=== PATIENT | female | born 1935 | race Caucasian/White ===

== ENCOUNTER → 2016-03-13 | Outpatient (CLI) | payer OTHER ==
[~2016-03-13] MED LIST: ANT25 PO; ASPEC81 PO; ASPI1TAB83 PO; COCO1CAP PO; CYAN500T PO; ESCI1TAB9 PO; IBUP-103 PO; MECL1TAB42 PO; METO50TA16 PO; OMEG10007 PO; POTA10CA28 PO; SPIR50TA PO; TAMO20TA9 PO; VERA120T15 PO; [UNRECOGNIZED DRUG - CODE] PO
== END | disposition home or self-care (01) ==
LOC: C.LABPVFM 03-11 13:24
PROVIDERS: ATTEND Family Medicine
DX: R05 Cough (principal)

== ENCOUNTER → 2016-04-14 | Outpatient (CLI) | payer OTHER ==
[~2016-04-14] MED LIST changes: +TAMO20TA47 PO; -TAMO20TA9 PO
--- NOTE | 2016-04-14 10:17 | DIAGNOSTIC IMAGING REPORT ---
CHEST 2 VIEWS ROUTINE CLINICAL HISTORY: Cough. COMPARISON STUDY: Chest radiograph November 02, 2015. FINDINGS: The lung volumes are normal. There is no pneumothorax or pleural effusion. Pulmonary vascularity is normal. Hazy opacity along left heart border is unchanged and likely reflects epicardial fat pad or atelectasis. Minimal right lower lung opacity favors atelectasis. There is no consolidation to suggest pneumonia. Cardiac size is normal. Mediastinal contours are normal. IMPRESSION: 1. No acute cardiopulmonary findings. 2. Mild bibasilar opacities which favor atelectasis. Electronically signed by: Manuel Garsia M.D. 04/14/2016 10:16 AM Dictated Date/Time: 04/14/2016 10:15 AM
== END | disposition home or self-care (01) ==
LOC: C.RADPV 09:58
PROVIDERS: ATTEND Family Medicine
DX: R05 Cough (principal)

== ENCOUNTER → 2016-06-23 | Outpatient (CLI) | payer OTHER ==
[~2016-06-23] MED LIST changes: -TAMO20TA47 PO; +TAMO20TA9 PO
[2016-06-23 12:13] LABS: BASO % 0.6 %; BASO ABS # 0.04 K/uL (0-0.2); COMPLETE YES; EOS % 4.1 %; HEMATOCRIT 42.8 % (37-47); IG% 0.5 %; LYMPH % 43.7 %; LYMPH ABS # 2.79 K/uL (1.2-3.4); MEAN CELL VOLUME 92.2 fL (80-100); MEAN CORPUSCULAR HGB CONC 32.5 g/dl (32-36); MEAN PLATELET VOLUME 9.7 fL (7.4-10.4); MONO % 11.4 %; NEUT % 39.7 %; PLATELET COUNT 235 K/uL (130-400); RED BLOOD COUNT 4.64 M/uL (4.2-5.4); WHITE BLOOD COUNT 6.38 K/uL (4.8-10.8)
[2016-06-23 13:37] LABS: BLOOD UREA NITROGEN 14 mg/dl (7-18); CALCIUM 8.8 mg/dl (8.5-10.1); CARBON DIOXIDE 30 mmol/L (21-32); CHLORIDE 106 mmol/L (98-107); GLUCOSE 96 mg/dl (70-99); MAGNESIUM 2.3 mg/dl (1.8-2.4); POTASSIUM 4.7 mmol/L (3.5-5.1); SODIUM 142 mmol/L (136-145)
--- NOTE | 2016-07-08 10:27 | CODING QUERY MEDICAL NECESSITY ---
CQSUPPORTING DIAGNOSIS NEEDED A supporting diagnosis is required for the test/procedure performed on this patient in order for us to be reimbursed by the patient's insurance. Please provide a supporting diagnosis for the following test/procedure listed below next to the test name along with your signature. *If there is no additional diagnosis for this patient that would support the following test/procedure please document that below next to the test/procedure. Test(s)/Procedure(s) that require a supporting diagnosis: DOS 06/23/16 VITAMIN D TEST Provider Signature: Date: Thank you Lelia Ortega Health Information Management Once completed, please kindly fax back to [phone] For questions please call [phone]
== END | disposition home or self-care (01) ==
LOC: C.LAB1850 10:06
PROVIDERS: ATTEND Family Medicine
DX: I47.1 Supraventricular tachycardia (principal); E78.5 Hyperlipidemia, unspecified; R39.15 Urgency of urination; F41.9 Anxiety disorder, unspecified; G20 Parkinson's disease; R05 Cough; R53.83 Other fatigue

== ENCOUNTER 2016-11-01 18:17 | Observation (INO) | payer OTHER ==
[~2016-11-01] VITALS: Ht 170.2 cm; Wt 76.9 kg
[2016-11-01] MEDS: SODIUM CHLORIDE 0.9% 1000ML 1,000 ML IV SCH (00:25)
[~2016-11-01 18:17] MED LIST changes: -ASPI1TAB83 PO; -COCO1CAP PO; -ESCI1TAB9 PO; -MECL1TAB42 PO; -METO50TA16 PO; -SPIR50TA PO; +TAMO20TA47 PO; -TAMO20TA9 PO
[2016-11-01] MEDS ORDERED: MECLIZINE HCL 25 MG TAB PO STA (18:40)
--- NOTE | 2016-11-01 19:02 | DIAGNOSTIC IMAGING REPORT ---
CHEST ONE VIEW PORTABLE CLINICAL HISTORY: 81 years-old Female presenting with cp. TECHNIQUE: Portable upright AP view of the chest was obtained. COMPARISON: 04/14/2016. FINDINGS: The patient is BAKER rotated. Top normal cardiac size. Minimal persistent bandlike opacity in the lingula, likely atelectasis or scarring. No pleural effusion or pneumothorax. Osseous structures normal. Upper abdomen normal. IMPRESSION: 1. No acute cardiopulmonary disease. Electronically signed by: Herber Calvillo M.D. 11/01/2016 7:01 PM Dictated Date/Time: 11/01/2016 7:00 PM
[2016-11-01] MEDS ORDERED: ASPI1TAB83 PO (19:18)
[2016-11-01] MEDS ORDERED: MECL1TAB42 PO (19:20)
[2016-11-01] MEDS ORDERED: COCO1CAP PO (19:24)
[2016-11-01 19:27] LABS: BASO % 0.3 %; BASO ABS # 0.02 K/uL (0-0.2); COMPLETE YES; EOS % 1.1 %; HEMATOCRIT 47.6 % (37-47); IG% 0.5 %; LYMPH % 24.5 %; LYMPH ABS # 1.58 K/uL (1.2-3.4); MEAN CELL VOLUME 90.8 fL (80-100); MEAN CORPUSCULAR HEMOGLOBIN 29.6 pg (25-34); MEAN CORPUSCULAR HGB CONC 32.6 g/dl (32-36); MEAN PLATELET VOLUME 9.6 fL (7.4-10.4); MONO % 9.6 %; PLATELET COUNT 206 K/uL (130-400); RED BLOOD COUNT 5.24 M/uL (4.2-5.4); WHITE BLOOD COUNT 6.46 K/uL (4.8-10.8)
[2016-11-01 19:41] LABS: INR 1.1 (0.9-1.1); PROTHROMBIN TIME (PATIENT) 11.5 SECONDS (9.0-12.0)
[2016-11-01 19:43] LABS: BUN/CREATININE RATIO 20.6 (10-20); CALCIUM 9.5 mg/dl (8.5-10.1); CREATININE 1.1 mg/dl (0.60-1.20); POTASSIUM 4.5 mmol/L (3.5-5.1)
--- NOTE | 2016-11-01 20:23 | DIAGNOSTIC IMAGING REPORT ---
HEAD WITHOUT CONTRAST (CT) CLINICAL HISTORY: 81 years-old Female presenting with vertigo eval for cva. TECHNIQUE: Multidetector CT imaging of the head was performed after the administration of intravenous contrast. IV contrast: None. A dose lowering technique was used consistent with the principles of ALARA (as low as reasonably achievable). COMPARISON: None. CT DOSE (mGy.cm): The estimated cumulative dose is 537.48 mGy.cm. FINDINGS: Adult Neuropsychologist topogram: Unremarkable. Ventricles and sulci normal in size. Brain parenchyma normal in appearance with preserved nesbitt-white differentiation. No mass effect or midline shift. No hemorrhage or acute territorial infarct. No extra-axial fluid collection. Paranasal sinuses and mastoid air cells clear. Calvarium intact. IMPRESSION: 1. No acute intracranial pathology. Electronically signed by: Herber Calvillo M.D. 11/01/2016 8:21 PM Dictated Date/Time: 11/01/2016 8:20 PM
[2016-11-01] MEDS ORDERED: PROMETHAZINE HCL INJ 12.5 MG in SODIUM CHLORIDE 0.9% 50ML 50 ML IV STA (20:25)
--- NOTE | 2016-11-01 21:57 | History and Physical ---
History & Physical Date & Time of Service: Nov 01, 2016 at 21:57 Chief Complaint: Headache/Dizziness/Short Of Breath Primary Care Physician: Luzma Brooke D.O. History of Present Illness Source: patient This is a 81 yo F with past medical hx o Breast CA on remission, depression , anxiety disorder . GERD, hx of BPPV presents to ED with complain of worsening of dizzy spell Pt has chronic vertigo , was diagnosed as BPPV in prior office visit with Family physician , takes Meclizine as needed her symptoms of dizzy spell worse with movement has been off an on for past few months last 2 days -symptom got worse and persistent , minimum activity , head movement making her dizzy and lightheaded , feels room is spinning , associated with nausea and lightheadedness, feels off balance , did not had a fall or syncope no complain of visual disturbance , no headache , no weakness or paresthesia has been taking Meclizine with no benefit pt lives by herself , family was very concerned for her being off balance and fall risk in the ED -CT head w/out contrast negative for CVA Vitals , labs remains stable EKG /Cardiac monitoring no arrhythmia noted pt will be observed in Tele monitoring continue to provide supportive care PT consulted to do Giovanna Maneuver in AM Past Medical/Surgical History Surgical Problems: (1) History of cholecystectomy Status: Resolved (2) History of right mastectomy Status: Resolved Family History Patient reports no known family medical history. Social History Smoking Status: Former Smoker Drug Use: none Occupational Status: retired Immunizations History of Influenza Vaccine: Yes Influenza Vaccine Date: Dec 07, 2009 History of Tetanus Vaccine?: No History of Pneumococcal: Yes Pneumococcal Date: Dec 07, 2009 History of Hepatitis B Vaccine: No Multi-Drug Resistant Organisms History of MDRO: No Allergies Coded Allergies: Acetaminophen (Verified Allergy, Unknown, unknown, 11/01/16) Adhesives (Unverified Allergy, Unknown, rash, 11/01/16) Codeine (Verified Allergy, Unknown, 11/01/16) Oxycodone (Verified Allergy, Unknown, unknown, 11/01/16) Penicillins (Verified Allergy, Unknown, 11/01/16) AMOXIL Home Medications Scheduled Aspirin (Aspirin), 81 MG PO DAILY Coconut Oil (Coconut Oil Organic), 1,000 MG PO DAILY Cyanocobalamin (Vitamin B-12), 1,000 MCG PO BID Potassium Chloride (Micro-K Ext Rel), 10 MEQ PO BID Verapamil (Calan), 120 MG PO BID Scheduled PRN Meclizine Hcl (Meclizine Hcl), 1 TAB PO QID PRN for Dizziness or Vertigo Review of Systems Constitutional: + weakness, + fatigue Respiratory: No cough, No sputum, No wheezing, No shortness of breath, No dyspnea on exertion, No dyspnea at rest, No hemoptysis, No problem reported Cardiovascular: No chest pain, No orthopnea, No PND, No edema, No claudication , No palpitations, No problem reported Abdomen: + nausea, No pain, No vomiting, No diarrhea, No constipation, No GI bleeding, No problem reported Neurologic: + vertigo, + balance problems (dizzy spell ) Physical Exam Vital Signs Date Time Temp Pulse Resp B/P (MAP) Pulse Ox O2 Delivery O2 Flow Rate FiO2 11/01/16 21:53 53 20 143/56 93 Room Air 11/01/16 20:20 56 20 155/58 96 Room Air 11/01/16 18:51 97 Room Air 11/01/16 18:30 51 11/01/16 18:28 36.6 51 18 176/64 97 Room Air General Appearance: no apparent distress Head: normocephalic, atraumatic Eyes: + pertinent finding (mild nystagmus on lateral gaze ) Neck: thyroid normal, no JVD, no carotid bruits, trachea midline Respiratory/Chest: chest non-tender, lungs clear, normal breath sounds, no respiratory distress Cardiovascular: regular rate, rhythm, no JVD Abdomen/GI: non tender, soft Extremities/Musculoskelatal: normal inspection, no calf tenderness, normal capillary refill, no pedal edema, normal range of motion Neurologic/Psych: no motor/sensory deficits, alert, oriented x 3 Skin: normal color, warm/dry, no rash Lymphatic: no adenopathy Diagnostics Laboratory Results Results Past 24 Hours Test 11/01/16 19:14 11/01/16 19:18 Range/Units White Blood Count 6.46 4.8-10.8 K/uL Red Blood Count 5.24 4.2-5.4 M/uL Hemoglobin 15.5 12.0-16.0 g/dL Hematocrit 47.6 37-47 % Mean Corpuscular Volume 90.8 80-100 fL Mean Corpuscular Hemoglobin 29.6 25-34 pg Mean Corpuscular Hemoglobin Concent 32.6 32-36 g/dl Platelet Count 206 130-400 K/uL Mean Platelet Volume 9.6 7.4-10.4 fL Neutrophils (%) (Auto) 64.0 % Lymphocytes (%) (Auto) 24.5 % Monocytes (%) (Auto) 9.6 % Eosinophils (%) (Auto) 1.1 % Basophils (%) (Auto) 0.3 % Neutrophils # (Auto) 4.14 1.4-6.5 K/uL Lymphocytes # (Auto) 1.58 1.2-3.4 K/uL Monocytes # (Auto) 0.62 0.11-0.59 K/uL Eosinophils # (Auto) 0.07 0-0.5 K/uL Basophils # (Auto) 0.02 0-0.2 K/uL RDW Standard Deviation 47.7 36.4-46.3 fL RDW Coefficient of Variation 14.1 11.5-14.5 % Immature Granulocyte % (Auto) 0.5 % Immature Granulocyte # (Auto) 0.03 0.00-0.02 K/uL Prothrombin Time 11.5 9.0-12.0 SECONDS Prothromb Time International Ratio 1.1 0.9-1.1 Activated Partial Thromboplast Time 26.4 21.0-31.0 SECONDS Partial Thromboplastin Ratio 1.0 Sodium Level 137 136-145 mmol/L Potassium Level 4.5 3.5-5.1 mmol/L Chloride Level 100 98-107 mmol/L Carbon Dioxide Level 31 21-32 mmol/L Anion Gap 6.0 3-11 mmol/L Blood Urea Nitrogen 23 7-18 mg/dl Creatinine 1.10 0.60-1.20 mg/dl Est Creatinine Clear Calc Drug Dose 44.5 ml/min Estimated GFR () 54.9 Estimated GFR (Non- 47.4 BUN/Creatinine Ratio 20.6 10-20 Random Glucose 111 70-99 mg/dl Calcium Level 9.5 8.5-10.1 mg/dl Bedside Troponin I < 0.030 0-0.045 ng/ml Diagnostic Radiology CT HEAD WITH OUT CONTRAST : FINDINGS: Bioinformatics Engineer topogram: Unremarkable. Ventricles and sulci normal in size. Brain parenchyma normal in appearance with preserved nesbitt-white differentiation. No mass effect or midline shift. No hemorrhage or acute territorial infarct. No extra-axial fluid collection. Paranasal sinuses and mastoid air cells clear. Calvarium intact. IMPRESSION: 1. No acute intracranial pathology. CHEST XRAY : FINDINGS: The patient is BAKER rotated. Top normal cardiac size. Minimal persistent bandlike opacity in the lingula, likely atelectasis or scarring. No pleural effusion or pneumothorax. Osseous structures normal. Upper abdomen normal. IMPRESSION: 1. No acute cardiopulmonary disease. CAROTID ARTERY ULTRASOUND : IMPRESSION: No hemodynamically significant stenosis seen within the carotid arteries. EKG Vent. rate 50 BPM ID interval 218 ms QRS duration 90 ms QT/QTc 470/428 ms P-R-T axes 61 42 46 Sinus bradycardia with 1st degree A-V block Otherwise normal ECG When compared with ECG of 29-AUG-2013 11:47, ID interval has increased Incomplete right bundle branch block is no longer Present Impression Assessment and Plan DIZZY SPELL : clinically appears to be due to BPPV ( benign Paroxysmal positional Vertigo ) no focal neurological deficit monitor in tele to R/o arrhythmia Carotid Duplex ordered ECHO to asses valvular heart disease ( no murmur noted on auscultation ) ordered for orthostatic vitals PT consulted for Giovanna Maneuver observe fall precaution ANXIETY DISORDER ; recently started on Lexapro 10 mg daily -continued HTN : BP stable cont Verapamil ordered for Orthostatic vital check GERD : on PPI FULL CODE DVT PROPHYLAXIS : Sub q heparin DISPOSITION : expected to be discharged home when medically stable PT/OT eval prior to discharge Social service consulted for discharge planning Level of Care Telemetry Resuscitation Status FULL RESUSCITATION VTE Prophylaxis Given or contraindicated: Unfractionated heparin SQ Additional Copies To Luzma Brooke D.O.
[2016-11-01] MEDS ORDERED: ONDANSETRON INJ 2 MG/ML 2 ML VIAL IV PRN (22:15)
[2016-11-01] MEDS ORDERED: PROMETHAZINE HCL INJ 12.5 MG in SODIUM CHLORIDE 0.9% 50ML 50 ML IV PRN (22:15)
[2016-11-01] MEDS ORDERED: MECLIZINE HCL 12.5 MG TAB PO PRN ×2 (22:15)
[2016-11-01] MEDS ORDERED: NITROGLYCERIN 0.4 MG SL PER TAB CHARGE SL PRN (22:15)
[2016-11-01] MEDS ORDERED: ACETAMINOPHEN 325 MG TAB PO PRN (22:15)
[2016-11-01] MEDS ORDERED: POLYETHYLENE (MIRALAX) 17 GM PACK PO PRN (22:15)
[2016-11-01] MEDS ORDERED: MAGNESIUM HYDROXIDE SUSP 30 ML UDC PO PRN (22:15)
[2016-11-01] MEDS ORDERED: ALUMINUM/MAGNESIUM/SIMETH (MAALOX MAX) 30 ML UDC PO PRN (22:15)
[2016-11-01] MEDS ORDERED: LORAZEPAM 0.5 MG TAB PO PRN (22:30)
[2016-11-01] MEDS ORDERED: IV FLUIDS COMPLETED PRN (22:45)
[2016-11-01 22:58] VITALS: BP 146/77; PULSE 54; TEMP 36.8; O2SAT 95; Ht 170.2 cm; Wt 76.9 kg
--- NOTE | 2016-11-01 22:59 | DIAGNOSTIC IMAGING REPORT ---
CAROTID DOPPLER NECK ART CLINICAL HISTORY: 81 years-old Female presenting with DIZZY SPELL R/O STENOSIS . TECHNIQUE: Real-time grayscale and color and spectral Doppler ultrasound imaging of the bilateral carotid arteries was performed. NASCET criteria was used in evaluating this study. COMPARISON: None. FINDINGS: Right: Common carotid: Patent. Peak systolic velocity 83 cm/s. Internal carotid artery: Patent. Peak systolic velocity 89 cm/s. External carotid artery: Patent. Peak systolic velocity 122 cm/s. Systolic ratio: 1.07. Left: Common carotid: Patent. Peak systolic velocity 94 cm/s. Internal carotid artery: Patent. Peak systolic velocity 92 cm/s. External carotid artery: Patent. Peak systolic velocity 94 cm/s. Systolic ratio: 0.98. Bilateral antegrade flow within the vertebral arteries. Reference ranges: Stenosis measurements are compared velocity parameters. Normal ICA peak systolic velocity less than 125 cm/s. Normal ICA peak systolic velocity to common carotid artery velocity ratio is less than 2: less than 2 equates to less than 50% stenosis, 2-4 equates to 50-69% stenosis, greater than 4 equates to greater than or equal to 70% stenosis. Normal ICA end-diastolic velocity less than 40. IMPRESSION: No hemodynamically significant stenosis seen within the carotid arteries. Electronically signed by: Herber Calvillo M.D. 11/01/2016 10:58 PM Dictated Date/Time: 11/01/2016 10:57 PM
--- NOTE | 2016-11-01 23:54 | EMERGENCY ROOM VISIT NOTE ---
History Report prepared by Gary: Spohia Gomez Under the Supervision of: Dr. Demetrius Long M.D. First contact with patient: 18:24 Stated Complaint: HEADACHE/DIZZINESS/SHORT OF BREATH History of Present Illness The patient is an 81 year old female who presents to the Emergency Room with complaints of worsening dizziness starting 2 days ago. The patient states that she has had a history of dizziness and is on Meclizine. She denies taking any before coming here. She describes it as the room spinning when she is not moving. She notes that moving her head makes the dizziness worse. She states that she is unable to walk because of it. The patient notes that when an episode starts to come on she gets the chills and becomes diaphoretic but she denies any fevers. The patient states that she has also been experiencing vomiting and diarrhea. The daughter notes that this tends to happen when the patient becomes dehydrated. The patient denies numbness and weakness on one side of her body. She notes that yesterday she was having chest pains that felt like a stitch. She reports that it only lasted a few seconds. The patient notes that she was also short of breath, but states that she has been for a month. She notes that she has discussed this with her PCP and is meeting with a ranch hand for a full workup in a few weeks. The patient denies any tinnitus, cough, and a history of stroke. She notes that she takes a baby Aspirin daily. She notes she has hearing loss, but that it has been gradual. Source of History: patient, family Onset: 2 days ago Position: other (global) Quality: other (room spinning) Timing: worsening Modifying Factors (Worsening): movement (her head) Associated Symptoms: + chills, + diaphoresis, + chest pain, + SOB, + vomiting, + diarrhea, No fevers, No cough, No weakness, No numbness Note: The patient complains of not being able to walk and gradual hearing loss. Review of Systems See HPI for pertinent positives & negatives. A total of 10 systems reviewed and were otherwise negative. Past Medical & Surgical Medical Problems: (1) Atrial Fibrillation (2) Cardiac Dysrhythmias Nec (3) Diaphragmatic Hernia (4) Diverticulosis Colon (W/O Ment Of Hemorrhage) (5) Dizzy spells (6) Hx Of Breast Malignancy (7) Hyperlipidemia Nec/Nos (8) Hypertension Nos (9) Irritable Bowel Syndrome (10) Parkinsons disease Surgical Problems: (1) History of cholecystectomy (2) History of right mastectomy Family History Patient reports no known family medical history. Social History Smoking Status: Never Smoker Alcohol Use: occasionally Drug Use: none Housing Status: lives alone Occupation Status: retired Current/Historical Medications Scheduled Aspirin (Aspirin), 81 MG PO DAILY Coconut Oil (Coconut Oil Organic), 1,000 MG PO DAILY Cyanocobalamin (Vitamin B-12), 1,000 MCG PO BID Potassium Chloride (Micro-K Ext Rel), 10 MEQ PO BID Verapamil (Calan), 120 MG PO BID Scheduled PRN Meclizine Hcl (Meclizine Hcl), 1 TAB PO QID PRN for Dizziness or Vertigo Allergies Coded Allergies: Acetaminophen (Verified Allergy, Unknown, unknown, 11/01/16) Adhesives (Unverified Allergy, Unknown, rash, 11/01/16) Codeine (Verified Allergy, Unknown, 11/01/16) Oxycodone (Verified Allergy, Unknown, unknown, 11/01/16) Penicillins (Verified Allergy, Unknown, 11/01/16) AMOXIL Physical Exam Vital Signs Date Time Temp Pulse Resp B/P (MAP) Pulse Ox O2 Delivery O2 Flow Rate FiO2 11/01/16 21:53 53 20 143/56 93 Room Air 11/01/16 20:20 56 20 155/58 96 Room Air 11/01/16 18:51 97 Room Air 11/01/16 18:30 51 11/01/16 18:28 36.6 51 18 176/64 97 Room Air Physical Exam Constitutional: Vital signs reviewed. Eyes: Pupils are equal round reactive to light. Conjunctiva are noninjected. ENT: Pharynx is clear without erythema or exudate. Mucous membranes are moist. Neck supple without meningeal signs. Respiratory: Clear to auscultation bilaterally. Breath sounds are equal bilaterally. Cardiovascular: Regular rate and rhythm. No rubs or gallops. GI: Soft, nondistended and nontender. Bowel sounds are present. Musculoskeletal: No peripheral edema. No lower extremity tenderness. Integumentary: No cyanosis. Neurological: The patient is awake and alert. Cranial nerves II-XII are intact. Motor is 5 out of 5 all extremities. Sensation is intact to light touch all extremities. Normal speech. No pronator drift. No limb ataxia. No dysdiadochokinesis. Positive head impulse testing. Negative test of skew. Right lateral nystagmus. No vertical or rotatory nystagmus. Psychiatric: Normal affect. Medical Decision & Procedures ER Provider Diagnostic Interpretation: Radiology results as stated below per my review and the radiologist's interpretation: HEAD WITHOUT CONTRAST (CT) CLINICAL HISTORY: 81 years-old Female presenting with vertigo eval for cva. TECHNIQUE: Multidetector CT imaging of the head was performed after the administration of intravenous contrast. IV contrast: None. A dose lowering technique was used consistent with the principles of ALARA (as low as reasonably achievable). COMPARISON: None. CT DOSE (mGy.cm): The estimated cumulative dose is 537.48 mGy.cm. FINDINGS: Printing Engineer topogram: Unremarkable. Ventricles and sulci normal in size. Brain parenchyma normal in appearance with preserved nesbitt-white differentiation. No mass effect or midline shift. No hemorrhage or acute territorial infarct. No extra-axial fluid collection. Paranasal sinuses and mastoid air cells clear. Calvarium intact. IMPRESSION: 1. No acute intracranial pathology. Electronically signed by: Herber Calvillo M.D. 11/01/2016 8:21 PM Dictated Date/Time: 11/01/2016 8:20 PM CHEST ONE VIEW PORTABLE CLINICAL HISTORY: 81 years-old Female presenting with cp. TECHNIQUE: Portable upright AP view of the chest was obtained. COMPARISON: 04/14/2016. FINDINGS: The patient is BAKER rotated. Top normal cardiac size. Minimal persistent bandlike opacity in the lingula, likely atelectasis or scarring. No pleural effusion or pneumothorax. Osseous structures normal. Upper abdomen normal. IMPRESSION: 1. No acute cardiopulmonary disease. Electronically signed by: Herber Calvillo M.D. 11/01/2016 7:01 PM Dictated Date/Time: 11/01/2016 7:00 PM Laboratory Results 11/01/16 19:14 Red Blood Count 5.24, Mean Corpuscular Volume 90.8, Mean Corpuscular Hemoglobin 29.6, Mean Corpuscular Hemoglobin Concent 32.6, Mean Platelet Volume 9.6, Neutrophils (%) (Auto) 64.0, Lymphocytes (%) (Auto) 24.5, Monocytes (%) (Auto) 9.6, Eosinophils (%) (Auto) 1.1, Basophils (%) (Auto) 0.3, Neutrophils # (Auto) 4.14, Lymphocytes # (Auto) 1.58, Monocytes # (Auto) 0.62, Eosinophils # (Auto) 0.07, Basophils # (Auto) 0.02 11/01/16 19:14 Test 11/01/16 19:14 11/01/16 19:18 White Blood Count 6.46 K/uL (4.8-10.8) Red Blood Count 5.24 M/uL (4.2-5.4) Hemoglobin 15.5 g/dL (12.0-16.0) Hematocrit 47.6 % (37-47) Mean Corpuscular Volume 90.8 fL (80-100) Mean Corpuscular Hemoglobin 29.6 pg (25-34) Mean Corpuscular Hemoglobin Concent 32.6 g/dl (32-36) Platelet Count 206 K/uL (130-400) Mean Platelet Volume 9.6 fL (7.4-10.4) Neutrophils (%) (Auto) 64.0 % Lymphocytes (%) (Auto) 24.5 % Monocytes (%) (Auto) 9.6 % Eosinophils (%) (Auto) 1.1 % Basophils (%) (Auto) 0.3 % Neutrophils # (Auto) 4.14 K/uL (1.4-6.5) Lymphocytes # (Auto) 1.58 K/uL (1.2-3.4) Monocytes # (Auto) 0.62 K/uL (0.11-0.59) Eosinophils # (Auto) 0.07 K/uL (0-0.5) Basophils # (Auto) 0.02 K/uL (0-0.2) RDW Standard Deviation 47.7 fL (36.4-46.3) RDW Coefficient of Variation 14.1 % (11.5-14.5) Immature Granulocyte % (Auto) 0.5 % Immature Granulocyte # (Auto) 0.03 K/uL (0.00-0.02) Prothrombin Time 11.5 SECONDS (9.0-12.0) Prothromb Time International Ratio 1.1 (0.9-1.1) Activated Partial Thromboplast Time 26.4 SECONDS (21.0-31.0) Partial Thromboplastin Ratio 1.0 Anion Gap 6.0 mmol/L (3-11) Est Creatinine Clear Calc Drug Dose 44.5 ml/min Estimated GFR () 54.9 Estimated GFR (Non- 47.4 BUN/Creatinine Ratio 20.6 (10-20) Calcium Level 9.5 mg/dl (8.5-10.1) Bedside Troponin I < 0.030 ng/ml (0-0.045) Laboratory results as reviewed by me. Medications Administered Medications (Trade) Dose Ordered Sig/Scott Route Start Time Stop Time Status Last Admin Dose Admin Meclizine HCl (Antivert Tab) 25 mg NOW STAT PO 11/01/16 18:40 11/01/16 18:42 DC 11/01/16 19:10 25 MG Promethazine HCl 12.5 mg/Sodium Chloride 50.5 ml @ 204 mls/hr NOW STAT IV 11/01/16 20:25 11/01/16 20:39 DC 11/01/16 20:32 204 MLS/HR ECG Indication: SOB/dyspnea Rate (beats per minute): 50 Rhythm: sinus bradycardia Findings: 1st degree AV block, no acute ischemic change, no ectopy ED Course 1828: The patient was evaluated in room C12B. A complete history and physical exam was performed. 1839: Ordered Meclizine HCl 25 mg PO. 2019: I reevaluated the patient and she is feeling much better. 2023: The patient told the nurse that her dizziness was not improved and she is unsure why she told me that it was. She states that the dizziness is worse when she moves her head. 2024: Ordered Promethazine HCl 12.5 mg/ Sodium Chloride 50.5 ml @ 204 mls/hr IV. 2143: I reevaluated the patient and she still feels dizzy. She would like to stay. 2154: I spoke with Dr. Haines of [facility]. We discussed the patient and her results. The patient will be further evaluated by Dr. Haines. Medical Decision this is an 81-year-old female presents with dizziness and chest pain. Differential diagnosis includes benign positional vertigo, labyrinthitis, Mni re's disease, infarct, intracranial hemorrhage, pleurisy, GERD, ACS. I did perform a limited focused review of portions of the patient's old chart on the electronic medical record. The patient has had no recent pertinent visits to this hospital. I did evaluate the patient as noted above. The patient is presenting with a history of vertigo. She has a prior history of vertigo and takes meclizine. She states this feels similar to her prior episodes. She has no signs of central vertigo. She has a positive head impulse test. She has lateral nystagmus improved with fixation. She has a negative test of skew and no cerebellar findings. I did treat her with meclizine. IV access was established. The patient was placed on a continuous public records researcher. I did order and personally review the patient's 12-lead EKG and chest x-ray as described above. I did order and review the patient's blood work as noted in the electronic medical record. I did order a CT of the head. I did review the images myself as well as the radiology report as described above. There is no evidence of intracranial abnormality. I did reassess the patient. She had continued vertigo. She was given Phenergan IV. I did reassess the patient again. She did not feel any better. She will therefore be hospitalized for further care. I did discuss the case with the hospitalist and pillowcase cleaner. Medication Reconcilliation Current Medication List: was personally reviewed by me Blood Pressure Screening Patient's blood pressure: Elevated blood pressure Blood pressure disposition: Referred to PCP Consults Time Called: 2144 Consulting Physician: Dr. Keo Mancia Returned Call: [address] Haines of [facility]. We discussed the patient and her results. The patient will be further evaluated by Dr. Haines. Impression Primary Impression: Acute onset of severe vertigo Additional Impression: Left sided chest pain Scribe Attestation The scribe's documentation has been prepared under my direct and personally reviewed by me in its entirety. I confirm that the note above accurately reflects all work, treatment, procedures, and medical decision making performed by me. Departure Information Dispostion Being Evaluated By Hospitalist Referrals Luzma Brooke D.O. (PCP) Problem Qualifiers
[2016-11-02] VITALS (9 sets, daily range): BP systolic 107–152; BP diastolic 52–79; PULSE 52–55; TEMP 36.4–37.1; O2SAT 91–97
[2016-11-02 00:24] LABS: URINE APPEARANCE CLEAR (CLEAR); URINE BILIRUBIN NEG (NEG); URINE COLOR YELLOW; URINE NITRITE NEG (NEG); URINE PH 7.5 (4.5-7.5); URINE SPECIFIC GRAVITY 1.005 (1.000-1.030); UROBILINOGEN NEG (NEG); ZZUR CULT IF INDIC CLEAN CATCH NO
[2016-11-02 00:27] LABS: MANUAL MICROSCOPIC REQUIRED? NO; REVIEW REQ? NO
[2016-11-02] MEDS: HEPARIN SOD 5000 UNIT/0.5 ML CARP SQ SCH ×3 (06:18→20:58)
[2016-11-02] MEDS: POTASSIUM CHLORIDE 10 MEQ TABCR PO SCH ×2 (08:41→20:57)
[2016-11-02] MEDS: VERAPAMIL HCL 120 MG TABCR PO SCH ×2 (08:41→20:57)
[2016-11-02] MEDS: ASPIRIN 81 MG ECTAB PO SCH (08:41)
[2016-11-02] MEDS: ESCITALOPRAM OXALATE 10 MG TAB PO SCH (08:41)
[2016-11-02] MEDS: CYANOCOBALAMIN 500 MCG TAB (VIT B-12) PO SCH ×2 (08:42→20:57)
[2016-11-02] MEDS: SODIUM CHLORIDE 0.9% 1000ML 1,000 ML IV SCH ×2 (08:42→16:33)
[2016-11-02] MEDS ORDERED: COCONUT OIL 1000 MG PO SCH (09:00)
--- NOTE | 2016-11-02 11:36 | Progress Note ---
Internal Med Progress Note Date of Service: Nov 02, 2016. Provider Documentation: SUBJECTIVE: sitting on the chair comfortably says her dizziness and vertigo much improved nausea improved afebrile no sob or chest pain OBJECTIVE: Vital Signs-as noted below Exam: General-alert and oriented. Not in distress ENT-normal hearing Neck-no neck masses Lungs-cta b/l no wheezing or crackles Heart-s1 and s2 heard regular rate and rhythm, no murmurs Abdomen-soft bowel sounds present non tender no distension Extremities- no edema no erythema Neuro-alert and oriented moves extremities Lab data as noted below. ASSESSMENT & PLAN: DIZZY SPELL : clinically appears to be due to BPPV ( benign Paroxysmal positional Vertigo ) improving ct head and carotid Doppler unremarkable await echo PT for Giovanna maneuver ANXIETY DISORDER ; on Lexapro 10 mg daily will monitor HTN : On Verapamil will monitor GERD : on PPI FULL CODE DVT PROPHYLAXIS : Sub q heparin DISPOSITION monitor in tele pt/ot possible d/c in am if stable Vital Signs: Date Time Temp Pulse Resp B/P (MAP) Pulse Ox O2 Delivery O2 Flow Rate FiO2 11/02/16 08:00 97 Room Air 11/02/16 07:07 36.7 53 18 128/52 (77) 91 Room Air 11/02/16 04:00 Room Air 11/02/16 03:50 36.4 52 20 147/65 (92) 93 Room Air 152/79 (103) 130/78 (95) 11/01/16 22:58 36.8 54 18 146/77 95 Room Air 11/01/16 21:53 53 20 143/56 93 Room Air 11/01/16 20:20 56 20 155/58 96 Room Air 11/01/16 18:51 97 Room Air 11/01/16 18:30 51 11/01/16 18:28 36.6 51 18 176/64 97 Room Air Lab Results: Results Past 24 Hours Test 11/01/16 19:14 11/01/16 19:18 11/02/16 00:10 11/02/16 03:55 Range/Units White Blood Count 6.46 4.8-10.8 K/uL Red Blood Count 5.24 4.2-5.4 M/uL Hemoglobin 15.5 12.0-16.0 g/dL Hematocrit 47.6 37-47 % Mean Corpuscular Volume 90.8 80-100 fL Mean Corpuscular Hemoglobin 29.6 25-34 pg Mean Corpuscular Hemoglobin Concent 32.6 32-36 g/dl Platelet Count 206 130-400 K/uL Mean Platelet Volume 9.6 7.4-10.4 fL Neutrophils (%) (Auto) 64.0 % Lymphocytes (%) (Auto) 24.5 % Monocytes (%) (Auto) 9.6 % Eosinophils (%) (Auto) 1.1 % Basophils (%) (Auto) 0.3 % Neutrophils # (Auto) 4.14 1.4-6.5 K/uL Lymphocytes # (Auto) 1.58 1.2-3.4 K/uL Monocytes # (Auto) 0.62 0.11-0.59 K/uL Eosinophils # (Auto) 0.07 0-0.5 K/uL Basophils # (Auto) 0.02 0-0.2 K/uL RDW Standard Deviation 47.7 36.4-46.3 fL RDW Coefficient of Variation 14.1 11.5-14.5 % Immature Granulocyte % (Auto) 0.5 % Immature Granulocyte # (Auto) 0.03 0.00-0.02 K/uL Prothrombin Time 11.5 9.0-12.0 SECONDS Prothromb Time International Ratio 1.1 0.9-1.1 Activated Partial Thromboplast Time 26.4 21.0-31.0 SECONDS Partial Thromboplastin Ratio 1.0 Sodium Level 137 136-145 mmol/L Potassium Level 4.5 3.5-5.1 mmol/L Chloride Level 100 98-107 mmol/L Carbon Dioxide Level 31 21-32 mmol/L Anion Gap 6.0 3-11 mmol/L Blood Urea Nitrogen 23 7-18 mg/dl Creatinine 1.10 0.60-1.20 mg/dl Est Creatinine Clear Calc Drug Dose 44.5 ml/min Estimated GFR () 54.9 Estimated GFR (Non- 47.4 BUN/Creatinine Ratio 20.6 10-20 Random Glucose 111 70-99 mg/dl Calcium Level 9.5 8.5-10.1 mg/dl Bedside Troponin I < 0.030 0-0.045 ng/ml Urine Color YELLOW Urine Appearance CLEAR CLEAR Urine pH 7.5 4.5-7.5 Urine Specific [place] 1.005 1.000-1.030 Urine Protein NEG NEG Urine Glucose (UA) NEG NEG Urine Ketones NEG NEG Urine Occult Blood NEG NEG Urine Nitrite NEG NEG Urine Bilirubin NEG NEG Urine Urobilinogen NEG NEG Urine Leukocyte Esterase NEG NEG Total Creatine Kinase 88 26-192 U/L Creatine Kinase MB 0.9 0.5-3.6 ng/ml Creatine Kinase MB Ratio 1.0 0-3.0 Troponin I < 0.015 0-0.045 ng/ml
--- NOTE | 2016-11-02 11:55 | ECHOCARDIOGRAM REPORT ---
*NOTICE TO RECEIVING [employer]Y This information is strictly Confidential and protected under [place] law. [place] law prohibits you from making any further disclosure of this information unless further disclosure is expressly permitted by the written consent of the person to whom it pertains or is authorized by law. A general authorization for the release of medical or other information is not sufficient for this purpose. Hospital accepts no responsibility if the information is made available to any other person, INCLUDING THE PATIENT. Interpretation Summary * Name: YOSSI FRANKLIN Study Date: 11/02/2016 06:58 AM BP: 128/52 mmHg * Patient Location: C.2T\S\E217\S\1 HR: 53 * : 1935 (M/d/yyyy) Gender: Female Height: 68 in * Age: 81 yrs Ethnicity: CA Weight: 169 lb * Ordering Physician: Angelique Haines * Referring Physician: JESUS * Performed By: Mercy Fabian RDCS * * Reason For Study: DIZZY SPELL * BSA: 1.9 m2 * -- Conclusions -- * There is borderline asymmetric left ventricular hypertrophy. * Left ventricular systolic function is normal. * Grade I diastolic dysfunction, (abnormal relaxation pattern). * The left atrium is mildly dilated. * Right ventricular systolic pressure is normal. Procedure Details * A complete two-dimensional transthoracic echocardiogram was performed (2D, M-mode, Doppler and color flow Doppler). Left Ventricle * The left ventricle is normal in size. * There is borderline asymmetric left ventricular hypertrophy. * Ejection Fraction = 65-70%. * Left ventricular systolic function is normal. * Grade I diastolic dysfunction, (abnormal relaxation pattern). * The left ventricular wall motion is normal. Right Ventricle * The right ventricle is normal in size and function. * The right ventricular systolic function is normal as assessed by tricuspid annular plane systolic excursion (TAPSE) (normal >1.5 cm). Atria * The left atrium is mildly dilated. * Right atrial size is normal. Mitral Valve * The mitral valve anatomy is normal. * Significant mitral regurgitation is absent. Tricuspid Valve * The tricuspid valve anatomy is normal. * There is mild tricuspid regurgitation. * Right ventricular systolic pressure is normal. Aortic Valve * The aortic valve is normal in structure and function. * The aortic valve is trileaflet. * No hemodynamically significant valvular aortic stenosis. * There is no significant aortic regurgitation. Great Vessels * The aortic root is normal size. Pericardium/Pleural * There is no pericardial effusion. MMode 2D Measurements and Calculations IVSd 1.2 cm IVSs 1.8 cm LVIDd 4.3 cm LVIDs 2.6 cm LVPWd 0.97 cm LVPWs 1.5 cm IVS/LVPW 1.2 FS 39.1 % EDV(Teich) 82.6 ml ESV(Teich) 24.9 ml EF(Teich) 69.9 % EDV(cubed) 79.0 ml ESV(cubed) 17.8 ml EF(cubed) 77.4 % % IVS thick 54.2 % % LVPW thick 55.1 % LV mass(C)d 156.8 grams LV mass(C)dI 82.4 grams/m\S\2 LV mass(C)s 159.4 grams LV mass(C)sI 83.8 grams/m\S\2 SV(Teich) 57.7 ml SI(Teich) 30.3 ml/m\S\2 SV(cubed) 61.1 ml SI(cubed) 32.1 ml/m\S\2 Ao root diam 2.9 cm Ao root area 6.7 cm\S\2 LA dimension 4.1 cm LA/Ao 1.4 LVAd ap4 25.6 cm\S\2 LVLd ap4 7.9 cm EDV(MOD-sp4) 69.8 ml EDV(sp4-el) 70.5 ml LVAs ap4 12.6 cm\S\2 LVLs ap4 6.2 cm ESV(MOD-sp4) 24.1 ml ESV(sp4-el) 21.8 ml EF(MOD-sp4) 65.5 % EF(sp4-el) 69.1 % LVAd ap2 22.1 cm\S\2 LVLd ap2 7.6 cm EDV(MOD-sp2) 54.2 ml EDV(sp2-el) 54.6 ml LVAs ap2 11.1 cm\S\2 LVLs ap2 6.2 cm ESV(MOD-sp2) 18.6 ml ESV(sp2-el) 16.8 ml EF(MOD-sp2) 65.7 % EF(sp2-el) 69.3 % LVLd %diff -3.81 % EDV(MOD-bp) 61.3 ml LVLs %diff -0.31 % ESV(MOD-bp) 21.1 ml EF(MOD-bp) 65.5 % SV(MOD-sp4) 45.8 ml SI(MOD-sp4) 24.0 ml/m\S\2 SV(MOD-sp2) 35.7 ml SI(MOD-sp2) 18.7 ml/m\S\2 SV(MOD-bp) 40.2 ml SI(MOD-bp) 21.1 ml/m\S\2 SV(sp4-el) 48.7 ml SI(sp4-el) 25.6 ml/m\S\2 SV(sp2-el) 37.9 ml SI(sp2-el) 19.9 ml/m\S\2 Doppler Measurements and Calculations MV E max desirae 98.5 cm/sec MV A max desirae 87.8 cm/sec MV E/A 1.1 MV dec time 0.23 sec Ao V2 max 113.8 cm/sec Ao max PG 5.2 mmHg Ao max PG (full) -0.02 mmHg LV V1 max PG 5.2 mmHg LV V1 max 114.0 cm/sec TR max desirae 177.8 cm/sec
[2016-11-03 03:30] VITALS: BP 146/65; PULSE 54; TEMP 36.8; O2SAT 91
[2016-11-03] MEDS: SODIUM CHLORIDE 0.9% 1000ML 1,000 ML IV SCH (05:41)
[2016-11-03] MEDS: HEPARIN SOD 5000 UNIT/0.5 ML CARP SQ SCH (06:27)
[2016-11-03 07:01] LABS: BUN/CREATININE RATIO 24.1 (10-20); CALCIUM 8.5 mg/dl (8.5-10.1); CREATININE 0.97 mg/dl (0.60-1.20)
[2016-11-03 07:31] VITALS: BP 120/65; PULSE 50; TEMP 36.3; O2SAT 95
[2016-11-03] MEDS: CYANOCOBALAMIN 500 MCG TAB (VIT B-12) PO SCH (07:57)
[2016-11-03] MEDS: ESCITALOPRAM OXALATE 10 MG TAB PO SCH (07:58)
[2016-11-03] MEDS: VERAPAMIL HCL 120 MG TABCR PO SCH (07:58)
[2016-11-03] MEDS: ASPIRIN 81 MG ECTAB PO SCH (07:58)
[2016-11-03] MEDS: POTASSIUM CHLORIDE 10 MEQ TABCR PO SCH (09:46)
--- NOTE | 2016-11-03 10:44 | Progress Note ---
Internal Med Progress Note Date of Service: Nov 03, 2016. Provider Documentation: SUBJECTIVE: sitting on the chair comfortably says her dizziness and vertigo resolved nausea resolved eating fine no sob or chest pain ok for discharge OBJECTIVE: Vital Signs-as noted below Exam: General-alert and oriented. Not in distress ENT-normal hearing Neck-no neck masses Lungs-cta b/l no wheezing or crackles Heart-s1 and s2 heard regular rate and rhythm, no murmurs Abdomen-soft bowel sounds present non tender no distension Extremities- no edema no erythema Neuro-alert and oriented moves extremities Lab data as noted below. ASSESSMENT & PLAN: DIZZY SPELL : clinically appears to be due to BPPV ( benign Paroxysmal positional Vertigo ) improving ct head and carotid Doppler unremarkable Echo: There is borderline asymmetric left ventricular hypertrophy. * Left ventricular systolic function is normal. * Grade I diastolic dysfunction, (abnormal relaxation pattern). * The left atrium is mildly dilated. * Right ventricular systolic pressure is normal. PT for Giovanna maneuver ANXIETY DISORDER ; on Lexapro 10 mg daily will monitor HTN : On Verapamil somewhat bradycardia cut back on dose as per pcp will monitor GERD : on PPI FULL CODE DVT PROPHYLAXIS : Sub q heparin DISPOSITION monitor in tele pt/ot possible d/c today Vital Signs: Date Time Temp Pulse Resp B/P (MAP) Pulse Ox O2 Delivery O2 Flow Rate FiO2 11/03/16 08:00 Room Air 11/03/16 07:31 36.3 50 18 120/65 (83) 95 Room Air 11/03/16 04:26 Room Air 11/03/16 03:30 36.8 54 20 146/65 (92) 91 Room Air 11/03/16 00:31 Room Air 11/02/16 23:34 36.9 55 16 118/63 (81) 91 Room Air 11/02/16 20:49 Room Air 11/02/16 19:54 37.1 53 22 123/69 (87) 95 Room Air 11/02/16 16:00 91 Room Air 11/02/16 15:52 36.9 54 16 107/67 (80) 91 Room Air 11/02/16 12:00 96 Room Air 11/02/16 11:48 36.9 55 17 126/72 (90) 92 Room Air Lab Results: Results Past 24 Hours Test 11/02/16 13:46 11/03/16 06:02 Range/Units Total Creatine Kinase 68 26-192 U/L Creatine Kinase MB < 0.5 0.5-3.6 ng/ml Creatine Kinase MB Ratio 0-3.0 Troponin I < 0.015 0-0.045 ng/ml Sodium Level 142 136-145 mmol/L Potassium Level 4.0 3.5-5.1 mmol/L Chloride Level 109 98-107 mmol/L Carbon Dioxide Level 28 21-32 mmol/L Anion Gap 5.0 3-11 mmol/L Blood Urea Nitrogen 23 7-18 mg/dl Creatinine 0.97 0.60-1.20 mg/dl Est Creatinine Clear Calc Drug Dose 49.5 ml/min Estimated GFR () 63.9 Estimated GFR (Non- 55.2 BUN/Creatinine Ratio 24.1 10-20 Random Glucose 84 70-99 mg/dl Calcium Level 8.5 8.5-10.1 mg/dl
[2016-11-03 11:16] VITALS: BP 151/73; PULSE 57; TEMP 36.6; O2SAT 96
[2016-11-03] MEDS ORDERED: TAMO20TA47 PO (13:52)
[2016-11-03] MEDS ORDERED: METO50TA16 PO (13:52)
[2016-11-03] MEDS ORDERED: ESCI1TAB9 PO (13:52)
[2016-11-03] MEDS ORDERED: SPIR50TA PO (13:52)
--- NOTE | 2016-11-03 13:57 | Discharge Instructions ---
Discharge Instructions Date of Service Nov 03, 2016. Admission Reason for Admission: Dizzy Spells Discharge Discharge Diagnosis / Problem: dizzy/vertigo Discharge Goals Goal(s): Decrease discomfort, Improve function Activity Recommendations Activity Limitations: resume your previous activity . Instructions / Follow-Up Instructions / Follow-Up FOLLOWUP WITH FAMILY DOCTOR Luzma Conner ON AT 10:15AM. BLOOD PRESSURE AND HEART RATE FOLLOWUP WITH FAMILY DOCTOR. ENT REFERRAL PER FAMILY DOCTOR FOR DIZZINESS/VERTIGO. STOPPED MEDICATIONS: METOPROLOL(LOPRESSOR) 50MG BID ALDACTAZIDE(HCTZ/SPIRONOLACTONE/) 25/25MG DAILY. POTASSIUM 10MEQ PO TWICE DAILY. FURTHER ADJUSTMENTS OF MEDICATION PER FAMILY DOCTOR BASED ON HEART RATES AND BLOOD PRESSURE. LAB: BMP IN 4-5 DAYS AND FOLLOW RESULTS WITH FAMILY DOCTOR WERE ARE STOPPING POTASSIUM SUPPLEMENTS AND STOPPING ALDACTAZIDE TO DISCUSS WITH FAMILY DOCTOR ABOUT HOME SAFETY AND CASE MANAGEMENT HELP Current Hospital Diet Patient's current hospital diet: AHA Diet (Heart Healthy) Discharge Diet Recommended Diet: AHA Diet (Heart Healthy) Pending Studies Studies pending at discharge: no Medical Emergencies . Who to Call and When: Medical Emergencies: If at any time you feel your situation is an emergency, please call 911 immediately. . Non-Emergent Contact Non-Emergency issues call your: Primary Care Provider . . "Provider Documentation" section prepared by Heriberto Rodriguez. . VTE Core Measure Inpt VTE Proph given/why not?: Unfractionated heparin SQ
[2016-11-03 14:04] VITALS: BP 151/73; PULSE 57; TEMP 36.6; O2SAT 96
--- NOTE | 2016-11-03 15:18 | Discharge Summary ---
Discharge Summary Date of Service Nov 03, 2016. Discharge Summary Admission Date: Nov 01, 2016 at 21:59 Discharge Date: Nov 03, 2016 Discharge Disposition: Home with services Principal Diagnosis: dizzy/vertigo Secondary Diagnoses/Problems: Breast CA on remission, depression , anxiety disorder . GERD, hx of BPPV Procedures: ct head: 1. No acute intracranial pathology. cxr: 1. No acute cardiopulmonary disease. carotid us: No hemodynamically significant stenosis seen within the carotid arteries. echo: There is borderline asymmetric left ventricular hypertrophy. * Left ventricular systolic function is normal. * Grade I diastolic dysfunction, (abnormal relaxation pattern). * The left atrium is mildly dilated. * Right ventricular systolic pressure is normal. Medication Reconciliation Continued Medications: Aspirin (Aspirin) 81 Mg Tab 81 MG PO DAILY for 90 Days, #90 TAB 3 Refills Coconut Oil (Coconut Oil Organic) 1,000 Mg Cap 1000 MG PO DAILY Cyanocobalamin (Vitamin B-12) 500 Mcg Tab 1000 MCG PO BID, 0 Refills Escitalopram Oxalate (Lexapro) 10 Mg Tab 1 TAB PO DAILY for 30 Days, #30 TAB 1 Refill Meclizine Hcl (Meclizine Hcl) 25 Mg Tab 1 TAB PO QID PRN for Dizziness or Vertigo for 10 Days, #40 TAB Tamoxifen (Nolvadex) 20 Mg Tab 20 MG PO DAILY, #30 TAB Verapamil (Calan) 120 Mg Tab 120 MG PO BID Discontinued Medications: Hctz/Spironolactone 25MG/25MG (Aldactazide 25MG/25MG) 1 Tab Tab 1 TAB PO DAILY, #30 TAB Metoprolol Tartrate (Lopressor) (Lopressor) 50 Mg Tab 50 MG PO BID, #60 TAB Potassium Chloride (Micro-K Ext Rel) 10 Meq Capcr 10 MEQ PO BID, CAP Admission Information HPI (per Admitting provider): This is a 81 yo F with past medical hx o Breast CA on remission, depression , anxiety disorder . GERD, hx of BPPV presents to ED with complain of worsening of dizzy spell Pt has chronic vertigo , was diagnosed as BPPV in prior office visit with Family physician , takes Meclizine as needed her symptoms of dizzy spell worse with movement has been off an on for past few months last 2 days -symptom got worse and persistent , minimum activity , head movement making her dizzy and lightheaded , feels room is spinning , associated with nausea and lightheadedness, feels off balance , did not had a fall or syncope no complain of visual disturbance , no headache , no weakness or paresthesia has been taking Meclizine with no benefit pt lives by herself , family was very concerned for her being off balance and fall risk in the ED -CT head w/out contrast negative for CVA Vitals , labs remains stable EKG /Cardiac monitoring no arrhythmia noted pt will be observed in Tele monitoring continue to provide supportive care PT consulted to do Giovanna Maneuver in AM Physical Exam (per Admitting): General Appearance: no apparent distress Head: normocephalic, atraumatic Eyes: + pertinent finding (mild nystagmus on lateral gaze ) Neck: thyroid normal, no JVD, no carotid bruits, trachea midline Respiratory/Chest: chest non-tender, lungs clear, normal breath sounds, no respiratory distress Cardiovascular: regular rate, rhythm, no JVD Abdomen/GI: non tender, soft Extremities/Musculoskelatal: normal inspection, no calf tenderness, normal capillary refill, no pedal edema, normal range of motion Neurologic/Psych: no motor/sensory deficits, alert, oriented x 3 Skin: normal color, warm/dry, no rash Lymphatic: no adenopathy Hospital Course DIZZY SPELL : clinically appears to be due to BPPV ( benign Paroxysmal positional Vertigo ) improving ct head and carotid Doppler unremarkable Echo: There is borderline asymmetric left ventricular hypertrophy. * Left ventricular systolic function is normal. * Grade I diastolic dysfunction, (abnormal relaxation pattern). * The left atrium is mildly dilated. * Right ventricular systolic pressure is normal. PT for Giovanna maneuver ANXIETY DISORDER ; on Lexapro 10 mg daily will monitor HTN : On Verapamil somewhat bradycardia cut back on dose as per pcp will monitor GERD : on PPI FULL CODE DVT PROPHYLAXIS : Sub q heparin DISPOSITION monitor in tele pt/ot possible d/c today Total time spent on discharge = 35 minutes This includes examination of the patient, discharge planning, medication reconciliation, and communication with other providers. Discharge Instructions Discharge Instructions Date of Service Nov 03, 2016. Admission Reason for Admission: Dizzy Spells Discharge Discharge Diagnosis / Problem: dizzy/vertigo Discharge Goals Goal(s): Decrease discomfort, Improve function Activity Recommendations Activity Limitations: resume your previous activity . Instructions / Follow-Up Instructions / Follow-Up FOLLOWUP WITH FAMILY DOCTOR Luzma Conner ON AT 10:15AM. BLOOD PRESSURE AND HEART RATE FOLLOWUP WITH FAMILY DOCTOR. ENT REFERRAL PER FAMILY DOCTOR FOR DIZZINESS/VERTIGO. STOPPED MEDICATIONS: METOPROLOL(LOPRESSOR) 50MG BID ALDACTAZIDE(HCTZ/SPIRONOLACTONE/) 25/25MG DAILY. POTASSIUM 10MEQ PO TWICE DAILY. FURTHER ADJUSTMENTS OF MEDICATION PER FAMILY DOCTOR BASED ON HEART RATES AND BLOOD PRESSURE. LAB: BMP IN 4-5 DAYS AND FOLLOW RESULTS WITH FAMILY DOCTOR WERE ARE STOPPING POTASSIUM SUPPLEMENTS AND STOPPING ALDACTAZIDE TO DISCUSS WITH FAMILY DOCTOR ABOUT HOME SAFETY AND CASE MANAGEMENT HELP Current Hospital Diet Patient's current hospital diet: AHA Diet (Heart Healthy) Discharge Diet Recommended Diet: AHA Diet (Heart Healthy) Pending Studies Studies pending at discharge: no Medical Emergencies . Who to Call and When: Medical Emergencies: If at any time you feel your situation is an emergency, please call 911 immediately. . Non-Emergent Contact Non-Emergency issues call your: Primary Care Provider . . "Provider Documentation" section prepared by Heriberto Rodriguez. . VTE Core Measure Inpt VTE Proph given/why not?: Unfractionated heparin SQ
--- NOTE | 2016-11-11 10:22 | EDITING REQUIRED CODING QUERY ---
CQSUPPORTING DIAGNOSIS NEEDED A supporting diagnosis is required for the test/procedure performed on this patient in order for us to be reimbursed by the patient's insurance. Please provide a supporting diagnosis for the following test/procedure listed below next to the test name along with your signature. *If there is no additional diagnosis for this patient that would support the following test/procedure please document that below next to the test/procedure. Test(s)/Procedure(s) that require a supporting diagnosis: Dizzy spell , carotid duplex ordered to R/o carotid stenosis causing symptom DOS 11/01/16 NON-INVASIVE CEREBROVASCULAR ARTERY STUDY Provider Signature: Angelique Haines Date: 11/13/16 Thank you Lelia Ortega Health Information Management Once completed, please kindly fax back to [phone] For questions please call [phone]
== END 2016-11-03 15:39 | disposition home or self-care (01) ==
LOC: EDBD 18:17 → C.EDC 18:18 → C.2T 21:59 → ENRESERV 22:11
PROVIDERS: ADMIT Hospitalist; ATTEND Internal Medicine
DX: R42 Dizziness and giddiness (principal); R07.9 Chest pain, unspecified; F32.9 Major depressive disorder, single episode, unspecified; K21.9 Gastro-esophageal reflux disease without esophagitis; Z85.3 Personal history of malignant neoplasm of breast; Z79.82 Long term (current) use of aspirin; Z90.49 Acquired absence of other specified parts of digestive tract; Z90.11 Acquired absence of right breast and nipple; R51 Headache

== ENCOUNTER 2017-07-24 22:59 | Observation (INO) | payer OTHER ==
[~2017-07-24] VITALS: Ht 172.7 cm; Wt 78.9 kg
[~2017-07-24 22:59] MED LIST changes: -ANT25 PO; -ASPEC81 PO; +ASPI1TAB83 PO; +COCO1CAP PO; +ESCI1TAB9 PO; -IBUP-103 PO; +MECL1TAB42 PO; -OMEG10007 PO; -POTA10CA28 PO; -TAMO20TA47 PO; -[UNRECOGNIZED DRUG - CODE] PO
[2017-07-24] MEDS ORDERED: ONDANSETRON INJ 2 MG/ML 2 ML VIAL IV STA (23:18)
[2017-07-24] MEDS ORDERED: MoRPHine SULFATE 4 MG/ML 1 ML CARP\\VIAL IV STA (23:18)
--- NOTE | 2017-07-24 23:21 | EMERGENCY ROOM VISIT NOTE ---
History Report prepared by Gary: Josi Chowdary Under the Supervision of: Dr. Emery Melvin M.D. First contact with patient: 23:09 Chief Complaint: DIZZY Stated Complaint: PAIN UP THE BACK OF NECK, VOMIT, DIZZY Nursing Triage Summary: Patient reports nausea, vomiting, diarrhea, dizziness and lightheadedness since this morning. Patient got dizzy and had a fall at 1600. Symptoms continued tonight and patient notes 10/10 pain in head and neck at this time. History of Present Illness The patient is a 82 year old female who presents to the Emergency Room with complaints of persistent dizziness that started 7 hours ago. The patient rates her pain a 10/10 in severity. The patient reports she fell around 4pm this afternoon because she was dizzy. She notes "I went to turn and I lost my balance because I was dizzy". She states she fell into a chair. The patient reports she has Parkinson's. She notes it is normal for her to get dizzy. The patient also vomited today. She reports she has pain in the back of her neck that radiates to her head and back. She notes the pain started 3-4 hours after her fall. She denies taking any medication for her pain. The patient reports she is not on blood thinners. She is prescribed Lasix and Verapamil but notes she has not been taking them anymore. The patient states she lives at home by herself. Source of History: patient Onset: 7 hours ago Position: other (dizzy) Symptom Intensity: 10/10 Timing: other (persistent) Associated Symptoms: + headache, + neck pain, + vomiting, + back pain Review of Systems See HPI for pertinent positives & negatives. A total of 10 systems reviewed and were otherwise negative. Past Medical & Surgical Medical Problems: (1) Atrial Fibrillation (2) Cardiac Dysrhythmias Nec (3) Diaphragmatic Hernia (4) Diverticulosis Colon (W/O Ment Of Hemorrhage) (5) Dizzy spells (6) Hx Of Breast Malignancy (7) Hyperlipidemia Nec/Nos (8) Hypertension Nos (9) Irritable Bowel Syndrome (10) Parkinsons disease Surgical Problems: (1) History of cholecystectomy (2) History of right mastectomy Family History Patient reports no known family medical history. Social History Smoking Status: Never Smoker Alcohol Use: occasionally Drug Use: none Housing Status: lives alone Occupation Status: retired Current/Historical Medications Scheduled Aspirin (Aspirin), 81 MG PO DAILY Coconut Oil (Coconut Oil Organic), 1,000 MG PO DAILY Cyanocobalamin (Vitamin B-12), 500 MCG PO BID Ergocalciferol (Vitamin D 96670 Unit), 50,000 UNIT PO 2XWK Escitalopram Oxalate (Lexapro), 5 MG PO DAILY Verapamil (Calan), 120 MG PO BID Scheduled PRN Furosemide (Lasix), 20 MG PO DAILY PRN for SWELLING IN LEGS Meclizine Hcl (Meclizine Hcl), 1 TAB PO QID PRN for Dizziness or Vertigo Simethicone (Mylicon), 80 MG PO QID PRN for GAS DISCOMFORT Allergies Coded Allergies: Acetaminophen (Verified Allergy, Unknown, unknown, 07/25/17) Adhesives (Verified Allergy, Unknown, rash, 07/25/17) Codeine (Verified Allergy, Unknown, 07/25/17) Oxycodone (Verified Allergy, Unknown, unknown, 07/25/17) Penicillins (Verified Allergy, Unknown, 07/25/17) AMOXIL Physical Exam Vital Signs Date Time Temp Pulse Resp B/P (MAP) Pulse Ox O2 Delivery O2 Flow Rate FiO2 07/25/17 01:51 60 18 144/60 97 Room Air 07/25/17 00:05 68 18 178/63 97 Room Air 07/24/17 23:33 85 188/79 88 190/61 07/24/17 23:23 98 Room Air 07/24/17 23:10 68 07/24/17 23:01 36.7 67 19 197/75 97 Room Air Physical Exam GENERAL: Awake, alert, well-appearing, in no acute distress HENT: Normocephalic, atraumatic. Oropharynx unremarkable. EYES: Normal conjunctiva. Sclera non-icteric. NECK: Supple. No nuchal rigidity. FROM. No JVD. Cervical collar in place. Tenderness over C1. RESPIRATORY: Clear to auscultation. CARDIAC: Regular rate, normal rhythm. Extremities warm and well perfused. Pulses equal. ABDOMEN: Soft, non-distended. No tenderness to palpation. No rebound or guarding. No masses. RECTAL: Deferred. MUSCULOSKELETAL: Chest examination reveals no tenderness. The back is symmetrical on inspection without obvious abnormality. There is no CVA tenderness to palpation. No joint edema. LOWER EXTREMITIES: Calves are equal size bilaterally and non-tender. No edema. No discoloration. NEURO: Normal sensorium. No sensory or motor deficits noted. SKIN: No rash or jaundice noted. Medical Decision & Procedures ER Provider Diagnostic Interpretation: 1 VIEW CHEST X-RAY interpreted by me. No evidence of pneumonia, congestion, or pneumothorax. CT HEAD: NO ICH, extra axial fluid, mass effect or edema. Ventricles are similar in appearance from 11/01/2016. No evidence of acute cortical stroke. Periventricular small vessel ischemic change. Visualized sinuses and mastoid air cells are clear. CT C SPINE: No evidence of fracture or malalignment. Multilevel disc spondylosis and facet hypertrophic changes incidentally noted. Lung apices without pneumothorax. CT T SPINE: No evidence of fracture or malalignment. Multilevel degenerative changes with hypertrophic osteophyte formation anteriorly incidentally noted. No paraspinal soft tissue abnormality. There is a soft tissue juxtapleural pulmonary nodule at the right lung base medially measuring 9 x 13 x 12 mm (series 2; image 399). This may represent rounded atelectasis. However, short-term interval follow-up is recommended to exclude an underlying parenchymal mass. Laboratory Results 07/24/17 23:15 Red Blood Count 5.08, Mean Corpuscular Volume 89.6, Mean Corpuscular Hemoglobin 30.5, Mean Corpuscular Hemoglobin Concent 34.1, Mean Platelet Volume 9.5, Neutrophils (%) (Auto) 68.9, Lymphocytes (%) (Auto) 22.7, Monocytes (%) (Auto) 7.2, Eosinophils (%) (Auto) 0.6, Basophils (%) (Auto) 0.3, Neutrophils # (Auto) 4.52, Lymphocytes # (Auto) 1.49, Monocytes # (Auto) 0.47, Eosinophils # (Auto) 0.04, Basophils # (Auto) 0.02 07/24/17 23:15 Test 07/24/17 23:15 White Blood Count 6.56 K/uL (4.8-10.8) Red Blood Count 5.08 M/uL (4.2-5.4) Hemoglobin 15.5 g/dL (12.0-16.0) Hematocrit 45.5 % (37-47) Mean Corpuscular Volume 89.6 fL (80-100) Mean Corpuscular Hemoglobin 30.5 pg (25-34) Mean Corpuscular Hemoglobin Concent 34.1 g/dl (32-36) Platelet Count 184 K/uL (130-400) Mean Platelet Volume 9.5 fL (7.4-10.4) Neutrophils (%) (Auto) 68.9 % Lymphocytes (%) (Auto) 22.7 % Monocytes (%) (Auto) 7.2 % Eosinophils (%) (Auto) 0.6 % Basophils (%) (Auto) 0.3 % Neutrophils # (Auto) 4.52 K/uL (1.4-6.5) Lymphocytes # (Auto) 1.49 K/uL (1.2-3.4) Monocytes # (Auto) 0.47 K/uL (0.11-0.59) Eosinophils # (Auto) 0.04 K/uL (0-0.5) Basophils # (Auto) 0.02 K/uL (0-0.2) RDW Standard Deviation 46.6 fL (36.4-46.3) RDW Coefficient of Variation 14.3 % (11.5-14.5) Immature Granulocyte % (Auto) 0.3 % Immature Granulocyte # (Auto) 0.02 K/uL (0.00-0.02) Anion Gap 10.0 mmol/L (3-11) Est Creatinine Clear Calc Drug Dose 48.0 ml/min Estimated GFR () 59.7 Estimated GFR (Non- 51.5 BUN/Creatinine Ratio 14.1 (10-20) Calcium Level 9.0 mg/dl (8.5-10.1) Total Bilirubin 0.5 mg/dl (0.2-1) Direct Bilirubin 0.1 mg/dl (0-0.2) Aspartate Amino Transf (AST/SGOT) 66 U/L (15-37) Alanine Aminotransferase (ALT/SGPT) 70 U/L (12-78) Alkaline Phosphatase 86 U/L (45-117) Total Creatine Kinase 104 U/L (26-192) Creatine Kinase MB 1.0 ng/ml (0.5-3.6) Creatine Kinase MB Ratio 1.0 (0-3.0) Troponin I < 0.015 ng/ml (0-0.045) Pro-B-Type Natriuretic Peptide 207 pg/ml (0-1800) Total Protein 7.9 gm/dl (6.4-8.2) Albumin 3.8 gm/dl (3.4-5.0) Thyroid Stimulating Hormone (TSH) 4.290 uIu/ml (0.300-4.500) Labs reviewed by ED physician. Medications Administered Medications (Trade) Dose Ordered Sig/Scott Route Start Time Stop Time Status Last Admin Dose Admin Morphine Sulfate (MoRPHine SULFATE INJ) 4 mg NOW STAT IV 07/24/17 23:18 07/24/17 23:21 DC 07/24/17 23:31 4 MG Ondansetron HCl (Zofran Inj) 4 mg NOW STAT IV 07/24/17 23:18 07/24/17 23:21 DC 07/24/17 23:30 4 MG Meclizine HCl (Antivert Tab) 25 mg NOW STAT PO 07/24/17 23:42 07/24/17 23:43 DC 07/24/17 23:57 25 MG Metoclopramide HCl (Reglan Inj) 10 mg NOW STAT IV 07/25/17 00:19 07/25/17 00:21 DC 07/25/17 00:34 10 MG Lorazepam (Ativan Inj) 0.25 mg NOW STAT IV 07/25/17 00:22 07/25/17 00:23 DC 07/25/17 00:34 0.25 MG ECG Per My Interpretation Indication: other (dizzy) Rate (beats per minute): 66 Rhythm: normal sinus Findings: other (No ST elevation or depression) ED Course 2310: Past medical records reviewed. The patient was evaluated in room A10. A complete history and physical examination was performed. 2318: Zofran Inj 4 mg IV, Morphine Sulfate 4 mg IV. 2342: Meclizine HCl 25 mg PO. 0019: Reglan Inj 10 mg IV, Morphine Sulfate 4 mg IV. 0022: Lorazepam 0.25 mg IV. 0025: I discussed the patient's case with Gavino Carlson, he has agreed to evaluate the patient for further management and care. Medical Decision Differential diagnosis: Etiologies such as benign positional vertigo, dehydration, hypovolemia, anemia, tumor, infection, hypoglycemia, electrolyte abnormalities, cardiac sources, intracerebral event, toxicologic, neurologic, as well as others were entertained. This is an 82-year-old female who lives at home who presents emergency department acutely confused. Patient is unable to tell me what happened today although it sounds as if she fell and hit her head. She is complaining of pain to the back of her neck. She is found to be hypertensive here in the emergency department. The patient is unable to relate what medication she takes. She was given morphine and Zofran here in the emergency department. Repeat examination revealed improvement the patient's symptoms. Patient did continue to vomit while she was here in the emergency department. I therefore did discuss her case with the hospitalist service who agreed to admit the patient. Patient and family were in agreement with treatment plan. Medication Reconcilliation Current Medication List: was personally reviewed by me Blood Pressure Screening Patient's blood pressure: Elevated blood pressure (monitor by hospitalist) Consults Time Called: 002 Consulting Physician: Gavino Carlson Returned Call: 002 I discussed the patient's case with Gavino Carlson, he has agreed to evaluate the patient for further management and care. Impression Primary Impression: Dizziness Scribe Attestation The scribe's documentation has been prepared under my direction and personally reviewed by me in its entirety. I confirm that the note above accurately reflects all work, treatment, procedures, and medical decision making performed by me. Departure Information Dispostion Being Evaluated By Hospitalist Referrals Luzma Brooke D.O. (PCP) Patient Instructions [facility]
[2017-07-24 23:28] LABS: BASO % 0.3 %; BASO ABS # 0.02 K/uL (0-0.2); EOS % 0.6 %; EOS ABS # 0.04 K/uL (0-0.5); HEMATOCRIT 45.5 % (37-47); HEMOGLOBIN 15.5 g/dL (12.0-16.0); IG# 0.02 K/uL (0.00-0.02); LYMPH % 22.7 %; LYMPH ABS # 1.49 K/uL (1.2-3.4); MEAN CELL VOLUME 89.6 fL (80-100); MEAN CORPUSCULAR HEMOGLOBIN 30.5 pg (25-34); MEAN CORPUSCULAR HGB CONC 34.1 g/dl (32-36); MEAN PLATELET VOLUME 9.5 fL (7.4-10.4); MONO % 7.2 %; MONO ABS # 0.47 K/uL (0.11-0.59); NEUT % 68.9 %; NEUT ABS # 4.52 K/uL (1.4-6.5); PLATELET COUNT 184 K/uL (130-400); RED CELL DISTRIBUTION WIDTH CV 14.3 % (11.5-14.5); RED CELL DISTRIBUTION WIDTH SD 46.6 fL (36.4-46.3); WHITE BLOOD COUNT 6.56 K/uL (4.8-10.8)
[2017-07-24] MEDS ORDERED: MECLIZINE HCL 25 MG TAB PO STA (23:42)
[2017-07-24 23:59] LABS: ALBUMIN 3.8 gm/dl (3.4-5.0); ALKALINE PHOSPHATASE 86 U/L (45-117); ALT/SGPT 70 U/L (12-78); AST/SGOT 66 U/L (15-37); BLOOD UREA NITROGEN 14 mg/dl (7-18); CARBON DIOXIDE 28 mmol/L (21-32); CREATININE 1.02 mg/dl (0.60-1.20); GLUCOSE 125 mg/dl (70-99); POTASSIUM 3.8 mmol/L (3.5-5.1); SODIUM 138 mmol/L (136-145); TOTAL PROTEIN 7.9 gm/dl (6.4-8.2)
[2017-07-25] VITALS (7 sets, daily range): BP systolic 127–155; BP diastolic 66–80; PULSE 53–68; TEMP 36.1–36.8; O2SAT 91–93; Ht 172.7 cm; Wt 78.9 kg
[2017-07-25] MEDS ORDERED: METOCLOPRAMIDE HCL INJ 5 MG/ML 2 ML VIAL IV STA (00:19)
[2017-07-25] MEDS ORDERED: MoRPHine SULFATE 4 MG/ML 1 ML CARP\\VIAL IV STA (00:19)
[2017-07-25] MEDS ORDERED: LORAZEPAM 2 MG/ML 1 ML VIAL IV STA (00:22)
[2017-07-25] MEDS ORDERED: SIME80CH13 PO (00:34)
[2017-07-25] MEDS ORDERED: FURO-85 PO (00:34)
[2017-07-25] MEDS ORDERED: ESCI1TAB6 PO (00:34)
[2017-07-25] MEDS ORDERED: ERGO500037 PO (00:34)
[2017-07-25] MEDS ORDERED: VERAPAMIL HCL 40 MG TAB PO STA (01:57)
[2017-07-25] MEDS ORDERED: NITROGLYCERIN 0.4 MG SL PER TAB CHARGE SL PRN (03:00)
[2017-07-25] MEDS ORDERED: PROCHLORPERAZINE INJ 5 MG in SYRINGE 4 ML IV PRN (03:00)
[2017-07-25] MEDS ORDERED: HYDROmorphone INJ 0.5 MG/0.5 ML SYR IV PRN (03:00)
[2017-07-25] MEDS ORDERED: SIMETHICONE 80 MG CHEW PO PRN (03:00)
[2017-07-25] MEDS ORDERED: MECLIZINE HCL 12.5 MG TAB PO PRN (03:00)
[2017-07-25] MEDS ORDERED: TRAMADOL HCL 50 MG TAB PO PRN (03:00)
[2017-07-25] MEDS ORDERED: ACETAMINOPHEN 325 MG TAB PO PRN (03:00)
[2017-07-25] MEDS ORDERED: IV FLUIDS COMPLETED PRN (03:45)
[2017-07-25] MEDS ORDERED: OPTIRAY 320 IV PRN (03:45)
[2017-07-25] MEDS ORDERED: NSS + 20MEQ KCL 1000ML 1,000 ML IV ONE (04:00)
--- NOTE | 2017-07-25 06:26 | DIAGNOSTIC IMAGING REPORT ---
HEAD CT NONCONTRAST CT DOSE: HISTORY: Headache. Fall. TECHNIQUE: Multiaxial CT images of the head were performed without the use of intravenous contrast. Automated exposure control was utilized for this study. A dose lowering technique was utilized adhering to the principles of ALARA. Comparison: Head CT 11/01/2016. Findings: The paranasal sinuses and mastoid air cells are clear. The calvarium and skull base are intact. There is no mass, hematoma, midline shift, acute infarct. White matter hypodensity is nonspecific but suggestive of microvascular ischemic change. The ventricles and sulci demonstrate mild age-related involutional changes. Impression: No acute intracranial abnormality. Electronically signed by: Jah Colon M.D. 07/25/2017 6:25 AM Dictated Date/Time: 07/25/2017 6:23 AM
--- NOTE | 2017-07-25 06:35 | DIAGNOSTIC IMAGING REPORT ---
CERVICAL AND THORACIC SPINE CT CT DOSE: 1003.74 mGy.cm (accession [id number]), 642.97 mGy.cm (accession [id number]) HISTORY: Neck pain. Fall. Back pain. Pt c/o T1 pain TECHNIQUE: Multiaxial CT images of the cervical spine were performed and reformatted in the sagittal and coronal plane without the use of contrast. A dose lowering technique was utilized adhering to the principles of ALARA. COMPARISON: None. FINDINGS: A 9 mm left thyroid nodule. Severe disc space narrowing at C2-C3 and C5-C6 and C6-C7. Moderate facet degenerative changes within the cervical spine. No fracture or subluxation within the cervical or thoracic spine. Prevertebral soft tissues and the C1-C2 interval are intact. Mild degenerative disc disease throughout the thoracic spine. There is a 16 mm round nodule within the base of the right lower lobe. There is also a 5 mm nodule within the right lower lobe on image 307. Calcified granuloma within the left lower lobe. IMPRESSION: 1. No fracture or subluxation within the cervical or thoracic spine. 2. A 16 mm nodule within the right lower lobe. A primary bronchogenic malignancy is the diagnosis of exclusion. Recommend ulnar consultation follow-up. 2. There is also a 5 mm indeterminate pulmonary nodule within the right lower lobe. Electronically signed by: Jah Colon M.D. 07/25/2017 6:34 AM Dictated Date/Time: 07/25/2017 6:25 AM
--- NOTE | 2017-07-25 06:35 | DIAGNOSTIC IMAGING REPORT ---
CERVICAL AND THORACIC SPINE CT CT DOSE: 1003.74 mGy.cm (accession [id number]), 642.97 mGy.cm (accession [id number]) HISTORY: Neck pain. Fall. Back pain. Pt c/o T1 pain TECHNIQUE: Multiaxial CT images of the cervical spine were performed and reformatted in the sagittal and coronal plane without the use of contrast. A dose lowering technique was utilized adhering to the principles of ALARA. COMPARISON: None. FINDINGS: A 9 mm left thyroid nodule. Severe disc space narrowing at C2-C3 and C5-C6 and C6-C7. Moderate facet degenerative changes within the cervical spine. No fracture or subluxation within the cervical or thoracic spine. Prevertebral soft tissues and the C1-C2 interval are intact. Mild degenerative disc disease throughout the thoracic spine. There is a 16 mm round nodule within the base of the right lower lobe. There is also a 5 mm nodule within the right lower lobe on image 307. Calcified granuloma within the left lower lobe. IMPRESSION: 1. No fracture or subluxation within the cervical or thoracic spine. 2. A 16 mm nodule within the right lower lobe. A primary bronchogenic malignancy is the diagnosis of exclusion. Recommend ulnar consultation follow-up. 2. There is also a 5 mm indeterminate pulmonary nodule within the right lower lobe. Electronically signed by: Jah Colon M.D. 07/25/2017 6:34 AM Dictated Date/Time: 07/25/2017 6:25 AM
--- NOTE | 2017-07-25 07:06 | DIAGNOSTIC IMAGING REPORT ---
CHEST ONE VIEW PORTABLE HISTORY: Pt c/o dizziness COMPARISON: Chest 11/01/2016. FINDINGS: The heart is normal in size. No pleural effusions. No pneumothorax. Bibasilar linear densities favor subsegmental atelectasis. The lungs are otherwise clear. No evidence for pulmonary edema. IMPRESSION: Bibasilar densities. This is nonspecific but favors atelectasis. A pneumonia cannot be entirely excluded. Electronically signed by: Jah Colon M.D. 07/25/2017 7:05 AM Dictated Date/Time: 07/25/2017 7:03 AM
[2017-07-25 07:18] LABS: BASO % 0.4 %; BASO ABS # 0.03 K/uL (0-0.2); EOS % 0.3 %; EOS ABS # 0.02 K/uL (0-0.5); HEMATOCRIT 41.4 % (37-47); IG# 0.02 K/uL (0.00-0.02); LYMPH % 30.8 %; LYMPH ABS # 2.15 K/uL (1.2-3.4); MEAN CORPUSCULAR HEMOGLOBIN 30.4 pg (25-34); MEAN CORPUSCULAR HGB CONC 33.8 g/dl (32-36); MEAN PLATELET VOLUME 9.5 fL (7.4-10.4); MONO % 6.6 %; MONO ABS # 0.46 K/uL (0.11-0.59); NEUT % 61.6 %; PLATELET COUNT 178 K/uL (130-400); RED CELL DISTRIBUTION WIDTH CV 14.2 % (11.5-14.5); WHITE BLOOD COUNT 6.98 K/uL (4.8-10.8)
[2017-07-25 07:25] LABS: INR 1.1 (0.9-1.1)
[2017-07-25 07:52] LABS: BLOOD UREA NITROGEN 14 mg/dl (7-18); CALCIUM 8.5 mg/dl (8.5-10.1); CARBON DIOXIDE 32 mmol/L (21-32); CREATININE 0.83 mg/dl (0.60-1.20); GLUCOSE 109 mg/dl (70-99); POTASSIUM 3.9 mmol/L (3.5-5.1); SODIUM 138 mmol/L (136-145)
--- NOTE | 2017-07-25 08:22 | DIAGNOSTIC IMAGING REPORT ---
ABDOMEN AND PELVIS CT WITH IV CONTRAST CT DOSE: 398.31 mGy.cm HISTORY: Generalized abdominal pain. TECHNIQUE: Multiaxial CT images of the abdomen and pelvis were performed following the use of intravenous contrast. A dose lowering technique was utilized adhering to the principles of ALARA. COMPARISON STUDY: Abdomen and pelvis CT 05/12/2012. FINDINGS: Interval development of patchy bibasilar airspace opacities. This is concerning for a pneumonia. This may be due to aspiration since this is new from the prior study. A 1.5 cm nodule within the right lower lobe is again noted. Small hiatus hernia. No pneumoperitoneum. No pneumatosis. Hepatic steatosis. No change in the bile duct dilatation compared to the 2013 examination. Cystectomy. The pancreas, adrenal glands, spleen, and kidneys enhance normally. No hydronephrosis. Moderate calcified plaque within the normal caliber abdominal aorta. Normal bladder. The uterus is surgically absent. Colonic diverticulosis. Normal bladder. No bowel wall thickening or obstruction. IMPRESSION: 1. Interval development of bilateral lower lobe airspace opacities which likely represents a pneumonia, possibly secondary to aspiration. 2. There is again noted a 1.5 cm nodule within the right lower lobe. Neoplasm is the diagnosis of exclusion. Pulmonary consultation recommended. 3. No bowel wall thickening or obstruction. 4. Cholecystectomy. No change in the bile duct dilatation. Electronically signed by: Jah Colon M.D. 07/25/2017 8:20 AM Dictated Date/Time: 07/25/2017 8:13 AM
[2017-07-25] MEDS ORDERED: VERAPAMIL HCL 120 MG TABCR PO SCH (09:00)
[2017-07-25] MEDS ORDERED: ENOXAPARIN 40 MG/0.4 ML SYR SC SCH (09:00)
[2017-07-25] MEDS ORDERED: ASPIRIN 81 MG ECTAB PO SCH (09:00)
[2017-07-25] MEDS ORDERED: ESCITALOPRAM OXALATE 10 MG TAB PO SCH (09:00)
--- NOTE | 2017-07-25 10:10 | HISTORY & PHYSICAL EXAMINATION ---
DATE OF ADMISSION: 07/25/2017 PRIMARY CARE DOCTOR: Dr. Brooke CHIEF COMPLAINT:. Dizziness, vomiting, headache, neck pain. HISTORY OF PRESENT ILLNESS: History obtained from patient, granddaughter, and records. Medical history is significant for atrial fibrillation, not on anticoagulation, hypertension, Parkinson's disease, breast cancer R sp hormonal therapy. Recent confinement last October 2016 for dizzy spells and vertigo. As per the granddaughter yesterday noted to be dizzy, spinning. No chest pain, no shortness of breath. Some achy neck pain which she gets from [id number]. No cough, no trauma. Achy headache symptoms, some nausea. No emesis. Generalized abdominal discomfort w/ loose stools also. Patient does not check her blood pressure at home. Patient brought her to the Emergency Room. MEDICAL HISTORY: As above. SURGERIES: She had cholecystectomy, right mastectomy, appendectomy, tubal ligation, cholecystectomy, skin tumor surgery, total abdominal hysterectomy, hemorrhoidectomy. HOME MEDICATIONS: Aspirin, coconut oil, cyanocobalamin, escitalopram, furosemide as needed, meclizine, simethicone, verapamil. ALLERGIES: ALLERGY TO ADHESIVES, CARDIZEM, MORPHINE. FAMILY HISTORY: Hypertension. PERSONAL AND SOCIAL HISTORY: non-smoker. No chronic intake of alcoholic beverages. 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 Lives by self. REVIEW OF SYSTEMS: As per HPI, all 10 systems reviewed. All other ROS negative. PHYSICAL EXAMINATION: VITAL SIGNS: Blood pressure was noted to be 190/90, pulse rate 68, RR 18, temperature 36.5, sats 97 on room air. GENERAL: Noted to be comfortable, pleasant, in no respiratory distress. SKIN: Normal color, warm. HEENT: Pale palpebral conjunctivae. No ptosis. Dry mucosa. Bespectacled. NECK: Supple, nontender. CHEST: Decreased effort. No tenderness. HEART: Regular rate and rhythm, no murmur. ABDOMEN: Some distention, nontender. EXTREMITIES: Minimal LE edema. No tenderness, no other gross deformities. NEUROLOGICAL EXAMINATION: Coherent. No gross focality. Gait and stance not assessed. LABORATORY DATA: Hemoglobin was noted to be 15.5, hematocrit 35.5, white cell count 6.5, platelets 184. Sodium 135, potassium 3.8, chloride 100, CO2 28, BUN 40, creatinine 1.1, glucose 125. Troponin 0.015. CT head initial read, no acute pathology. Chest x-ray as per my interpretation atelectasis. Cervical spine CT showed no fracture or subluxation, initial read. EKG as per my interpretation, rate 65, NSR, LAD, LAFB, right bundle branch block, no ischemia. ASSESSMENT: 1. Headache, dizziness, neck pain multifactorial : Peripheral vertigo Hypertensive urgency (unknown baseline control at home) rule out orthostasis. 2. Paroxysmal atrial fibrillation. NSR, not on Coumadin. 3. Parkinson's disease. 4. History of breast cancer, right, status post-surgery, hormonal therapy 5. Abdominal pain from diarrhea rule out colitis. PLAN: Observation PCU. Check orthostatic vitals. Monitor BP on verapamil, may need titration or additional agent CT abdomen and pelvis. RE abd pain stool C. diff. PT/OT eval. DVT prophylaxis, Lovenox subQ. DNR. Patient's granddaughter/POA requesting updates by providers. Miss Eunice Cannon, contact number [phone]. [employer]
--- NOTE | 2017-07-25 15:02 | PULMONARY CONSULTATION ---
DATE OF CONSULTATION: 07/25/2017 TIME: 1:50 p.m. REPORT OF CONSULTATION: The patient was seen in room 283 bed 1. HISTORY OF PRESENT ILLNESS: She is an 82-year-old female who came to the Emergency Room yesterday with complaints of dizziness. She also had probably true vertigo. She had vomiting a total of 4 times. She had slight diarrhea. She was having pain in her neck and in her head. She is generally feeling better today. Her symptoms for the most part have improved. Her symptoms began suddenly. As part of her overall evaluation, the patient had a number of studies done which included a CAT scan of the abdomen and pelvis. This showed evidence of bilateral lower lobe infiltrates. This could look compatible with pneumonia or aspiration. There also was a nodule in the right lower lobe measuring 1.5 cm. The patient previously had a CAT scan of the abdomen and pelvis on 05/12/2012. At that time the nodule measured 9.6 mm compared with the 1.5 cm, currently. The patient does not recall ever being told of a nodule in her lung before. She denies any history of any lung troubles in the past. She has never smoked. She does admit to having some degree of shortness of breath with exertion. For instance, she has to walk about 50 yards to get her mail and it is slightly downhill. When she walks back up the hill, she is somewhat short of breath. She states that going through large stores such as [employer] or [employer], she would get very tired. She was not certain if she would actually be short of breath or not. She denied any cough other than in the morning she usually clears her throat and expectorates a little bit of foamy mucus. She has mild postnasal drip. She is not sure where the mucus comes from, but she does not feel like she is coughing anything out of her chest. She has never been told of any abnormalities on her x-ray or CAT scan in the past. 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 She did not have any significant exposures to dust, fumes, or chemicals. PAST MEDICAL HISTORY: 1. Parkinson's disease. 2. Atrial fibrillation. 3. Diaphragmatic hernia. 4. Diverticular disease. 5. Breast cancer, treated with surgery. The patient refused chemo or radiation. 6. Hyperlipidemia. 7. Hypertension. 8. Irritable bowel syndrome. 9. Childbirth x2. PAST SURGICAL HISTORY: 1. Cholecystectomy. 2. Mastectomy. 3. Appendectomy. 4. Tubal ligation. 5. Hysterectomy. 6. Hernia repair. FAMILY HISTORY: Father in his 60s of stomach cancer. Mother at age 85 of OR. SOCIAL HISTORY: Tobacco never. ETOH -- none. ALLERGIES: 1. CARDIZEM. 2. ACETAMINOPHEN. 3. ADHESIVES. 4. CODEINE. 5. OXYCODONE 6. PENICILLIN. REVIEW OF SYSTEMS: The patient states her weight is stable. She denies any chest pains. She has Parkinson's disease as noted. She states she had tremors much worse in the past and these were aided by taking an over the counter coconut supplement. She does have problems with balance. She relates that yesterday during her vertigo, she actually fell into a chair. She is not nauseated today. The remainder of the review of systems is otherwise negative except as noted above. Ten systems reviewed. MEDICATIONS AT HOME: 1. Aspirin 81 mg daily. 2. Coconut oil organic. 3. Vitamin B12. 4. Vitamin D. 5. Escitalopram 5 mg daily. 6. Calan 120 mg b.i.d. 7. Furosemide p.r.n. for leg swelling. 8. Meclizine p.r.n. dizziness or vertigo. 9. Simethicone p.r.n. gas discomfort. PHYSICAL EXAMINATION: GENERAL: The patient is a pleasant 82-year-old female who was cooperative, alert and oriented. She did not appear in any distress. Weight is listed as 78.9 kg with a BMI of 26.5. VITAL SIGNS: Temperature is 36.7. There has been no documented fevers. HEENT: Eye exam suggests implants. Nares were unremarkable. Mouth exam showed no erythema or exudate. NECK: Palpation of the neck reveals no lymph nodes. CHEST: The chest showed a mild kyphosis. HEART: The cardiac rate was 61. The rhythm is regular. Blood pressure 148/67. LUNGS: Auscultation of the lung reynolds revealed mild rales at the bases. Respiratory rate was 18. Oxygen saturation was 93% on room air. ABDOMEN: The abdomen was soft. Bowel sounds were slightly diminished but present. There was no tenderness to palpation, masses, or organomegaly. EXTREMITIES: Showed no cyanosis or clubbing. She has nonpitting edema which was [id number] on both lower extremities. LABORATORY DATA: The patient had a CAT scan of the thoracic spine which showed a 16-mm nodule in the right lower lobe. They also reported a 5-mm nodule in the right lower lobe. There was a calcified granuloma in the left lower lobe. Head CAT scan showed no acute abnormality. Cervical spine CAT scan again showed the nodule in the right lower lobe. It should be noted that careful review of the CAT scan of the thoracic spine shows that it was done at 11:53 p.m. on 07/24/2017. The right lower lobe nodule was clearly seen, but there was not the degree of infiltrates which were seen later at 3:32 a.m. on the CAT scan of the abdomen done at 07/25/2017. There was a distinct change in that 3-1/2 hour timeframe. CBC on admission showed a white count of 6.56 and today was 6.98. Hemoglobin on admission was 15.5 and today was 14. Platelets were 184,000 on admission and today 178,000. Electrolytes show sodium 138, potassium 3.9, chloride 100, bicarb 32. BUN is 14 with creatinine 0.83. Troponin was negative. Liver functions were showing AST elevated at 66, but ALT was normal at 70. IMPRESSIONS: 1. Bilateral lower lobe infiltrates -- questionable pneumonia versus atelectasis. 2. Right lower lobe nodule measuring 1.5 cm -- increased in size from 9.6 mm in 2013. COMMENTS AND RECOMMENDATIONS: The patient has no symptoms to suggest a true pneumonia. However, she could have aspiration pneumonia. This could also be atelectasis. I would suggest a swallow evaluation at some point. There is a question as to whether antibiotics are necessary. I would tend to hold on antibiotics for now and assess her clinical status. If she would develop fevers, increased cough or sputum production, would then certainly consider antibiotic treatment. I would suggest incentive spirometry be ordered in the event that she has some atelectasis that could be improved. She likely will need a 2-step before discharge as well to determine if her oxygen decreases with ambulation. The infiltrates and the nodule need followup. I would suggest a CAT scan of the chest to be done in 3 months. I would also suggest outpatient pulmonary functions. The patient could be seen by the pulmonary division if requested. For now, we would follow her carefully for the next 24-48 hours to be sure she is not developing a true pneumonic process. Thank you for asking me to assist in her care.
[2017-07-25] MEDS ORDERED: MECL1TAB42 PO (16:42)
--- NOTE | 2017-07-25 16:56 | Progress Note ---
Internal Med Progress Note Date of Service: July 25, 2017. Provider Documentation: SUBJECTIVE: Patient denies pain. She ambulates well. Denies lightheadedness OBJECTIVE: Exam: General- no distress Eyes- EOMI Neck- full range of motion Lungs- clear to accusation bilaterally, no wheezing, no use of accessory muscles Heart- bradycardia, regular rhythm Abdomen- soft, nontende,r + bowel sounds Extremities- no edema Neuro- awake and alert, no focal deficits ASSESSMENT & PLAN: Hospital Course and Discharge Plans As per Emergency room notes "82 year old female who presents to the Emergency Room with complaints of persistent dizziness that started 7 hours ago. The patient rates her pain a 10/ 10 in severity. The patient reports she fell around 4pm this afternoon because she was dizzy. She notes "I went to turn and I lost my balance because I was dizzy". She states she fell into a chair. The patient reports she has Parkinson' s. She notes it is normal for her to get dizzy. The patient also vomited today. She reports she has pain in the back of her neck that radiates to her head and back. She notes the pain started 3-4 hours after her fall." Initial blood pressure in the ED was 197/75 and observation admitting diagnosis listed as hypertensive urgency Patient received Morphine / Dilaudid for the pain. Also Antiemetics ordered as Zofran/Reglan. Meclizine also ordered. Patient given Verapamil Head CT: No acute intracranial abnormality. No fracture or subluxation within the cervical or thoracic spine. There is severe disc space narrowing at C2-C3 and C5-C6 and C6-C7. Moderate facet degenerative changes within the cervical spine. No fracture or subluxation within the cervical or thoracic spine. Prevertebral soft tissues and the C1-C2 interval are intact. Mild degenerative disc disease throughout the thoracic spine The neck pain resolved Patient was given IV fluids. No orthostatic hypotension was identified Health history of Paroxysmal atrial fibrillation Patient monitored on telemetry - no atrial fibrillation was noted. Patient generally with bradycardia and sinus in rhythm C.difficile test negative CT abdomen/Pelvis: Interval development of bilateral lower lobe airspace opacities which likely represents a pneumonia, possibly secondary to aspiration and also noted 1.5 cm nodule within the right lower lobe, also a is also a 5 mm indeterminate pulmonary nodule within the right lower lobe Patient was evaluated by pulmonary service for bilateral infiltrates and determined that the right lower lobe nodule measuring 1.5 cm - increased in size from 9.6 mm in 2013 Pulmonary service recommend a CAT scan of the chest to be done in 3 months, recommend outpatient pulmonary function patient to use incentive spirometer speech and swallow evaluated the patient and did swallowing is within normal limits at the bedside patient did not have clinical signs of pneumonia - no fever, no leukocytosis. breathing on room air at rest and with ambulation. patient was able to ambulate with physical therapy and no deficits noted with walking and picking up objects. patient was also evaluated by occupational therapy Pt will benefit from home health OT to access safety in the home setting upon discharge as per occupational therapy. This was discussed with case work aide and plan is to discharge home with home health services to be established reported history of Parkinson's Medication nonadherence: at home patient on verapamil , aspirin, escitalopram, coconut oil only. Unclear is she is adherent to medications. She has no longer been on Lasix or Spirolactone. Patient is encouraged to bring all her medications to primary care doctor for medical reconciliation Discharge Diagnosis Cervical Disc Disease Neck Pain Hypertensive Urgency Vertigo Atelectasis of both lungs Right lung nodule Non adherence to medication Discharge Instructions Discharge to Home with Home Health Services and follow up with 07/28/2017 10:30 AM Luzma Brooke, [facility] Patient should bring all home medication bottles with primary care doctor and discuss which medication she should be regularly taking Patient to be given prescription of Meclizine for vertigo (dizziness) and Motrin if she experiences neck pain Patient will be discharged with incentive spirometer for atelectasis. Should follow up with primary care doctor for follow up lung imaging of bilateral lower lobe airspace opacities for atelectasis versus potential pneumonia. will need [address] scan for follow up of lung nodule, primary care doctor can coordinate pulmonary function test as recommended by [facility] pulmonology Vital Signs: Date Time Temp Pulse Resp B/P (MAP) Pulse Ox O2 Delivery O2 Flow Rate FiO2 07/25/17 16:51 36.8 60 18 91 Room Air 07/25/17 15:31 36.8 60 18 127/68 (87) 91 Room Air 07/25/17 12:00 36.7 61 18 152/80 (104) 93 Room Air 07/25/17 12:00 Room Air 07/25/17 08:32 148/67 (94) 155/75 (101) 151/66 (94) 07/25/17 08:14 64 07/25/17 07:45 Room Air 07/25/17 07:25 36.1 53 16 136/71 (92) 91 Room Air 07/25/17 04:30 Room Air 07/25/17 03:35 36.4 68 20 155/72 91 Room Air 07/25/17 02:45 61 07/25/17 02:27 59 18 149/57 97 Room Air 07/25/17 01:51 60 18 144/60 97 Room Air 07/25/17 00:05 68 18 178/63 97 Room Air 07/24/17 23:33 85 188/79 88 190/61 07/24/17 23:23 98 Room Air 07/24/17 23:10 68 07/24/17 23:01 36.7 67 19 197/75 97 Room Air Lab Results: Results Past 24 Hours Test 07/24/17 23:15 07/25/17 06:26 Range/Units White Blood Count 6.56 6.98 4.8-10.8 K/uL Red Blood Count 5.08 4.60 4.2-5.4 M/uL Hemoglobin 15.5 14.0 12.0-16.0 g/dL Hematocrit 45.5 41.4 37-47 % Mean Corpuscular Volume 89.6 90.0 80-100 fL Mean Corpuscular Hemoglobin 30.5 30.4 25-34 pg Mean Corpuscular Hemoglobin Concent 34.1 33.8 32-36 g/dl Platelet Count 184 178 130-400 K/uL Mean Platelet Volume 9.5 9.5 7.4-10.4 fL Neutrophils (%) (Auto) 68.9 61.6 % Lymphocytes (%) (Auto) 22.7 30.8 % Monocytes (%) (Auto) 7.2 6.6 % Eosinophils (%) (Auto) 0.6 0.3 % Basophils (%) (Auto) 0.3 0.4 % Neutrophils # (Auto) 4.52 4.30 1.4-6.5 K/uL Lymphocytes # (Auto) 1.49 2.15 1.2-3.4 K/uL Monocytes # (Auto) 0.47 0.46 0.11-0.59 K/uL Eosinophils # (Auto) 0.04 0.02 0-0.5 K/uL Basophils # (Auto) 0.02 0.03 0-0.2 K/uL RDW Standard Deviation 46.6 47.0 36.4-46.3 fL RDW Coefficient of Variation 14.3 14.2 11.5-14.5 % Immature Granulocyte % (Auto) 0.3 0.3 % Immature Granulocyte # (Auto) 0.02 0.02 0.00-0.02 K/uL Sodium Level 138 138 136-145 mmol/L Potassium Level 3.8 3.9 3.5-5.1 mmol/L Chloride Level 100 100 98-107 mmol/L Carbon Dioxide Level 28 32 21-32 mmol/L Anion Gap 10.0 6.0 3-11 mmol/L Blood Urea Nitrogen 14 14 7-18 mg/dl Creatinine 1.02 0.83 0.60-1.20 mg/dl Est Creatinine Clear Calc Drug Dose 48.0 58.7 ml/min Estimated GFR () 59.7 76.6 Estimated GFR (Non- 51.5 66.1 BUN/Creatinine Ratio 14.1 17.3 10-20 Random Glucose 125 109 70-99 mg/dl Calcium Level 9.0 8.5 8.5-10.1 mg/dl Total Bilirubin 0.5 0.2-1 mg/dl Direct Bilirubin 0.1 0-0.2 mg/dl Aspartate Amino Transf (AST/SGOT) 66 15-37 U/L Alanine Aminotransferase (ALT/SGPT) 70 12-78 U/L Alkaline Phosphatase 86 45-117 U/L Total Creatine Kinase 104 26-192 U/L Creatine Kinase MB 1.0 0.5-3.6 ng/ml Creatine Kinase MB Ratio 1.0 0-3.0 Troponin I < 0.015 < 0.015 0-0.045 ng/ml Pro-B-Type Natriuretic Peptide 207 0-1800 pg/ml Total Protein 7.9 6.4-8.2 gm/dl Albumin 3.8 3.4-5.0 gm/dl Thyroid Stimulating Hormone (TSH) 4.290 0.300-4.500 uIu/ml Prothrombin Time 11.6 9.0-12.0 SECONDS Prothromb Time International Ratio 1.1 0.9-1.1 Microbiology Results 07/25/17 C.difficile Toxin B Gene (PCR) - Final, Complete No C. difficile toxin B gene detected
[2017-07-25] MEDS ORDERED: IBUP-1459 PO (17:30)
--- NOTE | 2017-07-25 17:39 | Discharge Instructions ---
Discharge Instructions Date of Service July 25, 2017. Admission Reason for Admission: Hypertensive Urgency Discharge Discharge Diagnosis / Problem: Hypertensive urgency, atelectasis, pulmonary nodule, vertigo, neck pain Discharge Goals Goal(s): Decrease discomfort, Diagnostic testing Activity Recommendations Activity Limitations: per Instructions/Follow-up section Shower/Bathe: no limitations . Instructions / Follow-Up Instructions / Follow-Up Hospital Course and Discharge Plans As per Emergency room notes "82 year old female who presents to the Emergency Room with complaints of persistent dizziness that started 7 hours ago. The patient rates her pain a 10/ 10 in severity. The patient reports she fell around 4pm this afternoon because she was dizzy. She notes "I went to turn and I lost my balance because I was dizzy". She states she fell into a chair. The patient reports she has Parkinson' s. She notes it is normal for her to get dizzy. The patient also vomited today. She reports she has pain in the back of her neck that radiates to her head and back. She notes the pain started 3-4 hours after her fall." Initial blood pressure in the ED was 197/75 and observation admitting diagnosis listed as hypertensive urgency Patient received Morphine / Dilaudid for the pain. Also Antiemetics ordered as Zofran/Reglan. Meclizine also ordered. Patient given Verapamil Head CT: No acute intracranial abnormality. No fracture or subluxation within the cervical or thoracic spine. There is severe disc space narrowing at C2-C3 and C5-C6 and C6-C7. Moderate facet degenerative changes within the cervical spine. No fracture or subluxation within the cervical or thoracic spine. Prevertebral soft tissues and the C1-C2 interval are intact. Mild degenerative disc disease throughout the thoracic spine The neck pain resolved Patient was given IV fluids. No orthostatic hypotension was identified Health history of Paroxysmal atrial fibrillation Patient monitored on telemetry - no atrial fibrillation was noted. Patient generally with bradycardia and sinus in rhythm C.difficile test negative CT abdomen/Pelvis: Interval development of bilateral lower lobe airspace opacities which likely represents a pneumonia, possibly secondary to aspiration and also noted 1.5 cm nodule within the right lower lobe, also a is also a 5 mm indeterminate pulmonary nodule within the right lower lobe Patient was evaluated by pulmonary service for bilateral infiltrates and determined that the right lower lobe nodule measuring 1.5 cm - increased in size from 9.6 mm in 2013 Pulmonary service recommend a CAT scan of the chest to be done in 3 months, recommend outpatient pulmonary function patient to use incentive spirometer speech and swallow evaluated the patient and did swallowing is within normal limits at the bedside patient did not have clinical signs of pneumonia - no fever, no leukocytosis. breathing on room air at rest and with ambulation. patient was able to ambulate with physical therapy and no deficits noted with walking and picking up objects. patient was also evaluated by occupational therapy Pt will benefit from home health OT to access safety in the home setting upon discharge as per occupational therapy. This was discussed with business case analyst and plan is to discharge home with home health services to be established reported history of Parkinson's Medication nonadherence: at home patient on verapamil , aspirin, escitalopram, coconut oil only. Unclear is she is adherent to medications. She has no longer been on Lasix or Spirolactone. Patient is encouraged to bring all her medications to primary care doctor for medical reconciliation Discharge Diagnosis Cervical Disc Disease Neck Pain Hypertensive Urgency Vertigo Atelectasis of both lungs Right lung nodule Non adherence to medication Discharge Instructions Discharge to Home with Home Health Services and follow up with 07/28/2017 10:30 AM Luzma Brooke, [facility] Patient should bring all home medication bottles with primary care doctor and discuss which medication she should be regularly taking Patient to be given prescription of Meclizine for vertigo (dizziness) and Motrin if she experiences neck pain Patient will be discharged with incentive spirometer for atelectasis. Should follow up with primary care doctor for follow up lung imaging of bilateral lower lobe airspace opacities for atelectasis versus potential pneumonia. will need [address] scan for follow up of lung nodule, primary care doctor can coordinate pulmonary function test as recommended by [facility] pulmonology Current Hospital Diet Patient's current hospital diet: AHA Diet (Heart Healthy) Discharge Diet Recommended Diet: AHA Diet (Heart Healthy) Pending Studies Studies pending at discharge: no Medical Emergencies . Who to Call and When: Medical Emergencies: If at any time you feel your situation is an emergency, please call 911 immediately. . Non-Emergent Contact Non-Emergency issues call your: Primary Care Provider . . "Provider Documentation" section prepared by Fabian Smith. .
--- NOTE | 2017-07-25 17:49 | Discharge Summary ---
Discharge Summary Date of Service July 25, 2017. Discharge Summary Admission Date: July 25, 2017 at 02:35 Discharge Date: July 25, 2017 Discharge Disposition: Home with services Principal Diagnosis: Cervical Disc Disease Neck Pain Hypertensive Urgency Vertigo Atelectasis of both lungs Right lung nodule Non adherence to medication Medication Reconciliation New Medications: Ibuprofen (Motrin) 400 Mg Tab 400 MG PO Q6H PRN for Pain for 5 Days, #20 TAB Continued Medications: Aspirin (Aspirin) 81 Mg Tab 81 MG PO DAILY for 90 Days, #90 TAB 3 Refills Coconut Oil (Coconut Oil Organic) 1,000 Mg Cap 1000 MG PO DAILY Escitalopram Oxalate (Lexapro) 5 Mg Tab 5 MG PO DAILY, TAB Meclizine Hcl (Meclizine Hcl) 25 Mg Tab 1 TAB PO QID PRN for Dizziness or Vertigo for 10 Days, #40 TAB (This prescription has been renewed) Verapamil (Calan) 120 Mg Tab 120 MG PO BID Discontinued Medications: Cyanocobalamin (Vitamin B-12) 500 Mcg Tab 500 MCG PO BID, 0 Refills Ergocalciferol (Vitamin D 53921 Unit) 50,000 Unit Cap 39641 UNIT PO 2XWK, CAP Furosemide (Lasix) 20 Mg Tab 20 MG PO DAILY PRN for SWELLING IN LEGS, TAB Simethicone (Mylicon) 80 Mg Chw 80 MG PO QID PRN for GAS DISCOMFORT, TAB Admission Information HPI (per Admitting provider): CHIEF COMPLAINT:. Dizziness, vomiting, headache, neck pain. HISTORY OF PRESENT ILLNESS: Medical history is significant for atrial fibrillation, not on admission, hypertension, Parkinson's disease, breast cancer, status post surgery, right, chemotherapy. Recent confinement last in October 2016 for dizzy spells and vertigo. As per the granddaughter yesterday noted to be dizzy, spinning. No chest pain, no shortness of breath. Some neck pain which she gets from [id number]. No cough, no trauma. Achy headache symptoms, some nausea. No emesis. Loose stools also. Brought her to the Emergency Room. She does not take blood pressure at home. MEDICAL HISTORY: As above. SURGERIES: She had cholecystectomy, right mastectomy, appendectomy, tubal ligation, cholecystectomy, skin tumor surgery, total abdominal hysterectomy, hemorrhoidectomy. HOME MEDICATIONS: Aspirin, coconut oil, cyanocobalamin, escitalopram, furosemide as needed, meclizine, simethicone, verapamil. ALLERGIES: ALLERGY TO ADHESIVES, CARDIZEM, MORPHINE. FAMILY HISTORY: Hypertension. PERSONAL AND SOCIAL HISTORY: Past smoker. No chronic intake of alcoholic beverages. 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 REVIEW OF SYSTEMS: As per HPI, all 10 systems reviewed. All other ROS negative. Physical Exam (per Admitting): PHYSICAL EXAMINATION: VITAL SIGNS: Blood pressure was noted to be ____, pulse rate 68, RR 18, temperature 36.5, sats 97 on room air. GENERAL: Noted to be comfortable, pleasant, in no respiratory distress. SKIN: Normal color, warm. HEENT: Pale palpebral conjunctivae. No ptosis. Dry mucosa. Bespectacled. NECK: Supple, nontender. CHEST: Decreased effort. No tenderness. HEART: Regular rate and rhythm, no murmur. ABDOMEN: Some distention, nontender. EXTREMITIES: Minimal edema. Some stasis. No tenderness. NEUROLOGICAL EXAMINATION: Coherent. No gross focality. Gait and stance not assessed. Hospital Course Hospital Course and Discharge Plans As per Emergency room notes "82 year old female who presents to the Emergency Room with complaints of persistent dizziness that started 7 hours ago. The patient rates her pain a 10/ 10 in severity. The patient reports she fell around 4pm this afternoon because she was dizzy. She notes "I went to turn and I lost my balance because I was dizzy". She states she fell into a chair. The patient reports she has Parkinson' s. She notes it is normal for her to get dizzy. The patient also vomited today. She reports she has pain in the back of her neck that radiates to her head and back. She notes the pain started 3-4 hours after her fall." Initial blood pressure in the ED was 197/75 and observation admitting diagnosis listed as hypertensive urgency Patient received Morphine / Dilaudid for the pain. Also Antiemetics ordered as Zofran/Reglan. Meclizine also ordered. Patient given Verapamil Head CT: No acute intracranial abnormality. No fracture or subluxation within the cervical or thoracic spine. There is severe disc space narrowing at C2-C3 and C5-C6 and C6-C7. Moderate facet degenerative changes within the cervical spine. No fracture or subluxation within the cervical or thoracic spine. Prevertebral soft tissues and the C1-C2 interval are intact. Mild degenerative disc disease throughout the thoracic spine The neck pain resolved Patient was given IV fluids. No orthostatic hypotension was identified Health history of Paroxysmal atrial fibrillation Patient monitored on telemetry - no atrial fibrillation was noted. Patient generally with bradycardia and sinus in rhythm C.difficile test negative CT abdomen/Pelvis: Interval development of bilateral lower lobe airspace opacities which likely represents a pneumonia, possibly secondary to aspiration and also noted 1.5 cm nodule within the right lower lobe, also a is also a 5 mm indeterminate pulmonary nodule within the right lower lobe Patient was evaluated by pulmonary service for bilateral infiltrates and determined that the right lower lobe nodule measuring 1.5 cm - increased in size from 9.6 mm in 2013 Pulmonary service recommend a CAT scan of the chest to be done in 3 months, recommend outpatient pulmonary function patient to use incentive spirometer speech and swallow evaluated the patient and did swallowing is within normal limits at the bedside patient did not have clinical signs of pneumonia - no fever, no leukocytosis. breathing on room air at rest and with ambulation. patient was able to ambulate with physical therapy and no deficits noted with walking and picking up objects. patient was also evaluated by occupational therapy Pt will benefit from home health OT to access safety in the home setting upon discharge as per occupational therapy. This was discussed with hospice case manager and plan is to discharge home with home health services to be established reported history of Parkinson's Medication nonadherence: at home patient on verapamil , aspirin, escitalopram, coconut oil only. Unclear is she is adherent to medications. She has no longer been on Lasix or Spirolactone. Patient is encouraged to bring all her medications to primary care doctor for medical reconciliation Discharge Diagnosis Cervical Disc Disease Neck Pain Hypertensive Urgency Vertigo Atelectasis of both lungs Right lung nodule Non adherence to medication Discharge Instructions Discharge to Home with Home Health Services and follow up with 07/28/2017 10:30 AM Luzma Brooke, [facility] Patient should bring all home medication bottles with primary care doctor and discuss which medication she should be regularly taking Patient to be given prescription of Meclizine for vertigo (dizziness) and Motrin if she experiences neck pain Patient will be discharged with incentive spirometer for atelectasis. Should follow up with primary care doctor for follow up lung imaging of bilateral lower lobe airspace opacities for atelectasis versus potential pneumonia. will need [address] scan for follow up of lung nodule, primary care doctor can coordinate pulmonary function test as recommended by [facility] pulmonology Total time spent on discharge = 40 minutes This includes examination of the patient, discharge planning, medication reconciliation, and communication with other providers. Discharge Instructions see above
== END 2017-07-25 18:07 | disposition home health service (06) ==
LOC: C.EDB 23:01 → C.MED 07-25 02:35 → ENRESERV 07-25 03:08
PROVIDERS: ADMIT Internal Medicine; ATTEND Hospitalist
DX: M50.90 Cervical disc disorder, unspecified, unspecified cervical region (principal); I10 Essential (primary) hypertension; R42 Dizziness and giddiness; J98.11 Atelectasis; R91.1 Solitary pulmonary nodule; Z91.14 Patient's other noncompliance with medication regimen; I48.91 Unspecified atrial fibrillation; G20 Parkinson's disease; Z79.82 Long term (current) use of aspirin; Z88.8 Allergy status to other drugs, medicaments and biological substances; Z88.1 Allergy status to other antibiotic agents; Z88.5 Allergy status to narcotic agent; Z85.3 Personal history of malignant neoplasm of breast; Z79.890 Hormone replacement therapy

== ENCOUNTER 2022-05-16 11:20 | Inpatient (IN) ==
[2022-05-16] MEDS ORDERED: KETOROLAC TROMETHAMINE 15 MG/ML VIAL IV ONE (11:43)
--- NOTE | 2022-05-16 11:51 | Emergency Department Note ---
History of Present Illness General Chief complaint: Referred by Doctor Stated complaint: BROKEN HIP AND BROKEN SHOULDER, REF BY DOC Time Seen by Provider: 05/16/22 11:27 Source: patient, family (Family members are at the bedside and I talked to them), RN notes reviewed and old records reviewed (I have reviewed the x-rays done as an outpatient at the orthopedist office) Mode of arrival: ambulatory Limitations: no limitations History of Present Illness Maximum Pain Intensity: 8 This patient is a 86-year-old female who comes in after falling yesterday. She was seen here and was diagnosed with a shoulder and elbow fracture. She follow- up with orthopedics this morning and was complaining of hip pain and they x- rayed her hip and she was found to have a left femoral neck fracture and was sent back to the ER for further evaluation and admission. The patient denies any fall since she left here she said yesterday she was getting out of her car in the [employer] parking lot and she not sure why she fell but twisted. There is no syncope or her symptoms prior to falling and she think she has tripped. No syncope she does not think she hit her head she has mild neck pain. She is on no blood thinners no chest pain or shortness of breath she has hip elbow and shoulder pain no numbness or weakness. She was evaluated orthopedist in Dr. Clemons's office and they do plan on operating on her hip and will likely not operate on her shoulder and elbow according to the family. No new numbness or weakness no change in vision Home Medications Medication Instructions Recorded Confirmed Type aspirin 81 mg tablet,delayed 81 mg PO QAM 07/07/21 05/16/22 History release (Kathie Low Dose Aspirin) escitalopram oxalate 10 mg tablet 10 mg PO QAM 07/07/21 05/16/22 History furosemide 20 mg tablet 20 mg PO QAM 07/07/21 05/16/22 History meclizine 25 mg tablet 25 mg PO TID PRN Dizziness 07/07/21 05/16/22 History omeprazole 20 mg capsule,delayed 20 mg PO QAM 07/07/21 05/16/22 History release verapamil 120 mg tablet,extended 120 mg PO AMPM 07/07/21 05/16/22 History release cyanocobalamin (vitamin B-12) 1,000 mcg PO DAILY 05/15/22 05/16/22 History 1,000 mcg tablet (Vitamin B-12) losartan 50 mg tablet 50 mg PO HS 05/15/22 05/16/22 History Allergies Allergy/AdvReac Type Severity Reaction Status Date / Time adhesive Allergy Intermediate rash Verified 05/15/22 18:20 codeine Allergy Intermediate ITCHING Verified 05/15/22 18:20 oxycodone Allergy Intermediate ITCHING Verified 05/15/22 18:20 Penicillins Allergy Intermediate ITCHING Verified 05/15/22 18:20 Past Med/Surg History Medical History Depression Dyslipidemia GERD (gastroesophageal reflux disease) HTN (hypertension) IBS (irritable bowel syndrome) Parkinsons disease Paroxysmal A-fib Surgical History History of cholecystectomy History of right mastectomy Social History Smoking Status: Never smoker Second Hand Exposure: No; Do You Dip or Chew Tobacco: No; Tobacco Cessation Education Requested by Patient: No Hx Alcohol Use: No Hx Substance Use: No Preferred Language: Mongolian Communication Ability: Effective Safety Associate Required: No Beliefs That Will Affect Care: None Current Living Situation: Alone Current Living Situation Comment: lives next to son and daughter in law Other Information That Helps Us Care for You: No Feels Safe at Home: Yes Safety Concerns: Feels Safe At This Time Assistive Devices: Cane Immunizations: Past medical historyvertigo, A-fib. Denies that she is on any blood thinners Social historylives locally is followed by [facility] Review of Systems A total of 10 systems reviewed and were otherwise negative Physical Exam Vital Signs Vital Signs - 24 hr 05/16/22 11:22 05/16/22 13:00 05/16/22 13:59 Temperature 36.6 C Temperature Source Temporal Artery Scan Pulse Rate 67 Pulse Rate [Finger] 76 Pulse Rhythm [Finger] Regular Pulse Strength [Finger] Normal Respiratory Rate 20 20 Respiratory Effort / Characteristics Non-Labored Respiratory Depth Normal Normal Respiratory Pattern Regular Blood Pressure 163/64 H Blood Pressure Mean 97 Pulse Oximetry 91 98 86 L Oxygen Delivery Method Room Air Room Air Room Air Oxygen Flow Rate Sepsis Recent Fever Within 48 Hours No Sepsis New/Unexplained Change in Mental Status N/A Sepsis Action Taken by Nursing No Action Required 05/16/22 13:59 Temperature Temperature Source Pulse Rate Pulse Rate [Finger] Pulse Rhythm [Finger] Pulse Strength [Finger] Respiratory Rate Respiratory Effort / Characteristics Respiratory Depth Respiratory Pattern Blood Pressure Blood Pressure Mean Pulse Oximetry 99 Oxygen Delivery Method Nasal Cannula Oxygen Flow Rate 2 Sepsis Recent Fever Within 48 Hours Sepsis New/Unexplained Change in Mental Status Sepsis Action Taken by Nursing General: Well developed well nourished older female who is awake and alert orient x3 and appears in no acute distress, breathing comfortably on room air. Normal speech HEENT: Normal cephalic atraumatic. Pupils are equal round and reactive to light . Extraocular movements are intact. Oropharynx is pink with moist mucous membranes. No swelling of the mouth lips or tongue. Neck: Supple with a midline trachea. No meningeal signs or stiffness, no JVD or bruits. No Stridor. Chest: Clear to auscultation bilaterally. No wheezes or rhonchi. No increased work of breathing. Heart: Regular rate and rhythm without murmurs or gallops. Abdomen: Soft nontender, nondistended without rebound guarding or rigidity. Extremities: No cyanosis clubbing or edema. No calf tenderness or assymetry. Her left upper extremity is in a splint and sling. She is able to wiggle her fingers and they have good color. Her left lower extremity is rotated internal ly and shortened. Normal distal pulses Spine/Back. Non tender to palpation. No CVA tenderness Skin: Good turgor without rashes. Neurologic exam: Cranial nerves two through 12 are intact. Motor and sensation are intact and symmetrical throughout. Procedures Free Text Procedures ED observation The patient was placed in observation status at 11:42 on 05/16/22 for Weakness, fall, cardiac work-up During the time in observation, the patient was frequently reassessed and received for arrhythmia/cardiac work-up. On Final reassessment the patient remained stable on the nurse monitoring without any arrhythmia. 2 negative EKGs and troponins which were reassuring for no cardiac event and the patient will be admitted for further evaluation for noncardiac injuries related to fall at this time. A total observation time of 3 hours and 11 minutes Course Administered Medications Acetaminophen (Acetaminophen 500 Mg Tab) 1,000 mg PO Q8H YONNY Stop: 06/15/22 17:46 Last Admin: 05/16/22 18:11 Dose: 1,000 mg Documented By: TACHO Discontinued Medications Fentanyl Citrate (Fentanyl Citrate 100 Mcg/2 Ml Vial) 25 mcg IV NOW ONE Stop: 05/16/22 13:14 Last Admin: 05/16/22 13:18 Dose: 25 mcg Documented By: SUPRIYA Ioversol (Optiray 350 100ml) 90 ml IV ONCE ONE Stop: 05/16/22 14:02 Last Admin: 05/16/22 14:02 Dose: 90 ml Documented By: PADILLA Ketorolac Tromethamine (Ketorolac Tromethamine 15 Mg/Ml Vial) 10 mg IV NOW ONE Stop: 05/16/22 11:44 Last Admin: 05/16/22 11:55 Dose: 10 mg Documented By: BRODY Medical Decision Making Differential Diagnosis Hip fracture, shoulder fracture, orthopedic injuries, fall, internal injuries, syncope, cardiac disease, electrolyte or metabolic abnormality Medical Records Attestation: I reviewed the patient's medical records. Home Medications Current Medication List: was personally reviewed by me Laboratory Data Attestation: I reviewed the patient's lab results. 05/16/22 12:31 05/16/22 12:31 Lab Results 05/16/22 05/16/22 05/16/22 Range/Units 12:31 12:31 12:31 WBC 13.39 H (4.8-10.8) K/ul RBC 4.81 (4.20-5.40) M/uL Hgb 14.2 (12.0-16.0) g/dl Hct 42.1 (37.0-47.0) % MCV 87.5 (80.0-100.0) fL MCH 29.5 (25.0-34.0) pg MCHC 33.7 (32.0-36.0) g/dL RDW Std Deviation 44.5 (36.4-46.3) fL RDW Coeff of Ysabel 13.8 (11.5-14.5) % Plt Count 188 (130-400) K/uL MPV 9.7 (9.4-12.4) fL Immature Gran % (Auto) 0.6 % Neut % (Auto) 86.7 % Lymph % (Auto) 6.5 % [place] % (Auto) 6.0 % Eos % (Auto) 0.0 % Baso % (Auto) 0.2 % Neut # (Auto) 11.60 H (1.40-6.50) K/uL Lymph # (Auto) 0.87 L (1.2-3.4) K/uL [place] # (Auto) 0.81 H (0.11-0.59) K/uL Eos # (Auto) 0.00 (0-0.50) K/uL Baso # (Auto) 0.03 (0-0.2) K/uL Immature Gran # (Auto) 0.08 (0.01-0.20) K/uL PT Cancelled INR Cancelled APTT Cancelled PTT Ratio Cancelled Sodium 139 (136-145) mmol/L Potassium 3.9 (3.5-5.1) mmol/L Chloride 100 (98-107) mmol/L Carbon Dioxide 33 H (21-32) mmol/L Anion Gap 6 (3-11) BUN 23 (6-23) mg/dl Creatinine 1.02 (0.6-1.2) mg/dl Est Cr Clr Drug Dosing Not Reportable Est GFR ( Amer) 58.1 ml/min Est GFR (Non-Af Amer) 50.1 ml/min BUN/Creatinine Ratio 22.5 H (10-20) Glucose 114 H (70-99(Fasting)) mg/dl Calcium 9.2 (8.5-10.1) mg/dl Magnesium 2.1 (1.7-2.4) mg/dl Total Bilirubin 1.0 (0.2-1.0) mg/dl AST 30 (13-39) U/L ALT 29 (7-52) U/L Alkaline Phosphatase 65 (34-104) U/L Troponin I High Sens 15.2 H (0-14) pg/ml Total Protein 6.9 (6.0-8.3) gm/dl Albumin 4.0 (3.4-5.0) gm/dl Globulin 2.9 (2.5-4.0) gm/dl Albumin/Globulin Ratio 1.4 (0.9-2) Lipase 5 L (11-82) U/L 05/16/22 05/16/22 Range/Units 14:54 14:54 WBC (4.8-10.8) K/ul RBC (4.20-5.40) M/uL Hgb (12.0-16.0) g/dl Hct (37.0-47.0) % MCV (80.0-100.0) fL MCH (25.0-34.0) pg MCHC (32.0-36.0) g/dL RDW Std Deviation (36.4-46.3) fL RDW Coeff of Ysabel (11.5-14.5) % Plt Count (130-400) K/uL MPV (9.4-12.4) fL Immature Gran % (Auto) % Neut % (Auto) % Lymph % (Auto) % [place] % (Auto) % Eos % (Auto) % Baso % (Auto) % Neut # (Auto) (1.40-6.50) K/uL Lymph # (Auto) (1.2-3.4) K/uL [place] # (Auto) (0.11-0.59) K/uL Eos # (Auto) (0-0.50) K/uL Baso # (Auto) (0-0.2) K/uL Immature Gran # (Auto) (0.01-0.20) K/uL PT 12.0 INR 1.1 APTT 26.2 PTT Ratio 1.0 Sodium (136-145) mmol/L Potassium (3.5-5.1) mmol/L Chloride (98-107) mmol/L Carbon Dioxide (21-32) mmol/L Anion Gap (3-11) BUN (6-23) mg/dl Creatinine (0.6-1.2) mg/dl Est Cr Clr Drug Dosing Est GFR ( Amer) ml/min Est GFR (Non-Af Amer) ml/min BUN/Creatinine Ratio (10-20) Glucose (70-99(Fasting)) mg/dl Calcium (8.5-10.1) mg/dl Magnesium (1.7-2.4) mg/dl Total Bilirubin (0.2-1.0) mg/dl AST (13-39) U/L ALT (7-52) U/L Alkaline Phosphatase (34-104) U/L Troponin I High Sens 13.8 (0-14) pg/ml Total Protein (6.0-8.3) gm/dl Albumin (3.4-5.0) gm/dl Globulin (2.5-4.0) gm/dl Albumin/Globulin Ratio (0.9-2) Lipase (11-82) U/L Imaging Data Attestation: I personally reviewed and interpreted this imaging study as follows: My Impression: Left hip x-raydone as an outpatientdoes show a left femoral neck fracture Head CTno acute intracranial hemorrhage or mass effect Radiologist's Impression: Abdomen/Pelvis CT 05/16/22 11:43 CT SCAN OF THE CHEST, ABDOMEN, AND PELVIS WITH IV CONTRAST CLINICAL HISTORY: Trauma. Fall. COMPARISON STUDY: Chest CT dated 11/24/2017. Abdominal CT dated 07/25/2017. TECHNIQUE: Following the IV administration of 90 of Optiray 350, CT scan of the chest, abdomen, and pelvis was performed from the thoracic inlet to the proximal femora. Images are reviewed in the axial, sagittal, and coronal planes. IV contrast was administered without complication. A dose lowering technique was utilized adhering to the principles of ALARA. The examinations are degraded by streak artifact from the arms which could not be elevated above the chest or abdomen. FINDINGS: CHEST: Thyroid: Imaged portions of the thyroid gland are normal in size and attenuation. Thoracic aorta: There is atherosclerotic calcification of the thoracic aorta, w hich is normal in caliber and demonstrates standard 3-vessel arch anatomy. No dissection is seen. Pulmonary vasculature: The pulmonary trunk is normal in caliber. There are no filling defects identified in the central pulmonary vessels to indicate pulmonary embolus. Note that this examination was not protocoled for evaluation of the pulmonary arteries. Heart: The heart is enlarged and without pericardial effusion. The mitral annulus is densely calcified. There are also coronary artery calcifications. Lungs and pleural spaces: Evaluation of the lung parenchyma is degraded by motion artifact. There is a small left pleural effusion with left basilar atelectasis. No pleural effusion is seen on the right. No airspace consolidation typical for pneumonia or pleural effusion is identified. The trachea and central airways are clear. Foci of scarring/atelectasis are noted throughout both lungs. Mild intralobular septal thickening suggests fluid overload. There are scattered calcified granulomas. A 4 mm calcification in a nodule in the right lower lobe on image #198 has been present dating back to 2018. A small fat-containing Bochdalek hernia is noted on the right. Mediastinum: There is no mediastinal hematoma or lymphadenopathy. Monse: Clear. Axillae: There is no axillary lymphadenopathy. Bony thorax: The skeletal structures are osteopenic. There is an impacted and comminuted fracture of the left humeral head and neck with surrounding hemorrhage. The remainder of the bony thorax appears intact. No lytic or blastic lesions are identified. Degenerative change and hyperkyphosis is noted in the thoracic spine. Soft tissues: The right breast is not identified and presumed surgically absent. ABDOMEN AND PELVIS: Liver: The contrast-enhanced liver is normal in size and demonstrates heterogeneously diminished attenuation indicating steatosis. Nodularity of the hepatic surface contour suggestive of a morphologic change of cirrhosis. There is mild intrahepatic biliary ductal dilatation. The hepatic veins and portal veins are patent. Gallbladder: Surgically absent noting clips in the gallbladder fossa. Spleen: Normal in size and attenuation. Pancreas: Unremarkable. Adrenal glands: Mild thickening of the adrenal glands is similar to previous. Kidneys: The contrast enhanced kidneys are normal in size and without hydronephrosis. The kidneys enhance symmetrically. Abdominal vasculature: The abdominal aorta is normal in course and caliber noting advanced atherosclerotic calcification. Bowel: There is mild colonic diverticulosis without CT evidence of acute diverticulitis. No bowel obstruction is seen. A tiny duodenal diverticulum is incidentally noted. The appendix is normal as visualized. Peritoneum: There is no intraperitoneal free air or abdominal ascites. There is a fat-containing umbilical hernia. Lymphadenopathy: None. Pelvic viscera: The bladder is normal as visualized. The uterus is surgically absent. No adnexal lesion is seen. Skeletal structures: The skeletal structures are osteopenic. There is an age indeterminant impacted and displaced subcapital fracture of the left proximal femur. The lumbosacral spine, bony pelvis, and right proximal femur appear intact. There is moderate lumbosacral spondylosis. No lytic or blastic lesions are seen. IMPRESSION: 1. There is an acute impacted and comminuted fracture of the left humeral head a nd neck with surrounding hemorrhage. 2. There is an age indeterminant impacted and displaced subcapital fracture of the left proximal femur. 3. Small left pleural effusion. 4. There is no airspace consolidation or pneumothorax. 5. There is no evidence of solid organ injury in the abdomen or pelvis. 6. The liver steatotic. Nodularity of the surface contour suggest morphologic change of cirrhosis. 7. The heart is enlarged. Intralobular septal thickening suggests mild congestive change/fluid overload. Correlate clinically. 8. Additional findings as above. ACT 112: Negative or not required by law. Electronically signed by: Waylon Beryr M.D. 05/16/2022 2:[address] 05/16/22 11:43 CT cervical spine wo con CT DOSE: 2161.29 mGy.cm CLINICAL HISTORY: 86 years-old Female with fall. Acute neck pain status post fall COMPARISON: 07/07/2021 TECHNIQUE: Multiple axial CT images of the cervical spine were obtained without contrast. A dose lowering technique was utilized adhering to the principles of ALARA. FINDINGS: There is degenerative partial bony fusion at the C2-C3 level. Multilevel intervertebral disc space narrowing, severe at C5-C6 and C6 or C7. Multilevel moderate to severe facet arthrosis. Multilevel neural foraminal narrowing. There is an 8 mm hypodense left-sided thyroid nodule. The thyroid parenchyma is diffusely heterogeneous with subcentimeter thyroid nodules. Calcified plaque of the carotid bulbs. No pneumothorax. IMPRESSION: No acute cervical spine fracture or subluxation. ACT 112: Negative or not required by law. The above report was generated using voice recognition software. It may contain grammatical, syntax or spelling errors. Electronically signed by: Shaquille Lew M.D. 05/16/2022 2:[address] 05/16/22 11:43 CT SCAN OF THE CHEST, ABDOMEN, AND PELVIS WITH IV CONTRAST CLINICAL HISTORY: Trauma. Fall. COMPARISON STUDY: Chest CT dated 11/24/2017. Abdominal CT dated 07/25/2017. TECHNIQUE: Following the IV administration of 90 of Optiray 350, CT scan of the chest, abdomen, and pelvis was performed from the thoracic inlet to the proximal femora. Images are reviewed in the axial, sagittal, and coronal planes. IV contrast was administered without complication. A dose lowering technique was utilized adhering to the principles of ALARA. The examinations are degraded by streak artifact from the arms which could not be elevated above the chest or abdomen. FINDINGS: CHEST: Thyroid: Imaged portions of the thyroid gland are normal in size and attenuation. Thoracic aorta: There is atherosclerotic calcification of the thoracic aorta, which is normal in caliber and demonstrates standard 3-vessel arch anatomy. No dissection is seen. Pulmonary vasculature: The pulmonary trunk is normal in caliber. There are no filling defects identified in the central pulmonary vessels to indicate pulmonary embolus. Note that this examination was not protocoled for evaluation of the pulmonary arteries. Heart: The heart is enlarged and without pericardial effusion. The mitral annulus is densely calcified. There are also coronary artery calcifications. Lungs and pleural spaces: Evaluation of the lung parenchyma is degraded by motion artifact. There is a small left pleural effusion with left basilar atelectasis. No pleural effusion is seen on the right. No airspace consolidation typical for pneumonia or pleural effusion is identified. The trachea and central airways are clear. Foci of scarring/atelectasis are noted throughout both lungs. Mild intralobular septal thickening suggests fluid overload. There are scattered calcified granulomas. A 4 mm calcification in a nodule in the right lower lobe on image #198 has been present dating back to 2018. A small fat-containing Bochdalek hernia is noted on the right. Mediastinum: There is no mediastinal hematoma or lymphadenopathy. Monse: Clear. Axillae: There is no axillary lymphadenopathy. Bony thorax: The skeletal structures are osteopenic. There is an impacted and comminuted fracture of the left humeral head and neck with surrounding hemorrhage. The remainder of the bony thorax appears intact. No lytic or blastic lesions are identified. Degenerative change and hyperkyphosis is noted in the thoracic spine. Soft tissues: The right breast is not identified and presumed surgically absent. ABDOMEN AND PELVIS: Liver: The contrast-enhanced liver is normal in size and demonstrates heterogeneously diminished attenuation indicating steatosis. Nodularity of the hepatic surface contour suggestive of a morphologic change of cirrhosis. There is mild intrahepatic biliary ductal dilatation. The hepatic veins and portal veins are patent. Gallbladder: Surgically absent noting clips in the gallbladder fossa. Spleen: Normal in size and attenuation. Pancreas: Unremarkable. Adrenal glands: Mild thickening of the adrenal glands is similar to previous. Kidneys: The contrast enhanced kidneys are normal in size and without hydronephrosis. The kidneys enhance symmetrically. Abdominal vasculature: The abdominal aorta is normal in course and caliber noting advanced atherosclerotic calcification. Bowel: There is mild colonic diverticulosis without CT evidence of acute diverticulitis. No bowel obstruction is seen. A tiny duodenal diverticulum is incidentally noted. The appendix is normal as visualized. Peritoneum: There is no intraperitoneal free air or abdominal ascites. There is a fat-containing umbilical hernia. Lymphadenopathy: None. Pelvic viscera: The bladder is normal as visualized. The uterus is surgically absent. No adnexal lesion is seen. Skeletal structures: The skeletal structures are osteopenic. There is an age indeterminant impacted and displaced subcapital fracture of the left proximal femur. The lumbosacral spine, bony pelvis, and right proximal femur appear intact. There is moderate lumbosacral spondylosis. No lytic or blastic lesions are seen. IMPRESSION: 1. There is an acute impacted and comminuted fracture of the left humeral head and neck with surrounding hemorrhage. 2. There is an age indeterminant impacted and displaced subcapital fracture of the left proximal femur. 3. Small left pleural effusion. 4. There is no airspace consolidation or pneumothorax. 5. There is no evidence of solid organ injury in the abdomen or pelvis. 6. The liver steatotic. Nodularity of the surface contour suggest morphologic change of cirrhosis. 7. The heart is enlarged. Intralobular septal thickening suggests mild congestive change/fluid overload. Correlate clinically. 8. Additional findings as above. ACT 112: Negative or not required by law. Electronically signed by: Waylon Berry M.D. 05/16/2022 2:[address] 05/16/22 11:43 CT SCAN OF THE BRAIN WITHOUT IV CONTRAST CLINICAL HISTORY: Trauma. Fall. COMPARISON STUDY: CT of the brain dated 07/07/2021. TECHNIQUE: Unenhanced axial CT scan of the brain is performed from the vertex to the skull base. A dose lowering technique was utilized adhering to the principles of ALARA. FINDINGS: Brain parenchyma: There is age-related involutional change noting [id number] patchy subcortical and periventricular microangiopathic disease. There is no hemorrhage, mass effect, or evidence of acute territorial ischemia by CT criteria. Galloway-white matter differentiation is preserved. No extra-axial fluid collection is seen. Ventricles, sulci, cisterns: Prominent secondary to involutional change. Intracranial vasculature: There is atherosclerotic calcification of the fili nous carotid arteries. Calvarium: The skeletal structures are osteopenic. No depressed calvarial fracture is seen. Sinuses and mastoids: The paranasal sinuses are clear. The mastoid air cells are well pneumatized. Orbits: The bony orbits are grossly intact. There are bilateral ocular lens implants. IMPRESSION: There is no hemorrhage, mass effect, or evidence of acute territorial ischemia by CT criteria. ACT 112: Negative or not required by law. Electronically signed by: Waylon Berry M.D. 05/16/2022 2:04 PM ECG Data Attestation: I personally reviewed and interpreted this ECG as follows: Indication: + weakness Rate (beats per minute): 65 Rhythm: + normal sinus ECG Intervals/blocks: + Incomplete right bundle branch block, + Prolonged QT and + Normal TX ECG [place]: + Normal ECG ST segments: + Normal ST segments ECG Findings: no PACs or no PVCs Comparison ECG Date: from (07/07/21) Change: the following changes noted (QTc has increased otherwise no acute change) Additional Comments: EKG#2: Normal sinus rhythm rate of 72. Incomplete right ovarian bundle theo block. Compared EKG #1 QTc is decreased otherwise no acute change MDM Narrative This patient comes in as described above. She fell yesterday and does have a fracture of her left humerus, elbow and hip. She will need to be admitted. Given that she has had 3 fractures. I did also order [facility] trauma CAT scans to rule out any other injuries. she does have some mild neck pain. EKG was obtained she was placed on a nurse monitoring. Given her fall and her initial elevated troponin troponin she was further observed in ED observation for arrhythmias and other cardiac abnormalities. She was COVID tested. Multiple blood testing was obtained. She was given Toradol 10 mg IV for pain management. She was reassessed frequently. Her family members are at the bedside I talked to them at length. I have reviewed outside x-rays and interpreted them as well. Her troponin is marginally elevated in light of this, I did order a second troponin and EKG was obtained initially which did not show any ischemic changes second EKG shows no change compared EKG #1. She was still having pain with the Toradol so I gave her fentanyl 25 mcg IV this helped her greatly she had no side effects she did get a little sleepy slightly and we did put her on 2 L nasal cannula she had O2 sats when she was sleep in the high 80s. CAT scan of the head shows no acute traumatic injury. Additionally reviewing the further manc[place] trauma CAT scans there is no other acute traumatic injuries beyond the known injuries fractures to the shoulder and hip. She does have a small pleural effusion on the left. No rib fractures seen. I do think she needs to be admitted for her hip fracture and further treatment and evaluation of consult with the medical team and talk to Kristen ellison on the phone about her. Orthopedics also plans on operated on her hip tomorrow Continuous cardiac monitoring: Orders placed in EMR for continuous cardiac monitoring: Upon my evaluation patient is noted to be in normal sinus rhythm with a rate of 70 Impression & Plan Closed hip fracture, Fracture of proximal end of humerus, Olecranon fracture, Left displaced femoral neck fracture, Fall Discharge Plan Visit Data Chief Complaint: Referred by Doctor Stated Complaint: BROKEN HIP AND BROKEN SHOULDER, REF BY DOC ED Provider: Ananda Verdugo Discharge Problem: Closed hip fracture, Fracture of proximal end of humerus, Olecranon fracture, Left displaced femoral neck fracture, Fall Patient Disposition: Admitted As Inpatient Discharge Instructions Interventions: ED Discharge Assessment Last Done: 05/16/22 16:51 Closed hip fracture Qualifiers: Encounter type: initial encounter Laterality: left Qualified Code(s): S72.002A - Fracture of unspecified part of neck of left femur, initial encounter for closed fracture Fracture of proximal end of humerus Qualifiers: Encounter type: subsequent encounter Fracture type: closed Fracture morphology: unspecified fracture morphology Laterality: left Fracture healing: with routine healing Qualified Code(s): S42.202D - Unspecified fracture of upper end of left humerus, subsequent encounter for fracture with routine healing Olecranon fracture Qualifiers: Encounter type: subsequent encounter Fracture type: closed Laterality: left Fall Qualifiers: Encounter type: subsequent encounter Qualified Code(s): W19.XXXD - Unspecified fall, subsequent encounter
[2022-05-16 12:51] LABS: Basophils # (auto) 0.03 K/uL (0-0.2); Basophils % (auto) 0.2 %; Hematocrit (blood only) 42.1 % (37.0-47.0); Hemoglobin 14.2 g/dl (12.0-16.0); Immature Granulocytes # (auto) 0.08 K/uL (0.01-0.20); Immature Granulocytes % (auto) 0.6 %; Lymphocytes # (auto) 0.87 K/uL (1.2-3.4); Lymphocytes % (auto) 6.5 %; Mean Corpuscular Hemoglobin 29.5 pg (25.0-34.0); Mean Corpuscular Hgb Conc 33.7 g/dL (32.0-36.0); Mean Corpuscular Volume 87.5 fL (80.0-100.0); Mean Platelet Volume 9.7 fL (9.4-12.4); Monocytes # (auto) 0.81 K/uL (0.11-0.59); Neutrophils % (auto) 86.7 %; Platelet Count 188 K/uL (130-400); RDW Coefficient of Variation 13.8 % (11.5-14.5); RDW Standard Deviation 44.5 fL (36.4-46.3); Red Blood Count 4.81 M/uL (4.20-5.40); White Blood Count 13.39 K/ul (4.8-10.8)
[2022-05-16 13:09] LABS: Alanine Aminotransferase 29 U/L (7-52); Albumin Globulin Ratio 1.4 (0.9-2); Alkaline Phosphatase 65 U/L (34-104); Anion Gap 6 (3-11); Aspartate Aminotransferase 30 U/L (13-39); BUN Creatinine Ratio 22.5 (10-20); Blood Urea Nitrogen 23 mg/dl (6-23); Calcium 9.2 mg/dl (8.5-10.1); Carbon Dioxide 33 mmol/L (21-32); Chloride 100 mmol/L (98-107); Est GFR (African American) 58.1 ml/min; Est GFR (Non-African American) 50.1 ml/min; Globulin 2.9 gm/dl (2.5-4.0); Glucose 114 mg/dl (70-99(Fasting)); Lipase 5 U/L (11-82); Magnesium 2.1 mg/dl (1.7-2.4); Potassium 3.9 mmol/L (3.5-5.1); Sodium 139 mmol/L (136-145); Total Protein 6.9 gm/dl (6.0-8.3)
[2022-05-16] MEDS ORDERED: fentaNYL citrate PF 100 MCG/2 ML VIAL IV ONE (13:13)
[2022-05-16 13:14] LABS: Troponin I High Sensitivity 15.2 pg/ml (0-14)
--- NOTE | 2022-05-16 13:15 | Orthopedic Consultation ---
Date of Service May 16, 2022 Assessment & Plan (1) Left displaced femoral neck fracture: Discussed with the patient surgical fixation of the hip fracture. She is fairly active, ambulatory, lives alone. We discussed non surgical options as well. After discussion options with the patient she has decided to procede with a left bipolar hip replacement. She will most likely be placed on the operative schedule schedule tomorrow. Surgery will be done by Dr. Clemons. Plan was discussed with Dr. Wheat and all parties were in agreement. History of Present Illness Reason for Consultation: . Requesting Physician: . Patient is an 86 y/o female who sustained a fall yesterday while getting out of a car. She initially stated that she land hard on her left side. She was taken to [facility] ER. She sustained a proximal humerus fracture as well as an olecranon fracture. It was determined that it was non operative and discharged to home with a sling and orthodepics follow up. She did follow up in the ortho office today but was struggling to ambulate due to new onset left hip pain. Xrays taken in the office showed a displaced femoral neck fracture. She was again sent to [facility] ER and then admitted by medicine to the floor. Patient states that she ate this morning around 7am. Allergies Allergy/AdvReac Type Severity Reaction Status Date / Time adhesive Allergy Intermediate rash Verified 05/15/22 18:20 codeine Allergy Intermediate ITCHING Verified 05/15/22 18:20 oxycodone Allergy Intermediate ITCHING Verified 05/15/22 18:20 Penicillins Allergy Intermediate ITCHING Verified 05/15/22 18:20 Home Medications Medication Instructions Recorded Confirmed Type aspirin 81 mg tablet,delayed 81 mg PO QAM 07/07/21 05/15/22 History release (Kathie Low Dose Aspirin) escitalopram oxalate 10 mg tablet 10 mg PO QAM 07/07/21 05/15/22 History furosemide 20 mg tablet 40 mg PO QAM 07/07/21 05/15/22 History meclizine 25 mg tablet 25 mg PO TID PRN Dizziness 07/07/21 05/15/22 History omeprazole 20 mg capsule,delayed 20 mg PO QAM 07/07/21 05/15/22 History release verapamil 120 mg tablet,extended 120 mg PO AMPM 07/07/21 05/15/22 History release coconut oil 1,000 mg capsule 1,000 mg PO DAILY 05/15/22 05/15/22 History cyanocobalamin (vitamin B-12) 1,000 mcg PO DAILY 05/15/22 05/15/22 History 1,000 mcg tablet (Vitamin B-12) ergocalciferol (vitamin D2) 1,250 1,250 mcg PO 2XWK 05/15/22 05/15/22 History mcg (50,000 unit) capsule (Vitamin D2) losartan 50 mg tablet 50 mg PO QAM 05/15/22 05/15/22 History oxycodone-acetaminophen 5 mg-325 1 tab PO Q6H PRN pain #10 tabs 05/15/22 Rx mg tablet (Percocet) oxycodone-acetaminophen 5 mg-325 1 tab PO Q6H PRN pain #10 tabs 05/15/22 Rx mg tablet (Percocet) simethicone 80 mg chewable tablet 80 mg PO DIRECTED PRN 05/15/22 05/15/22 History GAS/BLOATING/INDIGESTION Past Med/Surg History Social History Smoking Status: Never smoker Preferred Language: Austrian Feels Safe at Home: Yes Review of Systems All systems reviewed & are unremarkable except as noted in HPI & below. Physical Exam left hip pain with log roll. She is laying comfortable in bed. Left leg is shortened and internally rotated. Neurovascularly intact. Results & Data Results & Data Laboratory Results . Diagnostic Findings . PG Care Time/CCT Total # of Minutes Spent Total Time Spent with Patient: Total time spent is greater than 50% in coordination of care (as documented) at patient's floor/unit and/or counseling patient: Coding Level of Care Code 55823 OFFICE CONSULT LVL Diagnoses Left displaced femoral neck fracture S72.002A
[2022-05-16] MEDS ORDERED: OPTIRAY 350 100ml IV ONE (14:01)
--- NOTE | 2022-05-16 14:06 | CT Scan Report ---
CT SCAN OF THE BRAIN WITHOUT IV CONTRAST CLINICAL HISTORY: Trauma. Fall. COMPARISON STUDY: CT of the brain dated 07/07/2021. TECHNIQUE: Unenhanced axial CT scan of the brain is performed from the vertex to the skull base. A do se lowering technique was utilized adhering to the principles of ALARA. FINDINGS: Brain parenchyma: There is age-related involutional change noting [id number] patchy subcortical and periventricular microangiopathic disease. There is no hemorrhage, mass effect, or evidence of ac [place] ischemia by CT criteria. Galloway-white matter differentiation is preserved. No extra-axi al fluid collection is seen. Ventricles, sulci, cisterns: Prominent secondary to involutional change. Intracranial vasculature: There is atherosclerotic calcification of the cavernous carotid arteries. Calvarium: The skeletal structures are osteopenic. No depressed calvarial fracture is seen. Sinuses and mastoids: The paranasal sinuses are clear. The mastoid air cells are well pneumatized. Orbits: The bony orbits are grossly intact. There are bilateral ocular lens implants. IMPRESSION: There is no hemorrhage, mass effect, or evidence of acute territorial ischemia by CT chrissy dickerson. ACT 112: Negative or not required by law. Electronically signed by: Wyalon Berry M.D. 05/16/2022 2:04 PM
--- NOTE | 2022-05-16 14:24 | CT Scan Report ---
CT SCAN OF THE CHEST, ABDOMEN, AND PELVIS WITH IV CONTRAST CLINICAL HISTORY: Trauma. Fall. COMPARISON STUDY: Chest CT dated 11/24/2017. Abdominal CT dated 07/25/2017. TECHNIQUE: Following the IV administration of 90 of Optiray 350, CT scan of the chest, abdomen, and p thomas was performed from the thoracic inlet to the proximal femora. Images are reviewed in the axial, sagittal, and coronal planes. IV contrast was administered without complication. A dose lowering te chnique was utilized adhering to the principles of ALARA. The examinations are degraded by streak art ifact from the arms which could not be elevated above the chest or abdomen. FINDINGS: CHEST: Thyroid: Imaged portions of the thyroid gland are normal in size and attenuation. Thoracic aorta: There is atherosclerotic calcification of the thoracic aorta, which is normal in jaci camilla and demonstrates standard 3-vessel arch anatomy. No dissection is seen. Pulmonary vasculature: The pulmonary trunk is normal in caliber. There are no filling defects identif ied in the central pulmonary vessels to indicate pulmonary embolus. Note that this examination was no t protocoled for evaluation of the pulmonary arteries. Heart: The heart is enlarged and without pericardial effusion. The mitral annulus is densely calcifie d. There are also coronary artery calcifications. Lungs and pleural spaces: Evaluation of the lung parenchyma is degraded by motion artifact. There is a small left pleural effusion with left basilar atelectasis. No pleural effusion is seen on the right . No airspace consolidation typical for pneumonia or pleural effusion is identified. The trachea and central airways are clear. Foci of scarring/atelectasis are noted throughout both lungs. Mild intralo bular septal thickening suggests fluid overload. There are scattered calcified granulomas. A 4 mm julito cification in a nodule in the right lower lobe on image #198 has been present dating back to 2018. A small fat-containing Bochdalek hernia is noted on the right. Mediastinum: There is no mediastinal hematoma or lymphadenopathy. Monse: Clear. Axillae: There is no axillary lymphadenopathy. Bony thorax: The skeletal structures are osteopenic. There is an impacted and comminuted fracture of the left humeral head and neck with surrounding hemorrhage. The remainder of the bony thorax appears intact. No lytic or blastic lesions are identified. Degenerative change and hyperkyphosis is noted in the thoracic spine. Soft tissues: The right breast is not identified and presumed surgically absent. ABDOMEN AND PELVIS: Liver: The contrast-enhanced liver is normal in size and demonstrates heterogeneously diminished atte nuation indicating steatosis. Nodularity of the hepatic surface contour suggestive of a morphologic c hange of cirrhosis. There is mild intrahepatic biliary ductal dilatation. The hepatic veins and meet l veins are patent. Gallbladder: Surgically absent noting clips in the gallbladder fossa. Spleen: Normal in size and attenuation. Pancreas: Unremarkable. Adrenal glands: Mild thickening of the adrenal glands is similar to previous. Kidneys: The contrast enhanced kidneys are normal in size and without hydronephrosis. The kidneys enh ance symmetrically. Abdominal vasculature: The abdominal aorta is normal in course and caliber noting advanced atheroscle rotic calcification. Bowel: There is mild colonic diverticulosis without CT evidence of acute diverticulitis. No bowel obs truction is seen. A tiny duodenal diverticulum is incidentally noted. The appendix is normal as visu alized. Peritoneum: There is no intraperitoneal free air or abdominal ascites. There is a fat-containing umbi lical hernia. Lymphadenopathy: None. Pelvic viscera: The bladder is normal as visualized. The uterus is surgically absent. No adnexal lesi on is seen. Skeletal structures: The skeletal structures are osteopenic. There is an age indeterminant impacted a nd displaced subcapital fracture of the left proximal femur. The lumbosacral spine, bony pelvis, and right proximal femur appear intact. There is moderate lumbosacral spondylosis. No lytic or blastic le sions are seen. IMPRESSION: 1. There is an acute impacted and comminuted fracture of the left humeral head and neck with surround ing hemorrhage. 2. There is an age indeterminant impacted and displaced subcapital fracture of the left proximal femu r. 3. Small left pleural effusion. 4. There is no airspace consolidation or pneumothorax. 5. There is no evidence of solid organ injury in the abdomen or pelvis. 6. The liver steatotic. Nodularity of the surface contour suggest morphologic change of cirrhosis. 7. The heart is enlarged. Intralobular septal thickening suggests mild congestive change/fluid overlo ad. Correlate clinically. 8. Additional findings as above. ACT 112: Negative or not required by law. Electronically signed by: Waylon Berry M.D. 05/16/2022 2:22 PM
--- NOTE | 2022-05-16 14:28 | CT Scan Report ---
CT cervical spine wo con CT DOSE: 2161.29 mGy.cm CLINICAL HISTORY: 86 years-old Female with fall. Acute neck pain status post fall COMPARISON: 07/07/2021 TECHNIQUE: Multiple axial CT images of the cervical spine were obtained without contrast. A dose low ering technique was utilized adhering to the principles of ALARA. FINDINGS: There is degenerative partial bony fusion at the C2-C3 level. Multilevel intervertebral dis c space narrowing, severe at C5-C6 and C6 or C7. Multilevel moderate to severe facet arthrosis. Multi level neural foraminal narrowing. There is an 8 mm hypodense left-sided thyroid nodule. The thyroid p arenchyma is diffusely heterogeneous with subcentimeter thyroid nodules. Calcified plaque of the sharp tid bulbs. No pneumothorax. IMPRESSION: No acute cervical spine fracture or subluxation. ACT 112: Negative or not required by law. The above report was generated using voice recognition software. It may contain grammatical, syntax o r spelling errors. Electronically signed by: Shaquille Lew M.D. 05/16/2022 2:26 PM
--- NOTE | 2022-05-16 15:10 | History & Physical Report ---
Date of Service May 16, 2022 Assessment & Plan (1) Closed hip fracture: Plan: [facility] Patient was seen in the ED yesterday after sustaining a mechanical fall. Patient was brought to the ED and found to have a left humeral head and left olecranon fracture. Patient was placed in a sling and discharged home. Upon returning home, patient noticed that she was having left hip pain and had much difficulty walking. Patient was seen at outpatient ortho office today and left hip xray was obtained showing a fracture. CT abd/pelvis shows impacted and displaced subcapital fracture of the left proximal femur Evaluated by orthopedics in the ED, planning for left bipolar hip replacement tomorrow Pain control with bowel regimen PT/OT when appropriate EKG and CT chest reviewed GSCRI 0.3%, patient considered low/acceptable risk to proceed to surgery Given history of paroxysmal A-fib, recommend formal anticoagulation postoperatively (2) Left displaced femoral neck fracture: (3) Olecranon fracture: Plan: 05/15/2022 left shoulder x-ray: Comminuted fracture of the humeral head with at least 4 fragments, some impaction is seen. 05/15/2022 left elbow x-ray: Olecranon fracture with associated soft tissue swelling and joint effusion. Discussed plan with orthopedics. Proximal shoulder fracture nonoperative, sling advised. Plan for olecranon fracture pending. (4) Paroxysmal A-fib: Plan: History of paroxysmal A-fib, not anticoagulated EKG demonstrates NSR today Continue verapamil for rate control Consider initiation of anticoagulation postop (5) HTN (hypertension): Plan: BP controlled, continue losartan DVT PROPHYLAXIS SCDs due to planned surgical procedure tomorrow I spent a total of 75 minutes coordinating, documenting, and providing care for this patient excluding time spent in the performance of separately billed services. This included personally reviewing all current laboratories and imaging studies, medication reconciliation, outpatient chart review, and discussion with specialists. History of Present Illness Chief Complaint: Left Hip Pain Primary Care Provider: Dr. Luzma Brooke 86 year old female with PMH dyslipidemia, paroxysmal a. fib (not anticoagulated), HTN, GERD, IBS, Parkinson's, history of breast cancer s/p left mastectomy, and other problems listed below who presents to the ED for evaluation of left hip pain. History obtained by Dr. Ezwekem from patient and son/daughter in law who are at the bedside and my personal review of outpatient PCP, cardiology, orthopedic notes. Patient was seen in the ED yesterday after sustaining a mechanical fall. Patient had gotten out of the car to go into a store and when she went to turn around, she fell to the ground. Patient was brought to the ED and found to have a left humeral head and left olecranon fracture. Patient was placed in a sling and discharged home. Upon returning home, patient noticed that she was having left hip pain and had much difficulty walking. Patient was seen at outpatient ortho office today and left hip xray was obtained showing a fracture. She was sent back to the ED for further eval. Patient reports she otherwise has been feeling well recently. Denies chest pain, palpitations, shortness of breath. No abdominal pain, nausea, vomiting, or d iarrhea. Denies fever and chills. No urinary symptoms. In the ED, head, c-spine, chest, abd/pelvis CT are all unremarkable for additional acute injuries. Patient was given IV Fentanyl and IV Ketoralac. Allergies Allergy/AdvReac Type Severity Reaction Status Date / Time adhesive Allergy Intermediate rash Verified 05/15/22 18:20 codeine Allergy Intermediate ITCHING Verified 05/15/22 18:20 oxycodone Allergy Intermediate ITCHING Verified 05/15/22 18:20 Penicillins Allergy Intermediate ITCHING Verified 05/15/22 18:20 Home Medications Medication Instructions Recorded Confirmed Type aspirin 81 mg tablet,delayed 81 mg PO QAM 07/07/21 05/16/22 History release (Kathei Low Dose Aspirin) escitalopram oxalate 10 mg tablet 10 mg PO QAM 07/07/21 05/16/22 History furosemide 20 mg tablet 20 mg PO QAM 07/07/21 05/16/22 History meclizine 25 mg tablet 25 mg PO TID PRN Dizziness 07/07/21 05/16/22 History omeprazole 20 mg capsule,delayed 20 mg PO QAM 07/07/21 05/16/22 History release verapamil 120 mg tablet,extended 120 mg PO AMPM 07/07/21 05/16/22 History release cyanocobalamin (vitamin B-12) 1,000 mcg PO DAILY 05/15/22 05/16/22 History 1,000 mcg tablet (Vitamin B-12) losartan 50 mg tablet 50 mg PO HS 05/15/22 05/16/22 History Past Med/Surg History Medical History Depression Dyslipidemia GERD (gastroesophageal reflux disease) HTN (hypertension) IBS (irritable bowel syndrome) Parkinsons disease Paroxysmal A-fib Surgical History History of cholecystectomy History of right mastectomy Social History Smoking Status: Never smoker Second Hand Exposure: No; Do You Dip or Chew Tobacco: No; Tobacco Cessation Education Requested by Patient: No Hx Alcohol Use: No Hx Substance Use: No Preferred Language: Kenyan Communication Ability: Effective Weight Analyst Required: No Beliefs That Will Affect Care: None Current Living Situation: Alone Current Living Situation Comment: lives next to son and daughter in law Other Information That Helps Us Care for You: No Feels Safe at Home: Yes Safety Concerns: Feels Safe At This Time Assistive Devices: Cane Review of Systems Review of Systems: ROS per HPI, all other systems reviewed and negative Physical Exam Physical Exam: please refer to Dr. Rai's addendum for physical exam Results & Data Results & Data ([facility]) Vital Signs (Past 12 Hours) Vital Signs Temp Pulse Pulse Resp BP Pulse Ox O2 Del Method 05/16/22 13:59 99 Nasal Cannula 05/16/22 13:59 86 L Room Air 05/16/22 13:00 76 20 98 Room Air 05/16/22 11:22 36.6 C 67 20 163/64 H 91 Room Air O2 Flow Rate 05/16/22 13:59 2 05/16/22 13:59 05/16/22 13:00 05/16/22 11:22 Laboratory Results Short CBC 05/16/22 Range/Units 12:31 WBC 13.39 H (4.8-10.8) K/ul Hgb 14.2 (12.0-16.0) g/dl Hct 42.1 (37.0-47.0) % Plt Count 188 (130-400) K/uL BMP 05/16/22 12:31 Sodium 139 Potassium 3.9 Chloride 100 Carbon Dioxide 33 H BUN 23 Creatinine 1.02 Glucose 114 H Calcium 9.2 Liver Function 05/16/22 Range/Units 12:31 Total Bilirubin 1.0 (0.2-1.0) mg/dl AST 30 (13-39) U/L ALT 29 (7-52) U/L Alkaline Phosphatase 65 (34-104) U/L Albumin 4.0 (3.4-5.0) gm/dl Diagnostic Findings Abdomen/Pelvis CT 05/16/22 11:43 CT SCAN OF THE CHEST, ABDOMEN, AND PELVIS WITH IV CONTRAST CLINICAL HISTORY: Trauma. Fall. COMPARISON STUDY: Chest CT dated 11/24/2017. Abdominal CT dated 07/25/2017. TECHNIQUE: Following the IV administration of 90 of Optiray 350, CT scan of the chest, abdomen, and pelvis was performed from the thoracic inlet to the proximal femora. Images are reviewed in the axial, sagittal, and coronal planes. IV contrast was administered without complication. A dose lowering technique was utilized adhering to the principles of ALARA. The examinations are degraded by streak artifact from the arms which could not be elevated above the chest or abdomen. FINDINGS: CHEST: Thyroid: Imaged portions of the thyroid gland are normal in size and attenuation. Thoracic aorta: There is atherosclerotic calcification of the thoracic aorta, which is normal in caliber and demonstrates standard 3-vessel arch anatomy. No dissection is seen. Pulmonary vasculature: The pulmonary trunk is normal in caliber. There are no filling defects identified in the central pulmonary vessels to indicate pulmonary embolus. Note that this examination was not protocoled for evaluation of the pulmonary arteries. Heart: The heart is enlarged and without pericardial effusion. The mitral annulus is densely calcified. There are also coronary artery calcifications. Lungs and pleural spaces: Evaluation of the lung parenchyma is degraded by motion artifact. There is a small left pleural effusion with left basilar atelectasis. No pleural effusion is seen on the right. No airspace consolidation typical for pneumonia or pleural effusion is identified. The trachea and central airways are clear. Foci of scarring/atelectasis are noted throughout both lungs. Mild intralobular septal thickening suggests fluid overload. There are scattered calcified granulomas. A 4 mm calcification in a nodule in the right lower lobe on image #198 has been present dating back to 2018. A small fat-containing Boc hdalek hernia is noted on the right. Mediastinum: There is no mediastinal hematoma or lymphadenopathy. Monse: Clear. Axillae: There is no axillary lymphadenopathy. Bony thorax: The skeletal structures are osteopenic. There is an impacted and comminuted fracture of the left humeral head and neck with surrounding hemorrhage. The remainder of the bony thorax appears intact. No lytic or blastic lesions are identified. Degenerative change and hyperkyphosis is noted in the thoracic spine. Soft tissues: The right breast is not identified and presumed surgically absent. ABDOMEN AND PELVIS: Liver: The contrast-enhanced liver is normal in size and demonstrates heterogeneously diminished attenuation indicating steatosis. Nodularity of the hepatic surface contour suggestive of a morphologic change of cirrhosis. There is mild intrahepatic biliary ductal dilatation. The hepatic veins and portal veins are patent. Gallbladder: Surgically absent noting clips in the gallbladder fossa. Spleen: Normal in size and attenuation. Pancreas: Unremarkable. Adrenal glands: Mild thickening of the adrenal glands is similar to previous. Kidneys: The contrast enhanced kidneys are normal in size and without hydronephrosis. The kidneys enhance symmetrically. Abdominal vasculature: The abdominal aorta is normal in course and caliber noting advanced atherosclerotic calcification. Bowel: There is mild colonic diverticulosis without CT evidence of acute diverticulitis. No bowel obstruction is seen. A tiny duodenal diverticulum is incidentally noted. The appendix is normal as visualized. Peritoneum: There is no intraperitoneal free air or abdominal ascites. There is a fat-containing umbilical hernia. Lymphadenopathy: None. Pelvic viscera: The bladder is normal as visualized. The uterus is surgically absent. No adnexal lesion is seen. Skeletal structures: The skeletal structures are osteopenic. There is an age indeterminant impacted and displaced subcapital fracture of the left proximal femur. The lumbosacral spine, bony pelvis, and right proximal femur appear intact. There is moderate lumbosacral spondylosis. No lytic or blastic lesions are seen. IMPRESSION: 1. There is an acute impacted and comminuted fracture of the left humeral head and neck with surrounding hemorrhage. 2. There is an age indeterminant impacted and displaced subcapital fracture of the left proximal femur. 3. Small left pleural effusion. 4. There is no airspace consolidation or pneumothorax. 5. There is no evidence of solid organ injury in the abdomen or pelvis. 6. The liver steatotic. Nodularity of the surface contour suggest morphologic change of cirrhosis. 7. The heart is enlarged. Intralobular septal thickening suggests mild congestive change/fluid overload. Correlate clinically. 8. Additional findings as above. ACT 112: Negative or not required by law. Electronically signed by: Waylon Berry M.D. 05/16/2022 2:[address] 05/16/22 11:43 CT cervical spine wo con CT DOSE: 2161.29 mGy.cm CLINICAL HISTORY: 86 years-old Female with fall. Acute neck pain status post fall COMPARISON: 07/07/2021 TECHNIQUE: Multiple axial CT images of the cervical spine were obtained without contrast. A dose lowering technique was utilized adhering to the principles of ALARA. FINDINGS: There is degenerative partial bony fusion at the C2-C3 level. Multilevel intervertebral disc space narrowing, severe at C5-C6 and C6 or C7. Multilevel moderate to severe facet arthrosis. Multilevel neural foraminal narrowing. There is an 8 mm hypodense left-sided thyroid nodule. The thyroid parenchyma is diffusely heterogeneous with subcentimeter thyroid nodules. Calcified plaque of the carotid bulbs. No pneumothorax. IMPRESSION: No acute cervical spine fracture or subluxation. ACT 112: Negative or not required by law. The above report was generated using voice recognition software. It may contain grammatical, syntax or spelling errors. Electronically signed by: Shaquille Lew M.D. 05/16/2022 2:[address] 05/16/22 11:43 CT SCAN OF THE CHEST, ABDOMEN, AND PELVIS WITH IV CONTRAST CLINICAL HISTORY: Trauma. Fall. COMPARISON STUDY: Chest CT dated 11/24/2017. Abdominal CT dated 07/25/2017. TECHNIQUE: Following the IV administration of 90 of Optiray 350, CT scan of the chest, abdomen, and pelvis was performed from the thoracic inlet to the proximal femora. Images are reviewed in the axial, sagittal, and coronal planes. IV contrast was administered without complication. A dose lowering technique was utilized adhering to the principles of ALARA. The examinations are degraded by streak artifact from the arms which could not be elevated above the chest or abdomen. FINDINGS: CHEST: Thyroid: Imaged portions of the thyroid gland are normal in size and attenuation. Thoracic aorta: There is atherosclerotic calcification of the thoracic aorta, which is normal in caliber and demonstrates standard 3-vessel arch anatomy. No dissection is seen. Pulmonary vasculature: The pulmonary trunk is normal in caliber. There are no filling defects identified in the central pulmonary vessels to indicate pulmonary embolus. Note that this examination was not protocoled for evaluation of the pulmonary arteries. Heart: The heart is enlarged and without pericardial effusion. The mitral annulus is densely calcified. There are also coronary artery calcifications. Lungs and pleural spaces: Evaluation of the lung parenchyma is degraded by motion artifact. There is a small left pleural effusion with left basilar atelectasis. No pleural effusion is seen on the right. No airspace consolidation typical for pneumonia or pleural effusion is identified. The trachea and central airways are clear. Foci of scarring/atelectasis are noted throughout both lungs. Mild intralobular septal thickening suggests fluid overload. There are scattered calcified granulomas. A 4 mm calcification in a nodule in the right lower lobe on image #198 has been present dating back to 2018. A small fat-containing Bochdalek hernia is noted on the right. Mediastinum: There is no mediastinal hematoma or lymphadenopathy. Monse: Clear. Axillae: There is no axillary lymphadenopathy. Bony thorax: The skeletal structures are osteopenic. There is an impacted and comminuted fracture of the left humeral head and neck with surrounding hemorrhage. The remainder of the bony thorax appears intact. No lytic or blastic lesions are identified. Degenerative change and hyperkyphosis is noted in the thoracic spine. Soft tissues: The right breast is not identified and presumed surgically absent. ABDOMEN AND PELVIS: Liver: The contrast-enhanced liver is normal in size and demonstrates heterogeneously diminished attenuation indicating steatosis. Nodularity of the hepatic surface contour suggestive of a morphologic change of cirrhosis. There is mild intrahepatic biliary ductal dilatation. The hepatic veins and portal veins are patent. Gallbladder: Surgically absent noting clips in the gallbladder fossa. Spleen: Normal in size and attenuation. Pancreas: Unremarkable. Adrenal glands: Mild thickening of the adrenal glands is similar to previous. Kidneys: The contrast enhanced kidneys are normal in size and without hydronephrosis. The kidneys enhance symmetrically. Abdominal vasculature: The abdominal aorta is normal in course and caliber noting advanced atherosclerotic calcification. Bowel: There is mild colonic diverticulosis without CT evidence of acute diverticulitis. No bowel obstruction is seen. A tiny duodenal diverticulum is incidentally noted. The appendix is normal as visualized. Peritoneum: There is no intraperitoneal free air or abdominal ascites. There is a fat-containing umbilical hernia. Lymphadenopathy: None. Pelvic viscera: The bladder is normal as visualized. The uterus is surgically absent. No adnexal lesion is seen. Skeletal structures: The skeletal structures are osteopenic. There is an age indeterminant impacted and displaced subcapital fracture of the left proximal femur. The lumbosacral spine, bony pelvis, and right proximal femur appear intact. There is moderate lumbosacral spondylosis. No lytic or blastic lesions are seen. IMPRESSION: 1. There is an acute impacted and comminuted fracture of the left humeral head and neck with surrounding hemorrhage. 2. There is an age indeterminant impacted and displaced subcapital fracture of the left proximal femur. 3. Small left pleural effusion. 4. There is no airspace consolidation or pneumothorax. 5. There is no evidence of solid organ injury in the abdomen or pelvis. 6. The liver steatotic. Nodularity of the surface contour suggest morphologic change of cirrhosis. 7. The heart is enlarged. Intralobular septal thickening suggests mild congestive change/fluid overload. Correlate clinically. 8. Additional findings as above. ACT 112: Negative or not required by law. Electronically signed by: Waylon Berry M.D. 05/16/2022 2:[address] 05/16/22 11:43 CT SCAN OF THE BRAIN WITHOUT IV CONTRAST CLINICAL HISTORY: Trauma. Fall. COMPARISON STUDY: CT of the brain dated 07/07/2021. TECHNIQUE: Unenhanced axial CT scan of the brain is performed from the vertex to the skull base. A dose lowering technique was utilized adhering to the principles of ALARA. FINDINGS: Brain parenchyma: There is age-related involutional change noting [id number] patchy subcortical and periventricular microangiopathic disease. There is no hemorrhage, mass effect, or evidence of acute territorial ischemia by CT criteria. Galloway-white matter differentiation is preserved. No extra-axial fluid collection is seen. Ventricles, sulci, cisterns: Prominent secondary to involutional change. Intracranial vasculature: There is atherosclerotic calcification of the cavernous carotid arteries. Calvarium: The skeletal structures are osteopenic. No depressed calvarial fracture is seen. Sinuses and mastoids: The paranasal sinuses are clear. The mastoid air cells are well pneumatized. Orbits: The bony orbits are grossly intact. There are bilateral ocular lens implants. IMPRESSION: There is no hemorrhage, mass effect, or evidence of acute territorial ischemia by CT criteria. ACT 112: Negative or not required by law. Electronically signed by: Waylon Berry M.D. 05/16/2022 2:04 PM Code Status & VTE Plan Code Status Patient is a full code as per Dr. Rai's discussion with the patient and son/daughter in law who are at the bedside. VTE Prophylaxis Plan VTE Prophylaxis will be ordered: Yes Supervising Physician Co-Signing Physician Notes History and physical exam performed by me. History notable for 86-year-old woman with A-fib not on anticoagulation, hypertension, Parkinson's, breast cancer status post surgery and chemo who presents today after a fall yesterday. Patient had a ground-level fall after getting out of car when a relative was taking had to the store. She usually uses a cane but did not use one yesterday as she was feeling good. She fell on her left side. Denied hitting head. Denied loss of consciousness. Patient was carried by EMS from the to the ER. Was evaluated and noted to have left Olecranon fracture with joint effusion, comminuted fracture of the left humeral head. Patient and family noted that patient did not complain of hip pain at the time as she was carried on a stretcher/bed all through from the site of fall to the hospital. She only started complaining of pain when she was being discharged from the ER and wanted to walk. Pain had worsened especially in the left hip with activity. He was seen by Ortho in the clinic today and sent to the ER. Currently denies any other complaints besides pain in the left upper extremity and left hip. On exam, General: Elderly woman in no distress Eyes: PERRL, conjunctivae normal, not pale, anicteric sclerae, EOM intact bilaterally ENMT: External ear and nose normal, oropharynx normal Respiratory: Normal respiratory effort, no respiratory distress, lungs clear to auscultation, no crackles and no wheezes Cardiovascular: RRR S1 S2 Gastrointestinal (Abdomen): Abdomen is not distended, soft, non-tender to palpation, no guarding, no palpable hepatosplenomegaly, normal bowel sounds Musculoskeletal: Left UE in sling. tenderness over left hip. Left LE is shortened and externally rotated Neurologic: Alert and oriented x 3, No focal weakness, sensation grossly intact Psychiatric: Euthymic affect Labs notable for WBC of 13.3. Head CT did not show any acute abnormality CT chest noted acute impacted angulated fracture of the left humeral head and neck with surrounding hemorrhage. CT abdomen pelvis noted age-indeterminate impacted and displaced subcapital fracture of the left proximal femur. Ortho has evaluated and plan to take patient to the OR tomorrow morning for hip fracture. We will follow-up with Ortho about plans for humeral fracture/olecranon fracture Pain control. Scheduled Tylenol. As needed oxycodone N.p.o. past midnight for OR tomorrow. We will get PT/OT after surgery. Hold home aspirin for now. Considering patient history of A-fib and going to get hip surgery, patient will need anticoagulation after surgery for VTE prophylaxis. Other plans as detailed by Kristen ROGEL . (1) Closed hip fracture Encounter type: initial encounter Laterality: left Qualified Code(s): S72.002A - Fracture of unspecified part of neck of left femur, initial encounter for closed fracture (3) Olecranon fracture Encounter type: subsequent encounter Fracture type: closed Laterality: left
--- NOTE | 2022-05-16 15:28 | Communication Note ---
Date of Service: May 16, 2022 History and physical exam performed by me. History notable for 86-year-old woman with A-fib not on anticoagulation, hypertension, Parkinson's, breast cancer status post surgery and chemo who presents today after a fall yesterday. Patient had a ground-level fall after getting out of car when a relative was taking had to the store. She usually uses a cane but did not use one yesterday as she was feeling good. She fell on her left side. Denied hitting head. Denied loss of consciousness. Patient was carried by EMS from the to the ER. Was evaluated and noted to have left Olecranon fracture with joint effusion, comminuted fracture of the left humeral head. Patient and family noted that patient did not complain of hip pain at the time as she was carried on a stretcher/bed all through from the site of fall to the hospital. She only started complaining of pain when she was being discharged from the ER and wanted to walk. Pain had worsened especially in the left hip with activity. He was seen by Ortho in the clinic today and sent to the ER. Currently denies any other complaints besides pain in the left upper extremity and left hip. On exam, General: Elderly woman in no distress Eyes: PERRL, conjunctivae normal, not pale, anicteric sclerae, EOM intact bilaterally ENMT: External ear and nose normal, oropharynx normal Respiratory: Normal respiratory effort, no respiratory distress, lungs clear to auscultation, no crackles and no wheezes Cardiovascular: RRR S1 S2 Gastrointestinal (Abdomen): Abdomen is not distended, soft, non-tender to palpation, no guarding, no palpable hepatosplenomegaly, normal bowel sounds Musculoskeletal: Left UE in sling. tenderness over left hip. Left LE is shortened and externally rotated Neurologic: Alert and oriented x 3, No focal weakness, sensation grossly intact Psychiatric: Euthymic affect Labs notable for WBC of 13.3. Head CT did not show any acute abnormality CT chest noted acute impacted angulated fracture of the left humeral head and neck with surrounding hemorrhage. CT abdomen pelvis noted age-indeterminate impacted and displaced subcapital fracture of the left proximal femur. Ortho has evaluated and plan to take patient to the OR tomorrow morning for hip fracture. We will follow-up with Ortho about plans for humeral fracture/olecranon fracture Pain control. Scheduled Tylenol. As needed oxycodone N.p.o. past midnight for OR tomorrow. We will get PT/OT after surgery. Hold home aspirin for now. Considering patient history of A-fib and going to get hip surgery, patient will need anticoagulation after surgery for VTE prophylaxis. Other plans as detailed by Kristen ROGEL .
[2022-05-16 15:50] LABS: INR 1.1 (0.9-1.1); Partial Thromboplastin Time 26.2 Seconds (21.0-31.0)
--- NOTE | 2022-05-16 17:15 | Anesthesiology Consultation ---
Date of Service May 16, 2022 Assessment & Plan Chart Review Chart Review: Acceptable Risk for Surgery and Patient NOT seen in Pre Admission Testing Consults Requested none ASA ASA3 Proposed Anesthesia Anesthesia Type: General History Surgery Operation Date: 05/17/22 07:30 Proposed Procedures p Left Cemented Bipolar Hip - Dusty Clemons MD Height/Weight Height: 5 ft 8 in Weight: 61.235 kg Allergies Allergy/AdvReac Type Severity Reaction Status Date / Time adhesive Allergy Intermediate rash Verified 05/15/22 18:20 codeine Allergy Intermediate ITCHING Verified 05/15/22 18:20 oxycodone Allergy Intermediate ITCHING Verified 05/15/22 18:20 Penicillins Allergy Intermediate ITCHING Verified 05/15/22 18:20 Medications Home Medications Medication Instructions Recorded Confirmed Last Taken aspirin 81 mg tablet,delayed 81 mg PO QAM 07/07/21 05/16/22 07/07/21 release (Kathie Low Dose Aspirin) escitalopram oxalate 10 mg tablet 10 mg PO QAM 07/07/21 05/16/22 07/07/21 furosemide 20 mg tablet 20 mg PO QAM 07/07/21 05/16/22 07/07/21 meclizine 25 mg tablet 25 mg PO TID PRN Dizziness 07/07/21 05/16/22 Unknown omeprazole 20 mg capsule,delayed 20 mg PO QAM 07/07/21 05/16/22 07/07/21 release verapamil 120 mg tablet,extended 120 mg PO AMPM 07/07/21 05/16/22 07/07/21 release cyanocobalamin (vitamin B-12) 1,000 mcg PO DAILY 05/15/22 05/16/22 Unknown 1,000 mcg tablet (Vitamin B-12) losartan 50 mg tablet 50 mg PO HS 05/15/22 05/16/22 Unknown Past Medical History Medical History Depression Dyslipidemia GERD (gastroesophageal reflux disease) HTN (hypertension) IBS (irritable bowel syndrome) Parkinsons disease Paroxysmal A-fib Exercise / Class Metabolic Activity III < 4 Walking/Shop/Light housework Past Surgical History Surgical History History of cholecystectomy History of right mastectomy Past Anesthesia History No Hx of Anesthesia Complications and No Family Hx of Anesthesia Complications History of PONV No Hx of PONV and No Hx of Motion Sickness Social History Smoking Status: Never smoker Physical Exam Vital Signs Last Vital Signs Temp 36.6 C 05/16/22 11:22 Pulse 65 05/16/22 16:00 Resp 16 05/16/22 16:00 BP 163/64 H 05/16/22 11:22 Pulse Ox 98 05/16/22 16:00 O2 Del Method Nasal Cannula 05/16/22 16:00 O2 Flow Rate 2 05/16/22 16:00 Testing Laboratory Results 05/16/22 12:31 05/16/22 12:31 PT 12.0 Seconds (9.0-12.0) 05/16/22 14:54 INR 1.1 (0.9-1.1) 05/16/22 14:54 APTT 26.2 Seconds (21.0-31.0) 05/16/22 14:54 Electrocardiogram Date: 05/16/22 Findings: + NSR @ (@ 72;IRBBB) Echocardiogram Date: 11/02/16 EF: 65% LV Function: normal RWMA: + none Other Findings: + atrial enlargement (mild LA dilation) and + diastolic dysfunction (Grade 1) Valvular Disease: + no significant valvular disease Other Testing CT Chest(05/16/2022)ASCVD Aorta;cardiomegaly;coronary artery calcifications;Lungs-? fluid overload
[2022-05-16] MEDS ORDERED: NALOXONE HCL 0.4 MG/1 ML VIAL/CARP IV PRN (17:47)
[2022-05-16] MEDS ORDERED: ONDANSETRON INJ 2 MG/ML 2 ML VIAL IV PRN (17:47)
[2022-05-16] MEDS ORDERED: bisacodyL 10 MG SUPP PR PRN (17:47)
[2022-05-16] MEDS ORDERED: MAGNESIUM HYDROXIDE SUSP 30 ML UDC PO PRN (17:47)
[2022-05-16] MEDS ORDERED: ACETAMINOPHEN 325 MG TAB PO PRN (17:47)
[2022-05-16] MEDS: ACETAMINOPHEN 500 MG TAB PO SCH (18:11)
[2022-05-16] MEDS: DOCUSATE SODIUM/SENNA 50/8.6MG TAB PO SCH (19:48)
[2022-05-16] MEDS: LOSARTAN POTASSIUM 50 MG TAB PO SCH (19:51)
[2022-05-16] MEDS: VERAPAMIL HCL 120 MG TABCR PO SCH (19:51)
[2022-05-16] MEDS: MoRPHine SULFATE 4 MG/ML 1 ML CARP\\VIAL IV PRN (22:27)
[2022-05-17] MEDS: ACETAMINOPHEN 500 MG TAB PO SCH ×3 (01:34→17:29)
[2022-05-17] MEDS ORDERED: ceFAZolin 2000MG 2,000 MG/15 ML SYR IV SCH (06:00)
[2022-05-17 06:27] LABS: Hematocrit (blood only) 39.1 % (37.0-47.0); Hemoglobin 13.1 g/dl (12.0-16.0); Mean Corpuscular Hemoglobin 29.8 pg (25.0-34.0); Mean Corpuscular Hgb Conc 33.5 g/dL (32.0-36.0); Mean Corpuscular Volume 89.1 fL (80.0-100.0); Mean Platelet Volume 9.7 fL (9.4-12.4); Platelet Count 167 K/uL (130-400); RDW Coefficient of Variation 13.9 % (11.5-14.5); RDW Standard Deviation 45.1 fL (36.4-46.3); Red Blood Count 4.39 M/uL (4.20-5.40); White Blood Count 8.59 K/ul (4.8-10.8)
[2022-05-17] MEDS ORDERED: TRANEXAMIC ACID / 0.7% NACL 1,000 MG/100 ML BAG IV SCH (06:30)
[2022-05-17 06:56] LABS: Calcium 8.6 mg/dl (8.5-10.1); Potassium 3.8 mmol/L (3.5-5.1)
[2022-05-17 07:02] LABS: BUN Creatinine Ratio 30.2 (10-20); Creatinine Clr Calc Pharmacy 41.4 ml/min; Est GFR (African American) 62.5 ml/min; Est GFR (Non-African American) 53.9 ml/min
[2022-05-17] MEDS: VERAPAMIL HCL 120 MG TABCR PO SCH ×2 (08:28→19:47)
[2022-05-17] MEDS: PANTOprazole 40 MG TAB PO SCH (08:28)
[2022-05-17] MEDS: ESCITALOPRAM OXALATE 10 MG TAB PO SCH (08:28)
[2022-05-17] MEDS ORDERED: PROPOFOL IV EMULSION 10 MG/ML 20 ML VIAL IV ONE (08:44)
[2022-05-17] MEDS ORDERED: LIDOCAINE 2% MPF LOCAL 5 ML VIAL INFIL ONE (08:44)
[2022-05-17] MEDS ORDERED: ONDANSETRON INJ 2 MG/ML 2 ML VIAL ONE (08:44)
[2022-05-17] MEDS ORDERED: fentaNYL citrate PF 100 MCG/2 ML VIAL ONE ×2 (08:44→11:14)
[2022-05-17] MEDS ORDERED: ROCURONIUM BROMIDE 10 MG/ML 5 ML VIAL IV ONE (08:44)
[2022-05-17] MEDS ORDERED: DEXAMETHASONE SOD INJ 4 MG/ML VIAL ONE (08:44)
--- NOTE | 2022-05-17 09:24 | Electrocardiogram Report ---
Test Reason : Blood Pressure : / mmHG Vent. Rate : 065 BPM Atrial Rate : 065 BPM P-R Int : 190 ms QRS Dur : 096 ms QT Int : 500 ms P-R-T Axes : 061 034 038 degrees QTc Int : 520 ms Normal sinus rhythm Incomplete right bundle branch block Prolonged QT Abnormal ECG When compared with ECG of 07-JUL-2021 22:08, Incomplete right bundle branch block is now Present QT has lengthened Confirmed by Kushal Corey ([id number]) on 05/17/2022 9:24:41 AM Referred By: ED Confirmed By:Kushal Corey
--- NOTE | 2022-05-17 09:27 | Electrocardiogram Report ---
Test Reason : Blood Pressure : / mmHG Vent. Rate : 072 BPM Atrial Rate : 072 BPM P-R Int : 192 ms QRS Dur : 098 ms QT Int : 394 ms P-R-T Axes : 060 032 040 degrees QTc Int : 431 ms Poor data quality, interpretation may be adversely affected Normal sinus rhythm Incomplete right bundle branch block Borderline ECG When compared with ECG of 16-MAY-2022 11:51, (unconfirmed) No significant change Confirmed by Kushal Corey ([id number]) on 05/17/2022 9:27:22 AM Referred By: Dusty Clemons Confirmed By:Kushal Corey
[2022-05-17] MEDS ORDERED: BUPIVACAINE 0.25% PF 30 ML VIAL ONE (10:09)
--- NOTE | 2022-05-17 10:09 | History & Physical Bridge Note ---
Date of Service May 17, 2022 History & Physical Bridge Note I have examined the patient, reviewed the History & Physical and in the interval since the performance of the History & Physical I have noted the following changes of clinical significance: no changes noted
[2022-05-17] MEDS ORDERED: BUPIVACAINE/EPINEPHRINE 0.25% 1:200,000 30 ML VIAL ONE (10:14)
[2022-05-17] MEDS ORDERED: ceFAZolin 330 MG/ML 1 GM VIAL ONE (10:38)
[2022-05-17] MEDS: TRANEXAMIC ACID / 0.7% NACL 1,000 MG/100 ML BAG IV SCH (10:55)
[2022-05-17] MEDS ORDERED: HYDROmorphone INJ 1 MG/ML SYRINGE ONE (11:39)
[2022-05-17] MEDS ORDERED: ePHEDrine sulfate 50 MG/ML AMP IV PRN (12:45)
[2022-05-17] MEDS ORDERED: fentaNYL citrate PF 100 MCG/2 ML VIAL IV PRN (12:45)
[2022-05-17] MEDS ORDERED: PROMETHAZINE HCL 12.5 MG in SODIUM CHLORIDE 0.9% 50 ML IV PRN (12:45)
[2022-05-17] MEDS ORDERED: FLUMAZENIL 0.1 MG/1 ML 10 ML VIAL IV PRN (12:45)
[2022-05-17] MEDS ORDERED: NALOXONE HCL 0.4 MG/1 ML VIAL/CARP IV PRN (12:45)
[2022-05-17] MEDS ORDERED: LABETALOL HCL IV 5 MG/ML 20ML IV PRN (12:45)
[2022-05-17] MEDS ORDERED: ATROPINE SULFATE 0.1 MG/ML 10ML SYR IV PRN (12:45)
--- NOTE | 2022-05-17 12:46 | Operative Report ---
PG Post Operative Report Pre & Post Diagnosis Operation Date: 05/17/22 07:30 Pre-Op Diagnosis: Left displaced femoral neck/hip fracture Post-Op Diagnosis: left displaced femoral neck/hip fracture I identified the patient and participated in the time-out.: Yes Procedure Operation Date: 05/17/22 07:30 Actual Procedures p Left Cemented Bipolar Hip arthroplasty (Left) - Dusty Clemons MD Surgeon Dusty Clemons MD Welt Wheeler None Estimated Blood Loss 100 Findings Consistent with Post-Op Diagnosis Specimens Left femoral head sent for pathology Anesthesia Type General Complications none Disposition Accompanied Patient To Recovery: No Indications Patient is an 86-year-old adult who sustained several falls recently.Sustained a fall and was seen in the ER diagnosed with a impacted humeral neck fracture as long as a olecranon fracture. She was discharged home and had another fall. She came in the clinic with a difficulty ambulating. X-rays revealed displaced femoral neck fracture. She was admitted to the hospital, medically optimized and indicated for surgical management of Femoral neck fracture. Description of Procedure Operative implants consist of: 1. Edward size 11 LD/fracture cemented stem. 2. +3.5/28 mm metal articular ball. 3. 46 mm bipolar shell and liner. 4. Distal centralizer. 5. Small cement restrictor. The patient was taken the operating, identified, placed on the operating table supine position protectors were properly padded. IV antibiotics as well as 1 g of tranexamic acid were then provided by the anesthesia team. General anestheti c was implemented. The patient was then placed in the right lateral decubitus position. An axillary roll was placed. Stulberg hip positioner was used for positioning. The left hip and leg were then scrubbed with Hibiclens, prepped with ChloraPrep and draped in usual sterile fashion. A posterolateral approach to the left hip was then performed through a curvilinear incision centered over the greater trochanter. Sharp dissection was carried through subcutaneous tissue down to the IT band gluteal fascia the IT band gluteal fascia incised longitudinally in line with the skin incision. The underlying greater bursa was excised. The piriformis and external rotators were tagged and taken off the posterior aspect hip joint capsule. Great care was taken throughout the procedure protect the sciatic nerve at all times. A posterior capsulotomy was then performed. I tagged both sides of the capsule to allow for later repair. The hip was internally rotated. A femoral neck osteotomy cut was made with Final Cut about a centimeter above the lesser trochanter. Femoral neck and femoral head were then removed. I sized the acetabulum to a size 46. Attention drawn the femur. The proximal femur was entered with a cookie cutter followed by canal finder and lateralizing reamer. Then broached beginning with size 10 and progressing up to 11. She had pretty good fit at 11. We trialed the hip and the +3.5 articular ball provide full stability and appropriate leg lengths and appropriate soft tissue tension. I like to place these implants. All trial implants were removed. A small cement restrictor was placed. A double batch Palacos G cement was mixed. A Edward size 11 femoral stem with a centralizer was then placed after injecting the canal with cement. All extraneous cement was removed. Once the cement hardened a +3.5 articular ball and a 46 mm bipolar shell and liner were placed. Hip was located. It was once again found to be stable. Attention drawn toward closing. The wound was irrigated copious amounts of pulsatile lavage solution. I did inject locally with 60 cc of half percent Marcaine with epinephrine. The posterior capsule was then repaired with #2 Tycron suture in a [id number] fashion. The piriformis and external rotators were reapproximated to the posterior aspect of the hip abductors with #2 Tycron suture. The IT band gluteal fascia then closed with #1 PDS suture in running fashion. Subcutaneous tissues then closed with 2 layers the deep layer #1 Vicryl suture and subcutaneous tissues with 2-0 Dexon suture in a buried interrupted fashion. The skin was closed with skin andrew. Leg was then cleaned and dried and sterile dressed with Xeroform, 4 x 4's, ABD pad, foam tape was applied. The patient was then brought out of general anesthesia and transferred to the recovery room in stable condition. Patient tolerated procedure well and there were no complications. I attest to the content of the Intraoperative Record and any orders documented therein. Any exceptions are noted below.
--- NOTE | 2022-05-17 13:29 | Anesthesiology Progress Note ---
Date of Service May 17, 2022 Anesthesia Post Procedure Vital Signs Vital Signs: Temp Pulse Pulse Resp BP Pulse Ox Pulse Ox 05/17/22 13:15 36.6 C 78 12 151/53 H 93 05/17/22 12:55 78 14 151/55 H 98 05/17/22 13:05 36.6 C 78 13 155/54 H 98 05/17/22 12:45 80 13 168/57 H 99 05/17/22 12:39 36.8 C 77 12 154/52 H 98 05/17/22 07:45 05/17/22 07:39 36.6 C 58 L 18 134/71 97 05/17/22 06:07 95 05/17/22 01:31 95 05/16/22 19:50 05/16/22 22:18 36.8 C 71 18 152/72 H 95 05/16/22 19:40 36.7 C 64 16 143/75 H 97 05/16/22 17:15 05/16/22 17:15 37.0 C 71 19 164/63 H 98 05/16/22 16:00 65 16 98 05/16/22 13:59 99 05/16/22 13:59 86 L O2 Del Method O2 Del Method O2 Flow Rate O2 Flow Rate 05/17/22 13:15 Nasal Cannula 3 05/17/22 12:55 Oxymask 5 05/17/22 13:05 Oxymask 3 05/17/22 12:45 Oxymask 6 05/17/22 12:39 Oxymask 7 05/17/22 07:45 Nasal Cannula 2 05/17/22 07:39 Nasal Cannula 2 05/17/22 06:07 Nasal Cannula 2 05/17/22 01:31 Room Air 2 05/16/22 19:50 Nasal Cannula 2 05/16/22 22:18 Nasal Cannula 2 05/16/22 19:40 Room Air 2 05/16/22 17:15 Nasal Cannula 2 05/16/22 17:15 Nasal Cannula 2 05/16/22 16:00 Nasal Cannula 2 05/16/22 13:59 Nasal Cannula 2 05/16/22 13:59 Room Air Pain Intensity Left Hip: Pain Intensity: 0 Transfer of Care Handoff Completed per policy Notes Mental Status: alert / awake / arousable Patient Amnestic to Procedure: Yes Nausea / Vomiting: adequately controlled Pain: adequately controlled Airway Patency, RR, SpO2: stable & adequate BP & HR: stable & adequate Hydration State: stable & adequate Anesthetic Complications: no major complications apparent
[2022-05-17] MEDS: SODIUM CHLORIDE 0.9% 1000ML 1,000 ML IV SCH (14:18)
[2022-05-17 14:29] LABS: Appearance Urine Clear (Clear); Bacteria Urine Automated Negative (Negative); Bilirubin Urine Negative (Negative); Blood Urine Negative (Negative); Color Urine Dark Yellow; Glucose Urine UA Negative (Negative); Ketones Urine Trace (Negative); Leukocyte Esterase Urine Negative (Negative); Nitrite Urine Negative (Negative); Protein Urine Trace (Negative); RBC Urine Automated 0-4 /hpf (0-4); Specific Gravity Urine 1.033 (1.000-1.030); Urobilinogen Urine Negative (Negative); pH Urine 5.5 (4.5-7.5)
--- NOTE | 2022-05-17 14:36 | XRay Report ---
XR hip LT min 2V CLINICAL HISTORY: Pot-Op implant position TECHNIQUE: 2 views of the left hip were obtained. Comparison: None available at the time of this dictation. FINDINGS: Patient is status post total hip arthroplasty with expected postsurgical changes including soft tissu e swelling and subcutaneous emphysema. IMPRESSION: No evidence of acute osseous injury. ACT 112: Negative or not required by law. Electronically signed by: Joe Gar M.D. 05/17/2022 2:35 PM
--- NOTE | 2022-05-17 15:37 | Hospitalist Progress Note ---
Date of Service May 17, 2022 Assessment & Plan (1) Closed hip fracture: Plan: Patient was brought to the ED and found to have a left humeral head and left olecranon fracture. Patient was placed in a sling and discharged home. Upon returning home, patient noticed that she was having left hip pain and had much difficulty walking. Patient was seen at outpatient ortho office today and left hip xray was obtained showing a fracture. CT abd/pelvis on admission showed impacted and displaced subcapital fracture of the left proximal femur Status post Left Cemented Bipolar Hip arthroplasty performed by Dr Dusty Clemons No postop complication Continue pain control Will do incentive spirometry PT/OT eval Fall precaution Will monitor H/H History of paroxysmal A-fib Not anticoagulated EKG demonstrates NSR today Continue verapamil for rate control HTN Continue verapamil and Losartan Continue monitor BP DVT px on SCDs Will add sub heparin once bleeding stable Code Status Full code (2) Left displaced femoral neck fracture: (3) Olecranon fracture: Plan: 05/15/2022 left shoulder x-ray: Comminuted fracture of the humeral head with at least 4 fragments, some impaction is seen. 05/15/2022 left elbow x-ray: Olecranon fracture with associated soft tissue swelling and joint effusion. Discussed plan with orthopedics. Proximal shoulder fracture nonoperative, sling advised. Plan for olecranon fracture pending. (4) Paroxysmal A-fib: Plan: History of paroxysmal A-fib, not anticoagulated EKG demonstrates NSR today Continue verapamil for rate control Consider initiation of anticoagulation postop (5) HTN (hypertension): Plan: BP controlled, continue losartan DVT PROPHYLAXIS SCDs due to planned surgical procedure tomorrow I spent a total of 75 minutes coordinating, documenting, and providing care for this patient excluding time spent in the performance of separately billed services. This included personally reviewing all current laboratories and imaging studies, medication reconciliation, outpatient chart review, and discussion with specialists. Admission and Anticipated Discharge Date Admission Date: May 16, 2022 Subjective Pt was seen and examined for postop follow up Lying in bed with no acute distress with family member at bedside She just got back from OR about 2 hrs ago She said that she is not having any pain Denies any chest pain, palpitation, dizziness and SOB Review of Systems Review of Systems: All systems reviewed & are unremarkable except as noted in Subjective Physical Exam Physical Exam: General- No acute distress Head- atraumatic Eyes- PERRL, EOMI, ENT- oropharynx clear Neck- supple, no JVD Lungs- clear to auscultation Heart- regular rhythm; no murmur Abdomen- normal bowel sounds, soft, nontender Extremities- no calf tenderness, s/p left hip surgery Neuro- alert, oriented x 3; PERRL, EOMI; no facial palsy; no dysarthria Skin- warm & dry Results & Data Results & Data ([facility]) Vital Signs (Past 12 Hours) Vital Signs Temp Pulse Pulse Resp BP Pulse Ox Pulse Ox 05/17/22 13:45 36.5 C 79 14 147/72 H 94 05/17/22 14:45 36.5 C 73 12 129/81 95 05/17/22 14:16 36.4 C L 70 12 124/67 96 05/17/22 13:15 36.6 C 78 12 151/53 H 93 05/17/22 12:55 78 14 151/55 H 98 05/17/22 13:05 36.6 C 78 13 155/54 H 98 05/17/22 12:45 80 13 168/57 H 99 05/17/22 12:39 36.8 C 77 12 154/52 H 98 05/17/22 07:45 05/17/22 07:39 36.6 C 58 L 18 134/71 97 05/17/22 06:07 95 O2 Del Method O2 Del Method O2 Flow Rate O2 Flow Rate 05/17/22 13:45 Nasal Cannula 2 05/17/22 14:45 Nasal Cannula 1 05/17/22 14:16 Nasal Cannula 2 05/17/22 13:15 Nasal Cannula 3 05/17/22 12:55 Oxymask 5 05/17/22 13:05 Oxymask 3 05/17/22 12:45 Oxymask 6 05/17/22 12:39 Oxymask 7 05/17/22 07:45 Nasal Cannula 2 05/17/22 07:39 Nasal Cannula 2 05/17/22 06:07 Nasal Cannula 2 (1) Closed hip fracture Encounter type: initial encounter Laterality: left Qualified Code(s): S72.002A - Fracture of unspecified part of neck of left femur, initial encounter for closed fracture (3) Olecranon fracture Encounter type: subsequent encounter Fracture type: closed Laterality: left
[2022-05-17] MEDS: ceFAZolin 1000MG 1,000 MG/7.5 ML SYR IV SCH (18:02)
[2022-05-17] MEDS ORDERED: Nursing to Pharmacy Communication SCH (19:15)
[2022-05-17] MEDS: ASPIRIN 81 MG ECTAB PO SCH (19:46)
[2022-05-17] MEDS: DOCUSATE SODIUM/SENNA 50/8.6MG TAB PO SCH (19:46)
[2022-05-17] MEDS: LOSARTAN POTASSIUM 50 MG TAB PO SCH (19:47)
[2022-05-17] MEDS: MoRPHine SULFATE 4 MG/ML 1 ML CARP\\VIAL IV PRN (22:50)
[2022-05-18] MEDS: ACETAMINOPHEN 500 MG TAB PO SCH ×3 (01:40→17:15)
[2022-05-18] MEDS: ceFAZolin 1000MG 1,000 MG/7.5 ML SYR IV SCH (03:26)
[2022-05-18] MEDS: TRANEXAMIC ACID / 0.7% NACL 1,000 MG/100 ML BAG IV SCH (03:26)
[2022-05-18] MEDS: SODIUM CHLORIDE 0.9% 1000ML 1,000 ML IV SCH (03:36)
[2022-05-18 07:07] LABS: Basophils # (auto) 0.01 K/uL (0-0.2); Basophils % (auto) 0.1 %; Hematocrit (blood only) 37.3 % (37.0-47.0); Hemoglobin 12.4 g/dl (12.0-16.0); Immature Granulocytes # (auto) 0.07 K/uL (0.01-0.20); Immature Granulocytes % (auto) 0.6 %; Lymphocytes # (auto) 1.55 K/uL (1.2-3.4); Lymphocytes % (auto) 12.9 %; Mean Corpuscular Hemoglobin 29.4 pg (25.0-34.0); Mean Corpuscular Hgb Conc 33.2 g/dL (32.0-36.0); Mean Corpuscular Volume 88.4 fL (80.0-100.0); Mean Platelet Volume 9.8 fL (9.4-12.4); Monocytes % (auto) 8.3 %; Neutrophils % (auto) 78.1 %; Platelet Count 182 K/uL (130-400); RDW Coefficient of Variation 13.7 % (11.5-14.5); RDW Standard Deviation 44.5 fL (36.4-46.3); Red Blood Count 4.22 M/uL (4.20-5.40); White Blood Count 12.03 K/ul (4.8-10.8)
[2022-05-18 08:05] LABS: Calcium 8.4 mg/dl (8.5-10.1); Potassium 4.3 mmol/L (3.5-5.1)
--- NOTE | 2022-05-18 08:07 | Progress Notes ---
DATE OF SERVICE: 05/18/2022 SUBJECTIVE: An 86-year-old female, postoperative day 1 from a left cemented bipolar hip arthroplasty for fracture. She also has an impacted left proximal humerus fracture and slightly displaced elbow fracture, which we are treating conservatively. She is doing pretty well this morning. Denies any s ignificant pain. No new complaints. OBJECTIVE: VITAL SIGNS: Temperature 36.9. Vital signs are stable. GENERAL: Shows a pleasant, frail, elderly female. She is sitting up in bed and looks pretty comfort able. EXTREMITIES: Examination of the left hip reveals the leg lengths equal. Dressing is clean, dry and intact. Thigh is soft and supple. She can dorsiflex and plantarflex her foot appropriately. Examination of the left arm reveals a sling and splint to be in place. No visible deformity. She is neurologically intact. LABORATORY DATA: Hemoglobin 12.4. Hematocrit 37.3. Electrolytes are pending. ASSESSMENT: An 86-year-old female postoperative day 1 from a left cemented bipolar hip arthroplasty for fracture. She also has a proximal humerus fracture and left olecranon fracture. These will be t reated nonoperatively. PLAN: 1. DVT prophylaxis includes thigh-high TEDs, SCDs and we would recommend a baby aspirin twice a day for 6 weeks. 2. PT/OT. She can fully weightbear as tolerated on the left leg. She does need to obey hip precaut ions. 3. Left humerus fracture. This can be treated conservatively. She is in need to wear the sling for the next 6 weeks. We will start elbow and shoulder motion, probably in about 2 weeks. 4. Left olecranon fracture. She is in a splint. We will leave the splint on for 2 weeks. We will see her back in 2 weeks and then likely start some gentle motion. 5. Disposition: She is orthopedically okay for discharge any time, medically stable. She will like ly need a rehab stay. Any orthopedic questions can be directed to me at [phone]. Job ID: [id number]
[2022-05-18 08:11] LABS: BUN Creatinine Ratio 32.2 (10-20); Creatinine Clr Calc Pharmacy 44.2 ml/min; Est GFR (African American) 67.6 ml/min; Est GFR (Non-African American) 58.3 ml/min
[2022-05-18] MEDS: ESCITALOPRAM OXALATE 10 MG TAB PO SCH (08:24)
[2022-05-18] MEDS: ASPIRIN 81 MG ECTAB PO SCH ×2 (08:24→20:46)
[2022-05-18] MEDS: PANTOprazole 40 MG TAB PO SCH (08:24)
[2022-05-18] MEDS: VERAPAMIL HCL 120 MG TABCR PO SCH ×2 (08:24→20:47)
--- NOTE | 2022-05-18 11:30 | Hospitalist Progress Note ---
Date of Service May 18, 2022 Assessment & Plan (1) Closed hip fracture: Plan: Patient was brought to the ED and found to have a left humeral head and left olecranon fracture. Patient was placed in a sling and discharged home. Upon returning home, patient noticed that she was having left hip pain and had much difficulty walking. Patient was seen at outpatient ortho office today and left hip xray was obtained showing a fracture. CT abd/pelvis on admission showed impacted and displaced subcapital fracture of the left proximal femur Status post Left Cemented Bipolar Hip arthroplasty performed by Dr Dusty Clemons No postop complication Continue pain control Continue incentive spirometry Continue PT/OT eval Fall precaution Hgb stable History of paroxysmal A-fib Not anticoagulated EKG demonstrates NSR today Continue verapamil for rate control HTN Continue verapamil and Losartan Continue monitor BP DVT px on SCDs Will add sub heparin once bleeding stable Code Status Full code (2) Left displaced femoral neck fracture: (3) Olecranon fracture: Plan: 05/15/2022 left shoulder x-ray: Comminuted fracture of the humeral head with at least 4 fragments, some impaction is seen. 05/15/2022 left elbow x-ray: Olecranon fracture with associated soft tissue swelling and joint effusion. Discussed plan with orthopedics. Proximal shoulder fracture nonoperative, sling advised. Plan for olecranon fracture pending. (4) Paroxysmal A-fib: Plan: History of paroxysmal A-fib, not anticoagulated EKG demonstrates NSR today Continue verapamil for rate control Consider initiation of anticoagulation postop (5) HTN (hypertension): Plan: BP controlled, continue losartan DVT PROPHYLAXIS SCDs due to planned surgical procedure tomorrow I spent a total of 75 minutes coordinating, documenting, and providing care for this patient excluding time spent in the performance of separately billed services. This included personally reviewing all current laboratories and imaging studies, medication reconciliation, outpatient chart review, and discussion with specialists. Admission and Anticipated Discharge Date Admission Date: May 16, 2022 Subjective Pt was seen and examined for postop follow up Lying in bed with no acute distress Pt just completed physical therapy few minutes ago She said pain is control Denies any chest pain, palpitation, dizziness and SOB Review of Systems Review of Systems: All systems reviewed & are unremarkable except as noted in Subjective Physical Exam Physical Exam: General- No acute distress Head- atraumatic Eyes- PERRL, EOMI, ENT- oropharynx clear Neck- supple, no JVD Lungs- clear to auscultation Heart- regular rhythm; no murmur Abdomen- normal bowel sounds, soft, nontender Extremities- no calf tenderness, s/p left hip surgery Neuro- alert, oriented x 3; PERRL, EOMI; no facial palsy; no dysarthria Skin- warm & dry Results & Data Results & Data ([facility]) Vital Signs (Past 12 Hours) Vital Signs Temp Pulse Resp BP Pulse Ox Pulse Ox O2 Del Method 05/18/22 07:30 36.9 C 67 18 135/73 95 Room Air 05/18/22 06:50 96 05/18/22 03:14 36.6 C 67 18 146/74 H 96 Room Air 05/17/22 22:50 96 05/17/22 22:50 36.8 C 69 18 145/73 H 96 Room Air O2 Del Method 05/18/22 07:30 05/18/22 06:50 Room Air 05/18/22 03:14 05/17/22 22:50 Room Air 05/17/22 22:50 (1) Closed hip fracture Encounter type: initial encounter Laterality: left Qualified Code(s): S72.002A - Fracture of unspecified part of neck of left femur, initial encounter for closed fracture (3) Olecranon fracture Encounter type: subsequent encounter Fracture type: closed Laterality: left
[2022-05-18] MEDS: DOCUSATE SODIUM/SENNA 50/8.6MG TAB PO SCH (20:46)
[2022-05-18] MEDS: LOSARTAN POTASSIUM 50 MG TAB PO SCH (20:48)
[2022-05-19] MEDS: oxyCODONE HCL IR 5 MG TAB (IMMEDIATE RELEASE) PO PRN (01:51)
[2022-05-19] MEDS: ACETAMINOPHEN 500 MG TAB PO SCH ×3 (01:51→18:44)
[2022-05-19] MEDS: TRANEXAMIC ACID / 0.7% NACL 1,000 MG/100 ML BAG IV SCH (04:23)
[2022-05-19] MEDS: VERAPAMIL HCL 120 MG TABCR PO SCH ×2 (09:16→19:49)
[2022-05-19] MEDS: PANTOprazole 40 MG TAB PO SCH (09:16)
[2022-05-19] MEDS: ASPIRIN 81 MG ECTAB PO SCH ×2 (09:16→19:48)
[2022-05-19] MEDS: ESCITALOPRAM OXALATE 10 MG TAB PO SCH (09:16)
--- NOTE | 2022-05-19 11:04 | Hospitalist Progress Note ---
Date of Service May 19, 2022 Assessment & Plan (1) Closed hip fracture: Plan: This is an 86-year-old female with significant past medical history of paroxysmal atrial fibrillation, HTN, HLD, IBS, Parkinson disease and depression who presents to ED secondary to sustaining a mechanical fall. Initially brought to ED the day prior and was diagnosed with left humeral head and left olecranon fracture. She was placed in sling and discharged home. Upon returning home she further noticed she was having left hip pain and difficulty walking. She was seen and evaluated as an outpatient by orthopedics and was diagnosed with hip fracture and sent back to ED. Left proximal femur fracture CT abd/pelvis on admission showed impacted and displaced subcapital fracture of the left proximal femur Status post Left Cemented Bipolar Hip arthroplasty performed by Dr Dusty Clemons Age-related osteoporotic fracture of the left proximal femur, left humeral head, and left olecranon process No postop complication Continue pain control Continue incentive spirometry Continue PT/OT eval Fall precaution Hgb stable Olecranon fracture Comminuted fracture of humeral head, some impaction ortho on board Discussed plan with orthopedics. Proximal shoulder fracture nonoperative, sling advised. Olecranon fracture: She is in a splint. We will leave the splint on for 2 weeks. We will see her back in 2 weeks and then likely start some gentle motion. History of paroxysmal A-fib Not anticoagulated EKG demonstrates NSR today Continue verapamil for rate control Hypoxia wean o2 as able, recommend incentive spirometry 20mg IV lasix given today HTN Continue verapamil and Losartan Continue monitor BP DVT px ASA BID per ortho x 6 weeks Code Status Full code A total of 45 minutes was spent with greater than 50% of that time personally viewing all current laboratory work and diagnostic imaging studies obtained in the ED. Additionally, I was able to view the patients past medication reconciliation and history with direct visualization in the patients chart. Included in the time above, a portion of that time was spent assessing the patient while discussing and collaborating with specialists, if necessary, and making medical decision making on treatment plan. All of the above was collaborated with Dr. Senior. Please see addendum for further details. (2) Left displaced femoral neck fracture: (3) Olecranon fracture: (4) Paroxysmal A-fib: (5) HTN (hypertension): Admission and Anticipated Discharge Date Admission Date: May 16, 2022 Supervising Physician Co-Signing Physician Notes Patient seen and examined. Agreed with Marsha [place] exam, assessment and plan. Status post Left Cemented Bipolar Hip arthroplasty due to left proximal femur fracture. Continue incentive spirometry. Continue pain control. Continue PT/OT eval. Fall precaution. MD Parrish Subjective Patient was seen and examined in room 319. Follow-up left hip fracture, left olecranon and proximal shoulder fracture. Currently complains of pain to left shoulder. Offers no acute concerns and is tired. Denies fever, chills, sweats, lightheadedness, dizziness, chest pain, shortness of breath, nausea, vomiting, abdominal pain. Stable appetite. Positive bowel movement yesterday. Review of Systems Review of Systems: All systems reviewed & are unremarkable except as noted in HPI & below Physical Exam Physical Exam: Gen: WD/WN, elderly, female, sitting up in bed, NAD, A&O x3 HEENT: Normocephalic, atraumatic, conjunctivae moist, sclerae anicteric, mucous membranes moist. Lung: Clear to Auscultation bilaterally, no wheezes/rales/rhonchi Heart: Regular rate, regular rhythm, no murmurs, rubs, or gallops Abdomen: Soft, NT, ND +BS x 4 Extremities: Left upper extremity splint in place, no edema Skin: Warm, no rash, negative turgor. Results & Data Results & Data ([facility]) Vital Signs (Past 12 Hours) Vital Signs Temp Pulse Resp BP Pulse Ox O2 Del Method O2 Flow Rate 05/19/22 08:17 36.8 C 65 20 140/60 92 Nasal Cannula 2 Medications Administered Current Inpatient Medications Acetaminophen (Acetaminophen 325 Mg Tab) 650 mg PO Q4H PRN PRN Reason: pain/fever Stop: 06/15/22 17:46 Acetaminophen (Acetaminophen 500 Mg Tab) 1,000 mg PO Q8H YONNY Stop: 06/15/22 17:46 Last Admin: 05/19/22 09:14 Dose: 1,000 mg Aspirin (Aspirin 81 Mg Ectab) 81 mg PO BID YONNY Stop: 06/16/22 20:59 Last Admin: 05/19/22 09:16 Dose: 81 mg Bisacodyl (Bisacodyl 10 Mg Supp) 10 mg KS DAILY PRN PRN Reason: Constipation Stop: 06/15/22 17:46 Escitalopram Oxalate (Escitalopram Oxalate 10 Mg Tab) 10 mg PO QAM [facility] Stop: 06/16/22 08:59 Last Admin: 05/19/22 09:16 Dose: 10 mg Furosemide (Furosemide Inj 20 Mg/2 Ml Vial) 20 mg IV ONE ONE Stop: 05/19/22 10:57 Losartan Potassium (Losartan Potassium 50 Mg Tab) 50 mg PO HS [facility] Stop: 06/15/22 20:59 Last Admin: 05/18/22 20:48 Dose: 50 mg Magnesium Hydroxide (Magnesium Hydroxide Susp 30 Ml Udc) 30 ml PO DAILY PRN PRN Reason: Constipation Stop: 06/15/22 17:46 Morphine Sulfate (Morphine Sulfate 4 Mg/Ml 1 Ml Carp\Vial) 4 mg IV PRN PRN PRN Reason: severe pain Stop: 05/30/22 17:46 Last Admin: 05/17/22 22:50 Dose: 4 mg Naloxone HCl (Naloxone Hcl 0.4 Mg/1 Ml Vial/Carp) 0.1 mg IV UD PRN PRN Reason: Opiate Overdose Stop: 06/15/22 17:46 Ondansetron HCl (Ondansetron Inj 2 Mg/Ml 2 Ml Vial) 4 mg IV Q6H PRN PRN Reason: Nausea And Vomiting Stop: 06/15/22 17:46 Oxycodone HCl (Oxycodone Hcl Ir 5 Mg Tab (Immediate Release)) 5 mg PO Q4H PRN PRN Reason: MODERATE Pain (4,5,6) & Pre PT Stop: 05/30/22 17:46 Last Admin: 05/19/22 01:51 Dose: 5 mg Pantoprazole Sodium (Pantoprazole 40 Mg Tab) 40 mg PO QAM [facility] Stop: 06/16/22 08:59 Last Admin: 05/19/22 09:16 Dose: 40 mg Senna/Docusate Sodium (Docusate Sodium/Senna 50/8.6mg Tab) 2 tab PO [facility] Stop: 06/15/22 20:59 Last Admin: 05/18/22 20:46 Dose: 2 tab Verapamil HCl (Verapamil Hcl 120 Mg Tabcr) 120 mg PO BID [facility] Stop: 06/15/22 20:59 Last Admin: 05/19/22 09:16 Dose: 120 mg (1) Closed hip fracture Encounter type: initial encounter Laterality: left Qualified Code(s): S72.002A - Fracture of unspecified part of neck of left femur, initial encounter for closed fracture (3) Olecranon fracture Encounter type: subsequent encounter Fracture type: closed Laterality: left
[2022-05-19] MEDS ORDERED: FUROSEMIDE INJ 20 MG/2 ML VIAL IV ONE (11:45)
[2022-05-19] MEDS: LOSARTAN POTASSIUM 50 MG TAB PO SCH (19:49)
[2022-05-19] MEDS: DOCUSATE SODIUM/SENNA 50/8.6MG TAB PO SCH (19:49)
[2022-05-20] MEDS: ACETAMINOPHEN 500 MG TAB PO SCH ×3 (01:33→17:53)
[2022-05-20 06:59] LABS: Basophils # (auto) 0.03 K/uL (0-0.2); Basophils % (auto) 0.4 %; Eosinophils # (auto) 0.25 K/uL (0-0.50); Eosinophils % (auto) 3.7 %; Hematocrit (blood only) 32.8 % (37.0-47.0); Hemoglobin 10.8 g/dl (12.0-16.0); Immature Granulocytes # (auto) 0.05 K/uL (0.01-0.20); Immature Granulocytes % (auto) 0.7 %; Lymphocytes # (auto) 2.15 K/uL (1.2-3.4); Mean Corpuscular Hemoglobin 29.7 pg (25.0-34.0); Mean Corpuscular Hgb Conc 32.9 g/dL (32.0-36.0); Mean Corpuscular Volume 90.1 fL (80.0-100.0); Mean Platelet Volume 9.4 fL (9.4-12.4); Monocytes # (auto) 0.74 K/uL (0.11-0.59); Neutrophils # (auto) 3.49 K/uL (1.40-6.50); Neutrophils % (auto) 52.2 %; Platelet Count 147 K/uL (130-400); RDW Coefficient of Variation 13.8 % (11.5-14.5); RDW Standard Deviation 45.3 fL (36.4-46.3); Red Blood Count 3.64 M/uL (4.20-5.40); White Blood Count 6.71 K/ul (4.8-10.8)
[2022-05-20 07:20] LABS: BUN Creatinine Ratio 35.7 (10-20); Calcium 8.1 mg/dl (8.5-10.1); Creatinine Clr Calc Pharmacy 57.1 ml/min; Est GFR (African American) 91.6 ml/min; Magnesium 2.1 mg/dl (1.7-2.4); Potassium 3.7 mmol/L (3.5-5.1)
[2022-05-20] MEDS: PANTOprazole 40 MG TAB PO SCH (09:19)
[2022-05-20] MEDS: VERAPAMIL HCL 120 MG TABCR PO SCH ×2 (09:19→22:40)
[2022-05-20] MEDS: ASPIRIN 81 MG ECTAB PO SCH ×2 (09:19→22:39)
[2022-05-20] MEDS: ESCITALOPRAM OXALATE 10 MG TAB PO SCH (09:19)
--- NOTE | 2022-05-20 09:56 | Progress Notes ---
DATE OF SERVICE: 05/20/2022. SUBJECTIVE: An 86-year-old female, postoperative day #3 from cemented bipolar hip arthroplasty for f racture. Also has a proximal humerus fracture and olecranon fracture. She is doing pretty well. Do es not report a lot of pain this morning. OBJECTIVE: VITAL SIGNS: Temperature 36.7. Vital signs are stable. GENERAL: Shows a pleasant, elderly female. She is sitting up in her bedside chair and looks quite c omfortable. EXTREMITIES: Examination of the left hip reveals the dressing to be clean, dry and intact. Leg mitul ths are equal. She can dorsiflex and plantarflex her foot appropriately. Her thigh is soft and supp le. Examination of the left arm reveals the sling to be in place as well as a splint. She can flex and e xtend her fingers appropriately. No obvious deformity. LABORATORY DATA: Hemoglobin 10.8. Hematocrit 32.8. Electrolytes are stable. ASSESSMENT: An 86-year-old female, postoperative day #3 from a left cemented bipolar hip arthroplast y for fracture along with an impacted proximal humerus fracture and a slightly displaced olecranon fr acture. Orthopedically, she is doing pretty well. Hip is located. She is neurologically intact. A rm seems reasonably comfortable. PLAN: 1. DVT prophylaxis including thigh-high TEDs, SCDs and we would recommend a baby aspirin twice a day for 6 weeks. 2. PT/OT. She can weight bear as tolerated in the left leg. Needs to obey hip precautions. 3. Left arm. We are going to leave her in the sling for the next 2 weeks along with the splint. We will see her back in 2 weeks and likely begin some elbow motion and some gentle shoulder exercises. 4. Medical management as per the medicine service. 5. Disposition: She is orthopedically okay for discharge any time medically stable. I need to see her back two to three weeks out from surgery date. Any orthopedic questions can be directed to me at [phone]. Job ID: [id number]
--- NOTE | 2022-05-20 11:28 | Hospitalist Progress Note ---
Date of Service May 20, 2022 Assessment & Plan (1) Closed hip fracture: Plan: This is an 86-year-old female with significant past medical history of paroxysmal atrial fibrillation, HTN, HLD, IBS, Parkinson disease and depression who presents to ED secondary to sustaining a mechanical fall. Initially brought to ED the day prior and was diagnosed with left humeral head and left olecranon fracture. She was placed in sling and discharged home. Upon returning home she further noticed she was having left hip pain and difficulty walking. She was seen and evaluated as an outpatient by orthopedics and was diagnosed with hip fracture and sent back to ED. Left proximal femur fracture CT abd/pelvis on admission showed impacted and displaced subcapital fracture of the left proximal femur Status post Left Cemented Bipolar Hip arthroplasty performed by Dr Dusty Clemons Age-related osteoporotic fracture of the left proximal femur, left humeral head, and left olecranon process No postop complication Continue pain control Continue incentive spirometry Continue PT/OT eval Fall precaution Hgb stable Olecranon fracture Comminuted fracture of humeral head, some impaction ortho on board Discussed plan with orthopedics. Proximal shoulder fracture nonoperative, sling advised. Olecranon fracture: She is in a splint. We will leave the splint on for 2 weeks. We will see her back in 2 weeks and then likely start some gentle motion. History of paroxysmal A-fib Not anticoagulated EKG demonstrates NSR today Continue verapamil for rate control Hypoxia wean o2 as able, recommend incentive spirometry 20mg IV lasix given on 05/19/2022 She has been since weaned off oxygen We will resume daily oral Lasix HTN Continue verapamil and Losartan Continue monitor BP Lasix resume DVT px ASA BID per ortho x 6 weeks Code Status Full code A total of 45 minutes was spent with greater than 50% of that time personally viewing all current laboratory work and diagnostic imaging studies obtained in the ED. Additionally, I was able to view the patients past medication reconciliation and history with direct visualization in the patients chart. Included in the time above, a portion of that time was spent assessing the patient while discussing and collaborating with specialists, if necessary, and making medical decision making on treatment plan. All of the above was collaborated with Dr. Senior. Please see addendum for further details. (2) Left displaced femoral neck fracture: (3) Olecranon fracture: (4) Paroxysmal A-fib: (5) HTN (hypertension): Admission and Anticipated Discharge Date Admission Date: May 16, 2022 Supervising Physician Co-Signing Physician Notes Patient seen and examined. Agreed with Marsha [place] exam, assessment and plan. Status post Left Cemented Bipolar Hip arthroplasty performed by Dr Dusty Clemons due to left proximal femur fracture. Continue incentive spirometry. Continue PT/OT eval. Fall precaution. MD Parrish Subjective Patient was seen and examined in room 319. Follow-up left hip fracture, left olecranon and proximal shoulder fracture. She is sitting up in bedside chair and feels well this morning. Pain is minimal to left shoulder. She denies fever, chills, sweats, lightheadedness, dizziness, chest pain, shortness of breath, nausea, vomiting, abdominal pain. She is waiting authorization to go to rehab. Son is at bedside. Review of Systems Review of Systems: All systems reviewed & are unremarkable except as noted in HPI & below Physical Exam Physical Exam: Gen: WD/WN, elderly, female, sitting up in bedside chair, NAD, A&O x3 HEENT: Normocephalic, atraumatic, conjunctivae moist, sclerae anicteric, mucous membranes moist. Lung: Clear to Auscultation bilaterally, no wheezes/rales/rhonchi Heart: Regular rate, regular rhythm, no murmurs, rubs, or gallops Abdomen: Soft, NT, ND +BS x 4 Extremities: Left upper extremity splint in place, no edema Skin: Warm, no rash, negative turgor. Results & Data Results & Data ([facility]) Vital Signs (Past 12 Hours) Vital Signs Temp Pulse Resp BP Pulse Ox O2 Del Method O2 Flow Rate 05/20/22 07:16 36.7 C 64 18 159/71 H 93 Nasal Cannula 2 Laboratory Results Short CBC 05/20/22 Range/Units 06:21 WBC 6.71 (4.8-10.8) K/ul Hgb 10.8 L (12.0-16.0) g/dl Hct 32.8 L (37.0-47.0) % Plt Count 147 (130-400) K/uL BMP 05/20/22 06:21 Sodium 141 Potassium 3.7 Chloride 105 Carbon Dioxide 31 BUN 25 H Creatinine 0.70 Glucose 100 H Calcium 8.1 L (1) Closed hip fracture Encounter type: initial encounter Laterality: left Qualified Code(s): S72.002A - Fracture of unspecified part of neck of left femur, initial encounter for closed fracture (3) Olecranon fracture Encounter type: subsequent encounter Fracture type: closed Laterality: left
[2022-05-20] MEDS: FUROSEMIDE 20 MG TAB PO SCH (11:43)
[2022-05-20] MEDS ORDERED: ERGOCALCIFEROL 50,000 UNITS 1250 MCG CAP PO SCH (11:45)
[2022-05-20] MEDS: oxyCODONE HCL IR 5 MG TAB (IMMEDIATE RELEASE) PO PRN (13:34)
[2022-05-20] MEDS: DOCUSATE SODIUM/SENNA 50/8.6MG TAB PO SCH (22:39)
[2022-05-20] MEDS: LOSARTAN POTASSIUM 50 MG TAB PO SCH (22:40)
[2022-05-21] MEDS: ACETAMINOPHEN 500 MG TAB PO SCH ×2 (03:01→08:36)
[2022-05-21 07:48] LABS: Hematocrit (blood only) 31.3 % (37.0-47.0); Hemoglobin 10.4 g/dl (12.0-16.0); Mean Corpuscular Hemoglobin 29.5 pg (25.0-34.0); Mean Corpuscular Hgb Conc 33.2 g/dL (32.0-36.0); Mean Corpuscular Volume 88.9 fL (80.0-100.0); Mean Platelet Volume 9.8 fL (9.4-12.4); Platelet Count 167 K/uL (130-400); RDW Standard Deviation 45.6 fL (36.4-46.3); Red Blood Count 3.52 M/uL (4.20-5.40)
[2022-05-21] MEDS: ESCITALOPRAM OXALATE 10 MG TAB PO SCH (08:36)
[2022-05-21] MEDS: PANTOprazole 40 MG TAB PO SCH (08:36)
[2022-05-21] MEDS: VERAPAMIL HCL 120 MG TABCR PO SCH (08:36)
[2022-05-21] MEDS: FUROSEMIDE 20 MG TAB PO SCH (08:36)
[2022-05-21] MEDS ORDERED: ENOXAPARIN INJ 40 MG/0.4 ML SYR SQ SCH (09:00)
[2022-05-21] MEDS: oxyCODONE HCL IR 5 MG TAB (IMMEDIATE RELEASE) PO PRN (09:48)
--- NOTE | 2022-05-21 10:37 | Discharge Summary ---
Discharge Summary Date of Service May 21, 2022 Notes For Next Care Provider Patient with Left proximal femur fracture s/p left bipolar hip arthroplasty by Dr. Clemons. She also suffered a Left humeral head and olecranon fracture. She has Sling to left shoulder that needs to be in place x 6 weeks and a LUE splint in place for approximately 2 weeks. She will need to follow up with orthopedics as outpatient. We are recommending she be placed on Lovenox 40mg SQ once daily for DVT p rophylaxis. While she is on Lovenox we recommend she hold her ASA 81mg daily. Recommend resuming aspirin once lovenox is discontinued. When patient able to ambulate consistently would recommend discontinuing lovenox. Medication Changes From Visit Hold ASA 81mg daily while on Lovenox for dvt prophylaxis. Admission HPI Per Admitting Provider 86 year old female with PMH dyslipidemia, paroxysmal a. fib (not anticoagulated), HTN, GERD, IBS, Parkinson's, history of breast cancer s/p left mastectomy, and other problems listed below who presents to the ED for evaluation of left hip pain. History obtained by Dr. Donis from patient and son/daughter in law who are at the bedside and my personal review of outpatient PCP, cardiology, orthopedic notes. Patient was seen in the ED yesterday after sustaining a mechanical fall. Patient had gotten out of the car to go into a store and when she went to turn around, she fell to the ground. Patient was brought to the ED and found to have a left humeral head and left olecranon fracture. Patient was placed in a sling and discharged home. Upon returning home, patient noticed that she was having left hip pain and had much difficulty walking. Patient was seen at outpatient ortho office today and left hip xray was obtained showing a fracture. She was sent back to the ED for further eval. Patient reports she otherwise has been feeling well recently. Denies chest pain, palpitations, shortness of breath. No abdominal pain, nausea, vomiting, or diarrhea. Denies fever and chills. No urinary symptoms. In the ED, head, c- spine, chest, abd/pelvis CT are all unremarkable for additional acute injuries. Patient was given IV Fentanyl and IV Ketoralac. Principal Dx & Hospital Course #1 = Principal Diagnosis (1) Closed hip fracture: This is an 86-year-old female with significant past medical history of paroxysmal atrial fibrillation, HTN, HLD, IBS, Parkinson disease and depression who presents to ED secondary to sustaining a mechanical fall. Initially brought to ED the day prior and was diagnosed with left humeral head and left olecranon fracture. She was placed in sling and discharged home. Upon returning home she further noticed she was having left hip pain and difficulty walking. She was seen and evaluated as an outpatient by orthopedics and was diagnosed with hip fracture and sent back to ED. 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 Olecranon fracture: She is in a splint. We will leave the splint on for 2 weeks. We will see her back in 2 weeks and then likely start some gentle motion. History of paroxysmal A-fib Not anticoagulated EKG demonstrates NSR today Continue verapamil for rate control Hypoxia 20mg IV lasix given on 05/19/2022 She has been since weaned off oxygen Continue daily oral Lasix Hypertension Continue verapamil and Losartan Continue monitor BP BP stable 147/70 DVT px per attending Dr. Rai he requests Lovenox 40mg SQ once daily until pt more ambulatory, will hold baby ASA while on lovenox Code Status Full code Patient is in good spirits and ready to be [facility]. She remains hemodynamically stable and is tolerating diet. She is moving her bowels and has no acute concerns today. A total of 45 minutes was spent with greater than 50% of that time personally viewing all current laboratory work and diagnostic imaging studies obtained in the ED. Additionally, I was able to view the patients past medication reconciliation and history with direct visualization in the patients chart. Included in the time above, a portion of that time was spent assessing the patient while discussing and collaborating with specialists, if necessary, and making medical decision making on treatment plan. All of the above was collaborated with Dr. Rai. Please see addendum for further details. (2) Left displaced femoral neck fracture: (3) Olecranon fracture: (4) Paroxysmal A-fib: (5) HTN (hypertension): Discharge Exam Gen: WD/WN, elderly, female, lying in bed, NAD, A&O x3 HEENT: Normocephalic, atraumatic, conjunctivae moist, sclerae anicteric, mucous membranes moist. Lung: Clear to Auscultation bilaterally, no wheezes/rales/rhonchi Heart: Regular rate, regular rhythm, s1/s2 no rubs, or gallops Abdomen: Soft, NT, ND +BS x 4 Extremities: Left upper extremity splint in place/sling, no edema Skin: Warm, no rash, negative turgor. Updated Medication List Medication Instructions Recorded Confirmed Type escitalopram oxalate 10 mg tablet 10 mg PO QAM 07/07/21 05/16/22 History meclizine 25 mg tablet 25 mg PO TID PRN Dizziness 07/07/21 05/16/22 History omeprazole 20 mg capsule,delayed 20 mg PO QAM 07/07/21 05/16/22 History release verapamil 120 mg tablet,extended 120 mg PO AMPM 07/07/21 05/16/22 History release cyanocobalamin (vitamin B-12) 1,000 mcg PO DAILY 05/15/22 05/16/22 History 1,000 mcg tablet (Vitamin B-12) losartan 50 mg tablet 50 mg PO HS 05/15/22 05/16/22 History acetaminophen 325 mg tablet 650 mg PO Q4H PRN mild pain (scale 05/20/22 Rx score 1-4) #60 tabs furosemide 20 mg tablet 20 mg PO QAM #30 tabs 05/20/22 05/16/22 Rx oxycodone 5 mg tablet 2.5 mg PO Q4H PRN moderate to 05/20/22 Rx severe pain (5,6,7,8,9,10) #12 tabs sennosides 8.6 mg-docusate sodium 2 tab PO HS #60 tabs 05/20/22 Rx 50 mg tablet (Senokot-S) enoxaparin 40 mg/0.4 mL 40 mg (0.4 mL) subcut QAM #8 mL 03/15/23 Rx subcutaneous syringe (Lovenox) ergocalciferol (vitamin D2) 1,250 50,000 unit PO Q7D@0900 #8 caps 05/21/22 Rx mcg (50,000 unit) capsule Hospital Stay Data Consultations 05/16/22 14:37 ED Decision to Admit Stat 05/16/22 17:47 Consult Anesthesiology Routine Consult Orthopedic Surgery Routine Procedures Performed Operation Date: 05/17/22 07:30 Actual Procedures p Left Cemented Bipolar Hip(Left) - Dusty Clemons MD Diagnostic Imagining Performed Abdomen/Pelvis CT 05/16/22 11:43 CT SCAN OF THE CHEST, ABDOMEN, AND PELVIS WITH IV CONTRAST CLINICAL HISTORY: Trauma. Fall. COMPARISON STUDY: Chest CT dated 11/24/2017. Abdominal CT dated 07/25/2017. TECHNIQUE: Following the IV administration of 90 of Optiray 350, CT scan of the chest, abdomen, and pelvis was performed from the thoracic inlet to the proximal femora. Images are reviewed in the axial, sagittal, and coronal planes. IV contrast was administered without complication. A dose lowering technique was utilized adhering to the principles of ALARA. The examinations are degraded by streak artifact from the arms which could not be elevated above the chest or abdomen. FINDINGS: CHEST: Thyroid: Imaged portions of the thyroid gland are normal in size and attenuation. Thoracic aorta: There is atherosclerotic calcification of the thoracic aorta, which is normal in caliber and demonstrates standard 3-vessel arch anatomy. No dissection is seen. Pulmonary vasculature: The pulmonary trunk is normal in caliber. There are no filling defects identified in the central pulmonary vessels to indicate pulmonary embolus. Note that this examination was not protocoled for evaluation of the pulmonary arteries. Heart: The heart is enlarged and without pericardial effusion. The mitral annulus is densely calcified. There are also coronary artery calcifications. Lungs and pleural spaces: Evaluation of the lung parenchyma is degraded by motion artifact. There is a small left pleural effusion with left basilar atelectasis. No pleural effusion is seen on the right. No airspace consolidation typical for pneumonia or pleural effusion is identified. The trachea and central airways are clear. Foci of scarring/atelectasis are noted throughout both lungs. Mild intralobular septal thickening suggests fluid overload. There are scattered calcified granulomas. A 4 mm calcification in a nodule in the right lower lobe on image #198 has been present dating back to 2018. A small fat-containing Bochdalek hernia is noted on the right. Mediastinum: There is no mediastinal hematoma or lymphadenopathy. Monse: Clear. Axillae: There is no axillary lymphadenopathy. Bony thorax: The skeletal structures are osteopenic. There is an impacted and comminuted fracture of the left humeral head and neck with surrounding hemorrhage. The remainder of the bony thorax appears intact. No lytic or blastic lesions are identified. Degenerative change and hyperkyphosis is noted in the thoracic spine. Soft tissues: The right breast is not identified and presumed surgically absent. ABDOMEN AND PELVIS: Liver: The contrast-enhanced liver is normal in size and demonstrates heterogeneously diminished attenuation indicating steatosis. Nodularity of the hepatic surface contour suggestive of a morphologic change of cirrhosis. There is mild intrahepatic biliary ductal dilatation. The hepatic veins and portal veins are patent. Gallbladder: Surgically absent noting clips in the gallbladder fossa. Spleen: Normal in size and attenuation. Pancreas: Unremarkable. Adrenal glands: Mild thickening of the adrenal glands is similar to previous. Kidneys: The contrast enhanced kidneys are normal in size and without hydronephrosis. The kidneys enhance symmetrically. Abdominal vasculature: The abdominal aorta is normal in course and caliber noting advanced atherosclerotic calcification. Bowel: There is mild colonic diverticulosis without CT evidence of acute diver ticulitis. No bowel obstruction is seen. A tiny duodenal diverticulum is incidentally noted. The appendix is normal as visualized. Peritoneum: There is no intraperitoneal free air or abdominal ascites. There is a fat-containing umbilical hernia. Lymphadenopathy: None. Pelvic viscera: The bladder is normal as visualized. The uterus is surgically absent. No adnexal lesion is seen. Skeletal structures: The skeletal structures are osteopenic. There is an age indeterminant impacted and displaced subcapital fracture of the left proximal femur. The lumbosacral spine, bony pelvis, and right proximal femur appear intact. There is moderate lumbosacral spondylosis. No lytic or blastic lesions are seen. IMPRESSION: 1. There is an acute impacted and comminuted fracture of the left humeral head and neck with surrounding hemorrhage. 2. There is an age indeterminant impacted and displaced subcapital fracture of the left proximal femur. 3. Small left pleural effusion. 4. There is no airspace consolidation or pneumothorax. 5. There is no evidence of solid organ injury in the abdomen or pelvis. 6. The liver steatotic. Nodularity of the surface contour suggest morphologic change of cirrhosis. 7. The heart is enlarged. Intralobular septal thickening suggests mild congestive change/fluid overload. Correlate clinically. 8. Additional findings as above. ACT 112: Negative or not required by law. Electronically signed by: Waylon Berry M.D. 05/16/2022 2:[address] 05/16/22 11:43 CT cervical spine wo con CT DOSE: 2161.29 mGy.cm CLINICAL HISTORY: 86 years-old Female with fall. Acute neck pain status post fall COMPARISON: 07/07/2021 TECHNIQUE: Multiple axial CT images of the cervical spine were obtained without contrast. A dose lowering technique was utilized adhering to the principles of ALARA. FINDINGS: There is degenerative partial bony fusion at the C2-C3 level. Multilevel intervertebral disc space narrowing, severe at C5-C6 and C6 or C7. Multilevel moderate to severe facet arthrosis. Multilevel neural foraminal narrowing. There is an 8 mm hypodense left-sided thyroid nodule. The thyroid parenchyma is diffusely heterogeneous with subcentimeter thyroid nodules. Calcified plaque of the carotid bulbs. No pneumothorax. IMPRESSION: No acute cervical spine fracture or subluxation. ACT 112: Negative or not required by law. The above report was generated using voice recognition software. It may contain grammatical, syntax or spelling errors. Electronically signed by: Shaquille Lew M.D. 05/16/2022 2:[address] 05/16/22 11:43 CT SCAN OF THE CHEST, ABDOMEN, AND PELVIS WITH IV CONTRAST CLINICAL HISTORY: Trauma. Fall. COMPARISON STUDY: Chest CT dated 11/24/2017. Abdominal CT dated 07/25/2017. TECHNIQUE: Following the IV administration of 90 of Optiray 350, CT scan of the chest, abdomen, and pelvis was performed from the thoracic inlet to the proximal femora. Images are reviewed in the axial, sagittal, and coronal planes. IV contrast was administered without complication. A dose lowering technique was utilized adhering to the principles of ALARA. The examinations are degraded by streak artifact from the arms which could not be elevated above the chest or abdomen. FINDINGS: CHEST: Thyroid: Imaged portions of the thyroid gland are normal in size and attenuation. Thoracic aorta: There is atherosclerotic calcification of the thoracic aorta, which is normal in caliber and demonstrates standard 3-vessel arch anatomy. No dissection is seen. Pulmonary vasculature: The pulmonary trunk is normal in caliber. There are no filling defects identified in the central pulmonary vessels to indicate pulmonary embolus. Note that this examination was not protocoled for evaluation of the pulmonary arteries. Heart: The heart is enlarged and without pericardial effusion. The mitral annulus is densely calcified. There are also coronary artery calcifications. Lungs and pleural spaces: Evaluation of the lung parenchyma is degraded by motion artifact. There is a small left pleural effusion with left basilar atelectasis. No pleural effusion is seen on the right. No airspace consolidation typical for pneumonia or pleural effusion is identified. The trachea and central airways are clear. Foci of scarring/atelectasis are noted throughout both lungs. Mild intralobular septal thickening suggests fluid overload. There are scattered calcified granulomas. A 4 mm calcification in a nodule in the right lower lobe on image #198 has been present dating back to 2018. A small fat-containing Bochdalek hernia is noted on the right. Mediastinum: There is no mediastinal hematoma or lymphadenopathy. Monse: Clear. Axillae: There is no axillary lymphadenopathy. Bony thorax: The skeletal structures are osteopenic. There is an impacted and comminuted fracture of the left humeral head and neck with surrounding hemorrhage. The remainder of the bony thorax appears intact. No lytic or blastic lesions are identified. Degenerative change and hyperkyphosis is noted in the thoracic spine. Soft tissues: The right breast is not identified and presumed surgically absent. ABDOMEN AND PELVIS: Liver: The contrast-enhanced liver is normal in size and demonstrates heterogeneously diminished attenuation indicating steatosis. Nodularity of the hepatic surface contour suggestive of a morphologic change of cirrhosis. There is mild intrahepatic biliary ductal dilatation. The hepatic veins and portal veins are patent. Gallbladder: Surgically absent noting clips in the gallbladder fossa. Spleen: Normal in size and attenuation. Pancreas: Unremarkable. Adrenal glands: Mild thickening of the adrenal glands is similar to previous. Kidneys: The contrast enhanced kidneys are normal in size and without hydronephrosis. The kidneys enhance symmetrically. Abdominal vasculature: The abdominal aorta is normal in course and caliber noting advanced atherosclerotic calcification. Bowel: There is mild colonic diverticulosis without CT evidence of acute diverticulitis. No bowel obstruction is seen. A tiny duodenal diverticulum is incidentally noted. The appendix is normal as visualized. Peritoneum: There is no intraperitoneal free air or abdominal ascites. There is a fat-containing umbilical hernia. Lymphadenopathy: None. Pelvic viscera: The bladder is normal as visualized. The uterus is surgically absent. No adnexal lesion is seen. Skeletal structures: The skeletal structures are osteopenic. There is an age indeterminant impacted and displaced subcapital fracture of the left proximal femur. The lumbosacral spine, bony pelvis, and right proximal femur appear intact. There is moderate lumbosacral spondylosis. No lytic or blastic lesions are seen. IMPRESSION: 1. There is an acute impacted and comminuted fracture of the left humeral head and neck with surrounding hemorrhage. 2. There is an age indeterminant impacted and displaced subcapital fracture of the left proximal femur. 3. Small left pleural effusion. 4. There is no airspace consolidation or pneumothorax. 5. There is no evidence of solid organ injury in the abdomen or pelvis. 6. The liver steatotic. Nodularity of the surface contour suggest morphologic change of cirrhosis. 7. The heart is enlarged. Intralobular septal thickening suggests mild congestive change/fluid overload. Correlate clinically. 8. Additional findings as above. ACT 112: Negative or not required by law. Electronically signed by: Waylon Berry M.D. 05/16/2022 2:[address] 05/16/22 11:43 CT SCAN OF THE BRAIN WITHOUT IV CONTRAST CLINICAL HISTORY: Trauma. Fall. COMPARISON STUDY: CT of the brain dated 07/07/2021. TECHNIQUE: Unenhanced axial CT scan of the brain is performed from the vertex to the skull base. A dose lowering technique was utilized adhering to the principles of ALARA. FINDINGS: Brain parenchyma: There is age-related involutional change noting [id number] patchy subcortical and periventricular microangiopathic disease. There is no hemorrhage, mass effect, or evidence of acute territorial ischemia by CT criteria. Galloway-white matter differentiation is preserved. No extra-axial fluid collection is seen. Ventricles, sulci, cisterns: Prominent secondary to involutional change. Intracranial vasculature: There is atherosclerotic calcification of the cavernous carotid arteries. Calvarium: The skeletal structures are osteopenic. No depressed calvarial fr acture is seen. Sinuses and mastoids: The paranasal sinuses are clear. The mastoid air cells are well pneumatized. Orbits: The bony orbits are grossly intact. There are bilateral ocular lens implants. IMPRESSION: There is no hemorrhage, mass effect, or evidence of acute territorial ischemia by CT criteria. ACT 112: Negative or not required by law. Electronically signed by: Waylon Berry M.D. 05/16/2022 2:04 PM Hip X-Ray 05/17/22 14:05 XR hip LT min 2V CLINICAL HISTORY: Pot-Op implant position TECHNIQUE: 2 views of the left hip were obtained. Comparison: None available at the time of this dictation. FINDINGS: Patient is status post total hip arthroplasty with expected postsurgical changes including soft tissue swelling and subcutaneous emphysema. IMPRESSION: No evidence of acute osseous injury. ACT 112: Negative or not required by law. Electronically signed by: Joe Gar M.D. 05/17/2022 2:35 PM Pending Results Patient Have Any Pending Studies at Discharge: No Discharge Instructions Given to Patient (Per Discharging Provider) Keep splint and sling on left arm until clinic follow-up. ACTIVITY RECOMMENDATIONS: Physical Therapy: * Aggressive physical therapy is not usually needed. You will learn to take care of yourself safely and walk. * Follow the "Hip Precautions Instructions." * In some cases, the social media project manager at the hospital will arrange to have a therapist come to your house for the first couple of weeks to help you learn these skills. * You need to practice on your own or with the help of a family member as needed. * When you learn these skills, most of the therapy can be done on your own. Home Exercise: * You were shown a series of exercises in the hospital. Do these exercises three to four times each day including the exercises you were shown in physical therapy. Walking: * Get up and walk several times each day. For the first four weeks, try not to stand or walk for more than one hour at a time. If you do stand or walk for more than one hour, you will not hurt anything, but your leg will likely swell. * As you feel comfortable, you may change from the walker or crutches to a cane and then to independent walking. MEDICATIONS: New Medicine: * You will likely be taking one or more of these medicines: 1. Tramadol - Take, as directed, when you need it, every six hours to control your pain. 2. Aspirin - Thins your blood to lessen the chance of forming a blood clot. * The most common side effects of pain medicine and iron are nausea and constipation. If nausea or constipation is too much of a problem or if you have any qu estions about your new medicines or doses, call [facility] at [phone]. We will try to help you manage these issues. "VERY IMPORTANT TO READ AND REVIEW" Pain: * The immediate post-operative period after hip replacement surgery is often quite painful. * You are given a prescription for pain medicine. You should take it, as directed, when you need it, especially before physical therapy and before going to bed. Pain that interferes with sleep is very common and can last several months. * You will likely need pain medicine for the first two to four weeks. It will not stop all of the pain. The pain will lessen and as you feel better, you may change to milder pain medicine such as Tylenol. * The most common side effects of pain medicine are nausea and constipation, so don't take more than you need. SPECIAL CARE INSTRUCTIONS: TEDs/Elastic Stockings: * The white elastic stockings help limit swelling and prevent blood clots from forming in your legs. The more you wear them, the more they work. * Wear them for six weeks. Incision Site Care: * Remove dressing postoperative day 2 and then shower. Keep direct shower pressure off the incision site. * After showering, cover emiliana with dry gauze and change daily or more frequently if the dressing is getting saturated with drainage. * May completely stop using bandage if wound is dry and no drainage * Emiliana are removed between 2 and 3 weeks post-op. If your follow-up appointment is made before 2 weeks, please have your appointment re- scheduled. It is too early to remove the emiliana. Prevention of Infection: * Take antibiotics one hour before any dental cleaning, dental work, urological procedure, gastrointestinal procedure or any invasive surgery in order to prevent your new joint from getting infected. * You may get the antibiotics from the doctor performing the procedure or you may call our office at before and we will call in a prescription to the pharmacy of your choice. Things to Watch For: * Drainage from the incision site that occurs more than one week after your surgery. * Severely increased leg pain or swelling. * Increased redness at the incision site. * Fever above 102 degrees Fahrenheit. * Unusual chest pain or shortness of breath. * Unusual pain or burning with urination. Call [facility] at with any of the above problems or if you have any questions about your medicines or recovery. FOLLOW UP VISIT: Make an appointment to see your doctor for approximately two weeks after surgery for a progress check and staple removal by calling the office at . Total Time Total Time Spent Total Time Spent (In Minutes): 45 minutes Supervising Physician Co-Signing Physician Notes Patient seen and examined Considering patient is at increased risk of VTE with h/o pAfib not on anticoagulation, h/o breast ca s/p surgery and now s/p hip surgery; will do lovenox sq 40mg for DVT prophylaxis for at least 4 weeks or ambulation improves. To hold off aspirin while on lovenox I educated patient about this. Agree with other plans as detailed by Marsha Granados PA-C
== END 2022-05-21 14:14 | DRG 522 ==
LOC: ED 11:20 → SUATTDRO 15:00 → 3E 15:00
DX: Z79.899 Other long term (current) drug therapy; I48.0 Paroxysmal atrial fibrillation; G20 Parkinson's disease; I10 Essential (primary) hypertension; M80.022A Age-related osteoporosis with current pathological fracture, left humerus, initial encounter for fracture; K58.9 Irritable bowel syndrome, unspecified; M80.052A Age-related osteoporosis with current pathological fracture, left femur, initial encounter for fracture; Z88.0 Allergy status to penicillin; Z91.048 Other nonmedicinal substance allergy status; Z20.822 Contact with and (suspected) exposure to COVID-19; Z79.82 Long term (current) use of aspirin; R09.02 Hypoxemia; W01.0XXA Fall on same level from slipping, tripping and stumbling without subsequent striking against object, initial encounter; K21.9 Gastro-esophageal reflux disease without esophagitis; Z88.5 Allergy status to narcotic agent; F32.A Depression, unspecified; Y92.481 Parking lot as the place of occurrence of the external cause

== ENCOUNTER 2022-07-15 14:31 | Inpatient (IN) ==
--- NOTE | 2022-07-15 15:00 | Emergency Department Note ---
History of Present Illness General Chief complaint: Leg Injury/Pain Stated complaint: BLOOD CLOT IN LEG Time Seen by Provider: 07/15/22 14:36 Source: patient, family (Granddaughter who is at the bedside), RN notes reviewed and old records reviewed (Ultrasound report from earlier today showed a large DVT in the left lower extremity) Mode of arrival: ambulatory Limitations: no limitations History of Present Illness Maximum Pain Intensity: 6 This patient is a 87-year-old female who comes in after being diagnosed with a DVT in the left lower extremity. She has been having pain and swelling in that leg. She fell about 2 months ago and broke her left hip and also left elbow and shoulder. She has been recovering at the care home. She has not felt well for the last several days or so she has normally lower extremity edema but it is worse mostly on the left side. She has no history of blood clots prior no blood thinner use. She does have history of A-fib paroxysmally but does not look like she is on blood thinners she also has had a cough and some dyspnea on exertion with using her walker and they worked her up for pneumonia but said her lungs were clear occasionally she may have some pleurisy. No chest pain or heart racing she does have history of A-fib. She fell last week and did not hit her head or injure self this time. Denies any focal numbness or weakness. No abdominal pain. Home Medications Medication Instructions Recorded Confirmed Type oxycodone 5 mg tablet 2.5 mg PO Q4H PRN moderate to 05/20/22 07/14/22 Rx severe pain (5,6,7,8,9,10) #12 tabs Walking Cane #1 ea 06/06/22 07/14/22 Rx acetaminophen 325 mg tablet 650 mg PO Q4H PRN mild pain (scale 06/16/22 07/14/22 Rx score 1-4) #120 tabs cyanocobalamin (vitamin B-12) 1,000 mcg PO DAILY #90 tabs 06/16/22 07/14/22 Rx 1,000 mcg tablet (Vitamin B-12) escitalopram oxalate 10 mg tablet 10 mg PO QAM #90 tabs 06/16/22 07/14/22 Rx furosemide 20 mg tablet 20 mg PO DAILY #90 tabs 06/16/22 07/14/22 Rx lanolin alcohols-mineral 1 applic topical BID PRN dry skin, 06/16/22 07/14/22 Rx oil-w.petrolatum-ceresin topical skin breakdown #454 grams cream (Eucerin topical cream) losartan 50 mg tablet 50 mg PO HS #90 tabs 06/16/22 07/14/22 Rx meclizine 25 mg tablet 25 mg PO TID PRN Dizziness #60 tabs 06/16/22 07/14/22 Rx omeprazole 20 mg capsule,delayed 20 mg PO QAM #90 caps 06/16/22 07/14/22 Rx release verapamil 120 mg tablet 120 mg PO BID #180 tabs 06/17/22 07/14/22 Rx sennosides 8.6 mg-docusate sodium 2 tab PO HS PRN constipation #180 07/02/22 07/14/22 Rx 50 mg tablet (Senokot-S) tabs cholestyramine-aspartame 4 gram 4 g PO DAILY #60 ea 07/14/22 07/14/22 Rx oral powder for susp in a packet (Cholestyramine Light) coconut oil 1,000 mg capsule 1,000 mg PO DAILY #90 caps 07/14/22 07/14/22 Rx ergocalciferol (vitamin D2) 1,250 50,000 unit PO Q7D@0900 #12 caps 07/14/22 07/14/22 Rx mcg (50,000 unit) capsule loratadine 10 mg tablet 10 mg PO DAILY #90 tabs 07/14/22 07/14/22 Rx potassium chloride 10 mEq 10 meq PO BID #180 tabs 07/15/22 Rx tablet,extended release Allergies Allergy/AdvReac Type Severity Reaction Status Date / Time adhesive Allergy Intermediate rash Verified 07/14/22 10:26 codeine Allergy Intermediate ITCHING Verified 07/14/22 10:26 oxycodone Allergy Intermediate ITCHING Verified 07/14/22 10:26 Penicillins Allergy Intermediate ITCHING Verified 07/14/22 10:26 Past Med/Surg History Medical History Diaphragmatic hernia Diverticulosis of colon HTN (hypertension) Surgical History History of cholecystectomy History of right mastectomy Family History Sister Breast cancer Lung cancer Ovarian cancer Father Stomach cancer Prostate cancer Brother Myocardial infarction Diabetes Mother Hypertension Diabetes Denies family history of Colorectal cancer Social History Smoking Status: Never smoker Second Hand Exposure: No; Do You Dip or Chew Tobacco: No; Hx Alcohol Use: No Hx Substance Use: No Preferred Language: Citizen Of [place] Communication Ability: Effective T[employer] Operator Required: No Beliefs That Will Affect Care: None Current Living Situation: Alone Current Living Situation Comment: lives next to son and daughter in law Feels Safe at Home: Yes Assistive Devices: Cane and Walker Review of Systems A total of 10 systems reviewed and were otherwise negative Physical Exam Vital Signs Vital Signs - 24 hr 07/15/22 14:34 07/15/22 14:52 07/15/22 15:37 Temperature 36.5 C Temperature Source Temporal Artery Scan Pulse Rate 79 70 67 Pulse Rate [Bilateral Apical] Pulse Rate from SpO2 Sensor Pulse Rhythm Regular Respiratory Rate 20 20 Respiratory Effort / Characteristics Non-Labored Respiratory Depth Normal Blood Pressure 121/59 L Blood Pressure [Left Arm] Blood Pressure Mean 79 Blood Pressure Mean [Left Arm] Pulse Oximetry 92 93 Oxygen Delivery Method Room Air Room Air Oxygen Flow Rate Sepsis Recent Fever Within 48 Hours No Sepsis New/Unexplained Change in Mental Status No Sepsis Action Taken by Nursing No Action Required 07/15/22 15:19 07/15/22 15:30 07/15/22 15:30 Temperature Temperature Source Pulse Rate 70 70 Pulse Rate [Bilateral Apical] Pulse Rate from SpO2 Sensor 70 Pulse Rhythm Respiratory Rate 23 22 Respiratory Effort / Characteristics Respiratory Depth Blood Pressure 135/56 L Blood Pressure [Left Arm] Blood Pressure Mean 82 Blood Pressure Mean [Left Arm] Pulse Oximetry 88 L 94 Oxygen Delivery Method Nasal Cannula Oxygen Flow Rate 2 Sepsis Recent Fever Within 48 Hours Sepsis New/Unexplained Change in Mental Status Sepsis Action Taken by Nursing 07/15/22 18:56 Temperature Temperature Source Pulse Rate Pulse Rate [Bilateral Apical] 71 Pulse Rate from SpO2 Sensor Pulse Rhythm Respiratory Rate 20 Respiratory Effort / Characteristics Non-Labored Respiratory Depth Normal Blood Pressure Blood Pressure [Left Arm] 144/59 H Blood Pressure Mean Blood Pressure Mean [Left Arm] 87 Pulse Oximetry 95 Oxygen Delivery Method Nasal Cannula Oxygen Flow Rate 2 Sepsis Recent Fever Within 48 Hours Sepsis New/Unexplained Change in Mental Status Sepsis Action Taken by Nursing General: Well developed well nourished older female who appears in no acute distress, breathing comfortably on room air. Normal speech. Answers all questions appropriately. HEENT: Normal cephalic atraumatic. Pupils are equal round and reactive to light. Extraocular movements are intact. Oropharynx is pink with moist mucous membranes. No swelling of the mouth lips or tongue. Neck: Supple with a midline trachea. No meningeal signs or stiffness, no JVD or bruits. No Stridor. Chest: Clear to auscultation bilaterally. No wheezes or rhonchi. No increased work of breathing. Heart: Regular rate and rhythm without murmurs or gallops. Abdomen: Soft nontender, nondistended without rebound guarding or rigidity. Extremities: No cyanosis or clubbing. She has bilateral lower extremity edema left much greater than the right.'s not red or warm. Spine/Back. Non tender to palpation. No CVA tenderness Skin: Good turgor without rashes. Neurologic exam: Cranial nerves two through 12 are intact. Motor and sensation are intact and symmetrical throughout. Course Administered Medications Heparin Sodium/Dextrose (Heparin Sodium/Dextrose) 25,000 units in 500 mls @ 24 mls/hr IV .[id number] [facility]; Protocol Stop: 08/14/22 17:44 Last Admin: 07/15/22 18:28 Dose: 1,200 units/hr, 24 mls/hr Documented By: URIEL Co-signed By: MARITZA Discontinued Medications Heparin Sodium (Porcine) (Heparin Sod (Porcine) 1000 Unit/Ml) 1 units IV NOW ONE Stop: 07/15/22 17:36 Last Admin: 07/15/22 18:26 Dose: Not Given Documented By: RSJuanpablo Heparin Sodium (Porcine) (Heparin Sod (Porcine) 1000 Unit/Ml) 5,000 units IV NOW ONE Stop: 07/15/22 17:46 Last Admin: 07/15/22 18:28 Dose: 5,000 units Documented By: RSJuanpablo Co-signed By: MARITZA Heparin Sodium/Dextrose (Heparin Iv Adult Wt-Based Standard With Bolus Protocol) 1 each IV NOW [facility]; Protocol Stop: 07/15/22 17:21 Last Admin: 07/15/22 18:26 Dose: Not Given Documented By: URIEL Ioversol (Optiray 320 500ml) 116 ml IV ONCE ONE Stop: 07/15/22 17:03 Last Admin: 07/15/22 17:03 Dose: 116 ml Documented By: NANCY Critical Care Time Critical Care Time: Yes Total Critical Care Time: 30 Due to the patient's large DVT with concern for PE that had a large clot burden need for consultation, IV medications and further treatment and evaluation I have personally spent greater than 30 minutes of critical care time in the direct management of this patient. This includes bedside care, interpretation of diagnostic studies, and testing, discussion with consultants, patient, and family members, and other required patient management activities. This 30 minutes is in excess of all separately billable procedures. Medical Decision Making Differential Diagnosis DVT, PE, blood clotting disorder, electrolyte or metabolic abnormality, infection, COVID Medical Records Attestation: I reviewed the patient's medical records. Home Medications Current Medication List: was personally reviewed by me Laboratory Data Attestation: I reviewed the patient's lab results. 07/15/22 15:53 07/15/22 15:53 Lab Results 07/15/22 07/15/22 07/15/22 Range/Units 15:02 15:53 15:53 WBC 9.37 (4.8-10.8) K/ul RBC 3.93 L (4.20-5.40) M/uL Hgb 10.9 L (12.0-16.0) g/dl Hct 33.4 L (37.0-47.0) % MCV 85.0 (80.0-100.0) fL MCH 27.7 (25.0-34.0) pg MCHC 32.6 (32.0-36.0) g/dL RDW Std Deviation 43.4 (36.4-46.3) fL RDW Coeff of [place]sabel 14.1 (11.5-14.5) % Plt Count 369 (130-400) K/uL MPV 9.4 (9.4-12.4) fL Immature Gran % (Auto) 0.5 % Neut % (Auto) 68.3 % Lymph % (Auto) 20.6 % [place] % (Auto) 10.1 % Eos % (Auto) 0.2 % Baso % (Auto) 0.3 % Neut # (Auto) 6.39 (1.40-6.50) K/uL Lymph # (Auto) 1.93 (1.2-3.4) K/uL [place] # (Auto) 0.95 H (0.11-0.59) K/uL Eos # (Auto) 0.02 (0-0.50) K/uL Baso # (Auto) 0.03 (0-0.2) K/uL Immature Gran # (Auto) 0.05 (0.01-0.20) K/uL PT Cancelled INR Cancelled APTT Cancelled PTT Ratio Cancelled Sodium (136-145) mmol/L Potassium (3.5-5.1) mmol/L Chloride (98-107) mmol/L Carbon Dioxide (21-32) mmol/L Anion Gap (3-11) BUN (6-23) mg/dl Creatinine (0.6-1.2) mg/dl Est Cr Clr Drug Dosing ml/min Est GFR ( Amer) ml/min Est GFR (Non-Af Amer) ml/min BUN/Creatinine Ratio (10-20) Glucose (70-99(Fasting)) mg/dl Calcium (8.6-10.3) mg/dl Total Bilirubin (0.2-1.0) mg/dl AST (13-39) U/L ALT (7-52) U/L Alkaline Phosphatase (34-104) U/L Troponin I High Sens (0-14) pg/ml Total Protein (6.0-8.3) gm/dl Albumin (3.4-5.0) gm/dl Globulin (2.5-4.0) gm/dl Albumin/Globulin Ratio (0.9-2) Lipase (11-82) U/L Procalcitonin (0-0.5) ng/ml SARS-CoV-2, RNA, NAAT NEGATIVE (NEGATIVE) 07/15/22 07/15/22 07/15/22 Range/Units 15:53 15:53 17:15 WBC (4.8-10.8) K/ul RBC (4.20-5.40) M/uL Hgb (12.0-16.0) g/dl Hct (37.0-47.0) % MCV (80.0-100.0) fL MCH (25.0-34.0) pg MCHC (32.0-36.0) g/dL RDW Std Deviation (36.4-46.3) fL RDW Coeff of Ysabel (11.5-14.5) % Plt Count (130-400) K/uL MPV (9.4-12.4) fL Immature Gran % (Auto) % Neut % (Auto) % Lymph % (Auto) % [place] % (Auto) % Eos % (Auto) % Baso % (Auto) % Neut # (Auto) (1.40-6.50) K/uL Lymph # (Auto) (1.2-3.4) K/uL [place] # (Auto) (0.11-0.59) K/uL Eos # (Auto) (0-0.50) K/uL Baso # (Auto) (0-0.2) K/uL Immature Gran # (Auto) (0.01-0.20) K/uL PT 13.1 H INR 1.2 H APTT 28.0 PTT Ratio 1.0 Sodium 137 (136-145) mmol/L Potassium 3.6 (3.5-5.1) mmol/L Chloride 102 (98-107) mmol/L Carbon Dioxide 27 (21-32) mmol/L Anion Gap 8 (3-11) BUN 14 (6-23) mg/dl Creatinine 0.67 (0.6-1.2) mg/dl Est Cr Clr Drug Dosing 60.8 ml/min Est GFR ( Amer) 92.2 ml/min Est GFR (Non-Af Amer) 79.6 ml/min BUN/Creatinine Ratio 20.9 H (10-20) Glucose 98 (70-99(Fasting)) mg/dl Calcium 8.5 L (8.6-10.3) mg/dl Total Bilirubin 0.7 (0.2-1.0) mg/dl AST 42 H (13-39) U/L ALT 31 (7-52) U/L Alkaline Phosphatase 125 H (34-104) U/L Troponin I High Sens 22.6 H (0-14) pg/ml Total Protein 5.9 L (6.0-8.3) gm/dl Albumin 2.7 L (3.4-5.0) gm/dl Globulin 3.2 (2.5-4.0) gm/dl Albumin/Globulin Ratio 0.8 L (0.9-2) Lipase 25 (11-82) U/L Procalcitonin 0.06 (0-0.5) ng/ml SARS-CoV-2, RNA, NAAT (NEGATIVE) Imaging Data My Impression: CT angiographythere is a large PE burden on the right pulmonary artery. It is not a saddle emboli but does involve a large clot burden of central clot and downstream clot on the right Radiologist's Impression: Chest CTA 07/15/22 14:52 CT angio chest PE protocol CLINICAL HISTORY: Chest Pain, eval for PE TECHNIQUE: Multidetector row helical CT of the chest was performed with angiographic protocol. Coronal and sagittal reformations were obtained. Coronal and sagittal MIPS were obtained from the axial data set and were submitted for review. Automated dose lowering techniques and/or adjustment according to patient size were utilized for this exam. CT DOSE: 515.10 mGy.cm Comparison: Comparison is made to CT chest 05/16/2022 FINDINGS: Lungs and pleura: Bilateral pleural effusions are seen, left greater than right, the right effusion is new from prior exam. There is airspace opacity in the r ight greater than left lower lungs with interstitial thickening as well. Heart and pericardium: Mitral annular calcifications are seen. Vessels: There is a large right pulmonary embolus in the main pulmonary artery extending to multiple branches primarily of the right lower lobe. Mediastinum and noel: Subcentimeter lymph nodes are seen. Chest wall and lower neck: Unremarkable. Abdomen: Unremarkable. Bones: Left humeral fracture is again seen. Degenerative changes are seen in the spine with exaggeration of kyphosis. IMPRESSION: 1. Large pulmonary embolus in the right main pulmonary artery with extension to branch vessels predominantly in the right lower lobe. There is airspace opacity which likely reflects developing infarct. 2. Bilateral pleural effusions. 3. Left lower lung atelectasis. ACT 112: Negative or not required by law. Electronically signed by: Joe Gar M.D. 07/15/2022 6:16 PM ECG Data Indication: + SOB/dyspnea Rate (beats per minute): 71 Rhythm: + normal sinus ECG Intervals/blocks: + Incomplete right bundle branch block (RSR prime), + Normal QT and + Normal TN ECG [place]: + Normal ECG ST segments: + Normal ST segments ECG Findings: no PACs or no PVCs Comparison ECG Date: from (05/16/22) Change: no significant change MDM Narrative This patient comes in as described above. She was placed on a phototypesetting equipment monitor in room C8. I evaluated her and talked to the patient's granddaughter at length is at the bedside I reviewed her ultrasound which was done prior to arrival she has a large DVT and will need anticoagulation. Given the clot burden I suspect she will need IV anticoagulation with heparin. Multiple blood testing was obtained she has no history of DVT she has a history of PE but is not on any blood thinners it sounds like it is part paroxysmal. She has had some dyspnea on exertion so I did order CT angiography to rule out PE as well. She was reassessed frequently EKG was also obtained. EKG does not show any acute ischemic changes and no change compared to old. Her COVID test was negative. She has no significant electrolyte or metabolic abnormality. Her troponin is minimally elevated 22. She has no chest pain or shortness of breath. Her CT angiography does show a large PE on the right with a large clot burden. I discussed this in consultation with Heath garcía ED pharmacist and he agrees that IV heparin with IV bolus is the best choice. The patient has paroxysmal A-fib in the past because of her Parkinson's and falls they have chosen not to put on anticoagulation but at this point I do think she needs anticoagulation. Her vital signs have been stable with her blood pressure. She is nontachycardic. She did receive the IV bolus of heparin and hourly rate. I have consulted Dr. Andrea Barron to see the patient in the ER for admission and further treatment and evaluation. I have discussed the case at length with Dr. Barron. The patient did have a negative COVID test. Continuous cardiac monitoring: Orders placed in EMR for continuous phototypesetting equipment monitor. Upon my evaluation she was noted to be in normal sinus rhythm with a rate of 65 Impression & Plan Pulmonary embolism, DVT (deep venous thrombosis), Left leg swelling, Paroxysmal A-fib, Parkinsons disease, Lab test negative for COVID-19 virus Discharge Plan Visit Data Chief Complaint: Leg Injury/Pain Stated Complaint: BLOOD CLOT IN LEG ED Provider: Ananda Verdugo Discharge Problem: Pulmonary embolism, DVT (deep venous thrombosis), Left leg swelling, Paroxysmal A-fib, Parkinsons disease, Lab test negative for COVID-19 virus Forms Stand Alone Forms: My [facility] Prescriptions Prescriptions: No Action (DME) Walking Cane Misc See Rx Instructions .MEDSUPPLY Qty: 1 0RF Rx Instructions: As directed verapamil 120 mg tablet 120 mg PO BID Qty: 180 3RF sennosides-docusate sodium [Senokot-S] 8.6-50 mg tablet 2 tab PO HS PRN (Reason: constipation) Qty: 180 3RF potassium chloride 10 mEq tablet extended release 10 meq PO BID Qty: 180 3RF coconut oil 1,000 mg capsule 1,000 mg PO DAILY Qty: 90 3RF ergocalciferol (vitamin D2) 1,250 mcg (50,000 unit) capsule 50,000 unit PO Q7D@0900 Qty: 12 3RF loratadine 10 mg tablet 10 mg PO DAILY Qty: 90 3RF cholestyramine-aspartame [Cholestyramine Light] 4 gram powder in packet 4 g PO DAILY Qty: 60 5RF Rx Instructions: administer w/meal; avoid other meds within 1hr before or 4-6hr after dose acetaminophen 325 mg tablet 650 mg PO Q4H PRN (Reason: mild pain (scale score 1-4)) Qty: 120 11RF cyanocobalamin (vitamin B-12) [Vitamin B-12] 1,000 mcg tablet 1,000 mcg PO DAILY Qty: 90 3RF escitalopram oxalate 10 mg tablet 10 mg PO QAM Qty: 90 3RF furosemide 20 mg tablet 20 mg PO DAILY Qty: 90 3RF losartan 50 mg tablet 50 mg PO HS Qty: 90 3RF meclizine 25 mg tablet 25 mg PO TID PRN (Reason: Dizziness) Qty: 60 5RF omeprazole 20 mg capsule,delayed release(DR/EC) 20 mg PO QAM Qty: 90 3RF Eucerin Cream 1 applic topical BID PRN (Reason: dry skin, skin breakdown) Qty: 454 5RF oxycodone 5 mg Tablet 2.5 mg PO Q4H PRN (Reason: moderate to severe pain (5,6,7,8,9,10)) Qty: 12 0RF Referrals Referrals: Vito Gordon DO [Primary Care Provider] - Pulmonary embolism Qualifiers: Pulmonary embolism type: multiple subsegmental (without acute cor pulmonale) Qualified Code(s): I26.94 - Multiple subsegmental pulmonary emboli without acute cor pulmonale DVT (deep venous thrombosis) Qualifiers: DVT location: lower extremity Affected thrombotic vein of extremity: unspecified vein of extremity Chronicity: acute Laterality: left Qualified Code(s): I82.402 - Acute embolism and thrombosis of unspecified deep veins of left lower extremity
[2022-07-15 16:19] LABS: Basophils # (auto) 0.03 K/uL (0-0.2); Basophils % (auto) 0.3 %; Eosinophils # (auto) 0.02 K/uL (0-0.50); Eosinophils % (auto) 0.2 %; Hematocrit (blood only) 33.4 % (37.0-47.0); Hemoglobin 10.9 g/dl (12.0-16.0); Immature Granulocytes # (auto) 0.05 K/uL (0.01-0.20); Immature Granulocytes % (auto) 0.5 %; Lymphocytes # (auto) 1.93 K/uL (1.2-3.4); Lymphocytes % (auto) 20.6 %; Mean Corpuscular Hemoglobin 27.7 pg (25.0-34.0); Mean Corpuscular Hgb Conc 32.6 g/dL (32.0-36.0); Mean Platelet Volume 9.4 fL (9.4-12.4); Monocytes # (auto) 0.95 K/uL (0.11-0.59); Monocytes % (auto) 10.1 %; Neutrophils # (auto) 6.39 K/uL (1.40-6.50); Neutrophils % (auto) 68.3 %; Platelet Count 369 K/uL (130-400); RDW Coefficient of Variation 14.1 % (11.5-14.5); RDW Standard Deviation 43.4 fL (36.4-46.3); Red Blood Count 3.93 M/uL (4.20-5.40); White Blood Count 9.37 K/ul (4.8-10.8)
[2022-07-15 16:33] LABS: Albumin Globulin Ratio 0.8 (0.9-2); Albumin Level 2.7 gm/dl (3.4-5.0); BUN Creatinine Ratio 20.9 (10-20); Bilirubin,Total 0.7 mg/dl (0.2-1.0); Calcium 8.5 mg/dl (8.6-10.3); Creatinine Clr Calc Pharmacy 60.8 ml/min; Est GFR (African American) 92.2 ml/min; Est GFR (Non-African American) 79.6 ml/min; Globulin 3.2 gm/dl (2.5-4.0); Potassium 3.6 mmol/L (3.5-5.1); Total Protein 5.9 gm/dl (6.0-8.3)
[2022-07-15 16:37] LABS: Troponin I High Sensitivity 22.6 pg/ml (0-14)
[2022-07-15] MEDS ORDERED: OPTIRAY 320 500ml IV ONE (17:02)
[2022-07-15] MEDS ORDERED: Heparin IV Adult Wt-Based Standard WITH Bolus Protocol IV STA (17:20)
[2022-07-15] MEDS ORDERED: HEPARIN SOD (PORCINE) 1000 UNIT/ML IV ONE ×2 (17:35→17:45)
[2022-07-15 17:57] LABS: INR 1.2 (0.9-1.1); Prothrombin Time 13.1 Seconds (9.0-12.0)
--- NOTE | 2022-07-15 18:18 | CT Scan Report ---
CT angio chest PE protocol CLINICAL HISTORY: Chest Pain, eval for PE TECHNIQUE: Multidetector row helical CT of the chest was performed with angiographic protocol. Spann l and sagittal reformations were obtained. Coronal and sagittal MIPS were obtained from the axial tanner a set and were submitted for review. Automated dose lowering techniques and/or adjustment according to patient size were utilized for this exam. CT DOSE: 515.10 mGy.cm Comparison: Comparison is made to CT chest 05/16/2022 FINDINGS: Lungs and pleura: Bilateral pleural effusions are seen, left greater than right, the right effusion i s new from prior exam. There is airspace opacity in the right greater than left lower lungs with inte rstitial thickening as well. Heart and pericardium: Mitral annular calcifications are seen. Vessels: There is a large right pulmonary embolus in the main pulmonary artery extending to multiple branches primarily of the right lower lobe. Mediastinum and noel: Subcentimeter lymph nodes are seen. Chest wall and lower neck: Unremarkable. Abdomen: Unremarkable. Bones: Left humeral fracture is again seen. Degenerative changes are seen in the spine with exaggerat ion of kyphosis. IMPRESSION: 1. Large pulmonary embolus in the right main pulmonary artery with extension to branch vessels predo minantly in the right lower lobe. There is airspace opacity which likely reflects developing infarct. 2. Bilateral pleural effusions. 3. Left lower lung atelectasis. ACT 112: Negative or not required by law. Electronically signed by: Joe Gar M.D. 07/15/2022 6:16 PM
[2022-07-15] MEDS: HEPARIN SODIUM/DEXTROSE 25,000 UNITS/500 ML BAG IV SCH (18:28)
--- NOTE | 2022-07-15 18:38 | History & Physical Report ---
Date of Service July 15, 2022 Assessment & Plan (1) Pulmonary embolism: Plan: Nb: recently switched PCP so she is now a [facility] patient despite being seen by [facility] last admission Provoked from recent surgery and lack of movement. IV heparin. Large PE with pulmonary infarction (2) Hypoxia: Plan: Suspect secondary to pulmonary embolism as above with pulmonary infarction noted on CT +/- CHF Low tolerance to start antibiotics given high risk of secondary bacterial infection. However, given procalcitonin and WBC normal on admission will defer antibiotics Incentive spirometer (3) Heart failure with acute decompensation, type unknown: Plan: Last 40mg IV now, defer further doses to oncoming provider depending on response TTE Strict I&Os, daily weights (4) Diarrhea: Plan: Chronic - noted EHR diagnosis of IBS Start cholestyramine - prescribed but not yet started this as outpatient Stool PCR requested by daughter while here (5) Paroxysmal A-fib: Plan: Previously elected against anticoagulation due to falls risk but not much Continue verapamil for rate control (6) Parkinsons disease: Plan: Continue coconut oil. Unclear why she isn't on any more treatment for this. Consider neurology inpatient consult given continued falls risk. (7) GERD (gastroesophageal reflux disease): Plan: Switch omeprazole to pantoprazole per hospital formulary (8) Depression: Plan: Continue Lexapro (9) HTN (hypertension): Plan: Hold losartan in setting of PE and need for lasix increase Continue verapamil for this and rate control Plan VTE Prophylaxis - heparin IV Diet - regular Disposition - admit to PCU Admission and Anticipated Discharge Date Admission Date: July 15, 2022 History of Present Illness Chief Complaint: DVT Primary Care Provider: DO Edda Contreras is an 87 year old female with Parkinson's disease who presents to the ER after outpatient US venous doppler showed extensive DVT. History mainly obtained from EHR and daughter at bedside but patient was able to contribute but clearly has some memory issues with timelines. She was recently admitted to [facility] from May 16 - 2022 due to left proximal femur fracture, olecranon fracture. She was treated with Lovenox post operatively for DVT prophylaxis. She was discharged to rehab at [facility] and then [facility] in spring. She followed up with her PCP yesterday and had a number of concerns. Most notably she has been too short of breath to do physical therapy, cough (occurs while talking). She was also having significant leg swelling therefore was sent for US venous doppler today which showed extensive DVT therefore she was sent straight to the ER for evaluation. Ct for PE in the ER showed extensive right pulmonary artery embolus therefore she was referred to medicine for admission and ongoing management. Regarding the shortness of breath she denies any chest pain, orthopnea, PND, palpitation or presyncope. No fever, chills, nasal congestion or sinus pain. She reports chronic diarrhea although was also recently being treated with a laxative. Stool is yellow/orange. Unknown last colonoscopy. She denies any recent change to this. Cholestyramine just prescribed yesterday for this but unclear if she has taken any doses. No nausea, vomiting, melena or hematochezia. She also uses only coconut oil for her Parkinson's disease which help with her shaking. She is planning on following up with neurology regarding this. She reports her legs sometimes just don't work. She has had a few falls since her discharge but nothing that resulted in any significant injury, most recently on July 06. Allergies Allergy/AdvReac Type Severity Reaction Status Date / Time adhesive Allergy Intermediate rash Verified 07/14/22 10:26 codeine Allergy Intermediate ITCHING Verified 07/14/22 10:26 oxycodone Allergy Intermediate ITCHING Verified 07/14/22 10:26 Penicillins Allergy Intermediate ITCHING Verified 07/14/22 10:26 Home Medications Medication Instructions Recorded Confirmed Type oxycodone 5 mg tablet 2.5 mg PO Q4H PRN moderate to 05/20/22 07/15/22 Rx severe pain (5,6,7,8,9,10) #12 tabs Walking Cane #1 ea 06/06/22 07/14/22 Rx acetaminophen 325 mg tablet 650 mg PO Q4H PRN mild pain (scale 06/16/22 07/15/22 Rx score 1-4) #120 tabs cyanocobalamin (vitamin B-12) 1,000 mcg PO DAILY #90 tabs 06/16/22 07/15/22 Rx 1,000 mcg tablet (Vitamin B-12) furosemide 20 mg tablet 20 mg PO DAILY #90 tabs 06/16/22 07/15/22 Rx lanolin alcohols-mineral 1 applic topical BID PRN dry skin, 06/16/22 07/15/22 Rx oil-w.petrolatum-ceresin topical skin breakdown #454 grams cream (Eucerin topical cream) losartan 50 mg tablet 50 mg PO HS #90 tabs 06/16/22 07/15/22 Rx meclizine 25 mg tablet 25 mg PO TID PRN Dizziness #60 tabs 06/16/22 07/15/22 Rx omeprazole 20 mg capsule,delayed 20 mg PO QAM #90 caps 06/16/22 07/15/22 Rx release verapamil 120 mg tablet 120 mg PO BID #180 tabs 06/17/22 07/15/22 Rx sennosides 8.6 mg-docusate sodium 2 tab PO HS PRN constipation #180 07/02/22 07/15/22 Rx 50 mg tablet (Senokot-S) tabs cholestyramine-aspartame 4 gram 4 g PO DAILY #60 ea 07/14/22 07/15/22 Rx oral powder for susp in a packet (Cholestyramine Light) coconut oil 1,000 mg capsule 1,000 mg PO DAILY #90 caps 07/14/22 07/15/22 Rx ergocalciferol (vitamin D2) 1,250 50,000 unit PO Q7D@0900 #12 caps 07/14/22 07/15/22 Rx mcg (50,000 unit) capsule loratadine 10 mg tablet 10 mg PO DAILY #90 tabs 07/14/22 07/15/22 Rx escitalopram oxalate 10 mg tablet 10 mg PO DAILY 07/15/22 07/15/22 History potassium chloride 10 mEq 10 meq PO DAILY 07/15/22 07/15/22 History tablet,extended release Past Med/Surg History Medical History Diaphragmatic hernia Diverticulosis of colon HTN (hypertension) Surgical History History of cholecystectomy History of right mastectomy Family History Sister Breast cancer Lung cancer Ovarian cancer Father Stomach cancer Prostate cancer Brother Myocardial infarction Diabetes Mother Hypertension Diabetes Denies family history of Colorectal cancer Social History Smoking Status: Never smoker Second Hand Exposure: No; Do You Dip or Chew Tobacco: No; Tobacco Cessation Education Requested by Patient: No Hx Alcohol Use: No Hx Substance Use: No Preferred Language: Bulgarian Communication Ability: Effective Acetylene Burner Required: No Beliefs That Will Affect Care: None Current Living Situation: Personal Care Facility Current Living Situation Comment: lives next to son and daughter in law Other Information That Helps Us Care for You: No Feels Safe at Home: Yes Safety Concerns: Feels Safe At This Time Assistive Devices: Oxygen - Continuous and Wheelchair Review of Systems Review of Systems: All systems reviewed & are unremarkable except as noted in HPI & below Physical Exam Constitutional: well developed and + frail appearing; + not well nourished and no acute distress Eyes: PERRL, conjunctivae normal, anicteric sclerae ENMT: external ear and nose normal, oropharynx normal Respiratory: normal respiratory effort; no respiratory distress Auscultation: + crackles (fine Right base > left base); breath sounds present, no diminished lung sounds, no rales and no wheezes Cardiovascular: Rate/Rhythm: regular rate and regular rhythm Heart Sounds: no murmur Extremities: + pedal edema (3+ b/l pitting) Gastrointestinal (Abdomen): normal bowel sounds, soft, nontender, no hepatosplenomegaly Musculoskeletal: no cyanosis or clubbing, extremities motor strength 5/5 Skin: no rashes, warm and dry Neurologic: moves all extremities and awake; not confused Psychiatric: Orientation: alert, oriented to person and oriented to place; + not oriented to time Results & Data Results & Data Vital Signs (Past 12 Hours) Vital Signs Temp Pulse Resp BP Pulse Ox O2 Del Method O2 Flow Rate 07/15/22 15:30 70 22 94 Nasal Cannula 2 07/15/22 15:30 135/56 L 07/15/22 15:19 70 23 88 L 07/15/22 15:37 67 07/15/22 14:52 70 20 93 Room Air 07/15/22 14:34 36.5 C 79 20 121/59 L 92 Room Air Laboratory Results Abnormal lab results 07/15/22 07/15/22 07/15/22 Range/Units 15:53 15:53 17:15 RBC 3.93 L (4.20-5.40) M/uL Hgb 10.9 L (12.0-16.0) g/dl Hct 33.4 L (37.0-47.0) % [place] # (Auto) 0.95 H (0.11-0.59) K/uL PT 13.1 H (9.0-12.0) Seconds INR 1.2 H (0.9-1.1) BUN/Creatinine Ratio 20.9 H (10-20) Calcium 8.5 L (8.6-10.3) mg/dl AST 42 H (13-39) U/L Alkaline Phosphatase 125 H (34-104) U/L Troponin I High Sens 22.6 H (0-14) pg/ml B-Natriuretic Peptide (0-100) pg/ml Total Protein 5.9 L (6.0-8.3) gm/dl Albumin 2.7 L (3.4-5.0) gm/dl Albumin/Globulin Ratio 0.8 L (0.9-2) 07/15/22 07/15/22 Range/Units 19:02 20:40 RBC (4.20-5.40) M/uL Hgb (12.0-16.0) g/dl Hct (37.0-47.0) % [place] # (Auto) (0.11-0.59) K/uL PT (9.0-12.0) Seconds INR (0.9-1.1) BUN/Creatinine Ratio (10-20) Calcium (8.6-10.3) mg/dl AST (13-39) U/L Alkaline Phosphatase (34-104) U/L Troponin I High Sens 22.5 H (0-14) pg/ml B-Natriuretic Peptide 292 H (0-100) pg/ml Total Protein (6.0-8.3) gm/dl Albumin (3.4-5.0) gm/dl Albumin/Globulin Ratio (0.9-2) Diagnostic Findings ULTRASOUND BILATERAL LOWER EXTREMITY VENOUS CLINICAL HISTORY: Lower extremity edema COMPARISON STUDY: No priors. TECHNIQUE: Real-time, grayscale, and color Doppler sonography of the deep veins of the right and left lower extremity was performed from the inguinal crease to the calf. Compression and augmentation were utilized. FINDINGS: Right lower extremity: There is no sonographic evidence of deep venous thrombosis in the right lower extremity. The common femoral, superficial femoral, and popliteal veins are patent and normally compressible. The greater saphenous vein and the profunda femoris vein at the junction with the common femoral vein are clear. The visualized calf veins are patent. A popliteal cyst measures 5.2 x 1.0 x 1.9 cm. Left lower extremity: There is extensive nearly occlusive to occlusive deep venous thrombosis throughout the left lower extremity. This extends from the common femoral vein, through the superficial femoral and popliteal vein, and into the catheter and the posterior tibial and peroneal veins. The greater saphenous vein and the profunda femoris vein at the junction with the common femoral vein are clear. Soft tissue edema is present in left leg. A popliteal cyst measures 3.9 x 0.8 x 2.1 cm. IMPRESSION: 1. There is no sonographic evidence of deep venous thrombosis in the right lower extremity. 2. Extensive nearly occlusive to occlusive deep venous thrombosis throughout the left lower extremity as above. 3. Bilateral popliteal cysts. CT angio chest PE protocol CLINICAL HISTORY: Chest Pain, eval for PE TECHNIQUE: Multidetector row helical CT of the chest was performed with angiographic protocol. Coronal and sagittal reformations were obtained. Coronal and sagittal MIPS were obtained from the axial data set and were submitted for review. Automated dose lowering techniques and/or adjustment according to patient size were utilized for this exam. CT DOSE: 515.10 mGy.cm Comparison: Comparison is made to CT chest 05/16/2022 FINDINGS: Lungs and pleura: Bilateral pleural effusions are seen, left greater than right, the right effusion is new from prior exam. There is airspace opacity in the right greater than left lower lungs with interstitial thickening as well. Heart and pericardium: Mitral annular calcifications are seen. Vessels: There is a large right pulmonary embolus in the main pulmonary artery extending to multiple branches primarily of the right lower lobe. Mediastinum and noel: Subcentimeter lymph nodes are seen. Chest wall and lower neck: Unremarkable. Abdomen: Unremarkable. Bones: Left humeral fracture is again seen. Degenerative changes are seen in the spine with exaggeration of kyphosis. IMPRESSION: 1. Large pulmonary embolus in the right main pulmonary artery with extension to branch vessels predominantly in the right lower lobe. There is airspace opacity which likely reflects developing infarct. 2. Bilateral pleural effusions. 3. Left lower lung atelectasis. Medications Administered ER Medications Given: Heparin Standard bolus and drip ECG Rate (beats per minute): 71 Rhythm: normal sinus Findings: + other (RSR pattern in V1) Comparison ECG Date: from (May 16, 2022) Change: no significant change Code Status & VTE Plan Code Status DNR/DNI VTE Prophylaxis Plan VTE Prophylaxis will be ordered: Yes PG Care Time/CCT Total # of Minutes Spent Total Time Spent with Patient: Total time spent is greater than 50% in coordination of care (as documented) at patient's floor/unit and/or counseling patient: Coding Level of Care Code 87638 INT INP/OBS CARE 375MIN Diagnoses Pulmonary embolism I26.94 Pulmonary embolism type: multiple subsegmental (without acute cor pulmonale) Hypoxia R09.02 Heart failure with acute decompensation, type unknown I50.9 Diarrhea R19.7 Paroxysmal A-fib I48.0 Parkinsons disease G20 GERD (gastroesophageal reflux disease) K21.9 Depression F32.A HTN (hypertension) I10 (1) Pulmonary embolism Pulmonary embolism type: multiple subsegmental (without acute cor pulmonale) Qualified Code(s): I26.94 - Multiple subsegmental pulmonary emboli without acute cor pulmonale
[2022-07-15] MEDS ORDERED: POTASSIUM CHLORIDE CRTAB 20 MEQ TABCR PO STA (20:25)
[2022-07-15] MEDS ORDERED: FUROSEMIDE 40 MG/4 ML VIAL IV ONE (20:25)
[2022-07-15] MEDS ORDERED: MAGNESIUM SULFATE / D5W 1 GM/100 ML BAG IV ONE (20:25)
[2022-07-15] MEDS ORDERED: oxyCODONE HCL IR 5 MG TAB (IMMEDIATE RELEASE) PO PRN (20:27)
[2022-07-15] MEDS ORDERED: EUCERIN CR 120 GM JAR TOP PRN (20:27)
[2022-07-15] MEDS: VERAPAMIL HCL 40 MG TAB PO SCH (20:58)
[2022-07-16 02:10] LABS: Partial Thromboplastin Ratio 2.4
[2022-07-16 02:15] LABS: Partial Thromboplastin Time 68.5 Seconds (21.0-31.0)
[2022-07-16] MEDS ORDERED: POTASSIUM CHLORIDE 10 MEQ TABCR PO SCH (09:00)
[2022-07-16] MEDS ORDERED: COCONUT OIL 1000 MG PO SCH (09:00)
[2022-07-16 09:15] LABS: Basophils # (auto) 0.03 K/uL (0-0.2); Basophils % (auto) 0.5 %; Eosinophils # (auto) 0.04 K/uL (0-0.50); Eosinophils % (auto) 0.6 %; Hematocrit (blood only) 34.6 % (37.0-47.0); Hemoglobin 11.6 g/dl (12.0-16.0); Immature Granulocytes # (auto) 0.03 K/uL (0.01-0.20); Immature Granulocytes % (auto) 0.5 %; Lymphocytes # (auto) 1.23 K/uL (1.2-3.4); Lymphocytes % (auto) 19.2 %; Mean Corpuscular Hemoglobin 28.2 pg (25.0-34.0); Mean Corpuscular Hgb Conc 33.5 g/dL (32.0-36.0); Mean Corpuscular Volume 84.2 fL (80.0-100.0); Mean Platelet Volume 9.4 fL (9.4-12.4); Monocytes # (auto) 0.56 K/uL (0.11-0.59); Monocytes % (auto) 8.8 %; Neutrophils # (auto) 4.51 K/uL (1.40-6.50); Neutrophils % (auto) 70.4 %; Platelet Count 390 K/uL (130-400); RDW Coefficient of Variation 14.3 % (11.5-14.5); RDW Standard Deviation 43.7 fL (36.4-46.3); Red Blood Count 4.11 M/uL (4.20-5.40)
[2022-07-16] MEDS: ESCITALOPRAM OXALATE 10 MG TAB PO SCH (09:58)
[2022-07-16] MEDS: PANTOprazole 40 MG TAB PO SCH (09:59)
[2022-07-16] MEDS: VERAPAMIL HCL 40 MG TAB PO SCH ×2 (09:59→20:33)
[2022-07-16] MEDS: CYANOCOBALAMIN (B-12) 500 MCG TABLET PO SCH (09:59)
[2022-07-16] MEDS: CHOLESTYRAMINE LIGHT 4 GM PKT PO SCH (09:59)
[2022-07-16] MEDS: LORATADINE 10 MG TAB PO SCH (09:59)
--- NOTE | 2022-07-16 10:03 | XRay Report ---
SINGLE VIEW PELVIS; 2 VIEWS LEFT HIP CLINICAL HISTORY: Fall. FINDINGS: An AP view of the pelvis with AP and frog-leg views of the left hip are compared to study d ated 05/17/2022. The skeletal structures are osteopenic. There is no radiographic evidence of acute fr acture involving the hips or bony pelvis. A left hip arthroplasty is in near anatomic alignment. No p eriprosthetic lucency is seen. Mild degenerative change and joint space narrowing is noted in the rig ht hip. Sclerotic change is noted in the pubic symphysis. Mild lumbosacral spondylosis is partially i keisha. The overlying soft tissues are within normal notes. Excreted IV contrast fills the bladder. IMPRESSION: 1. No acute bony abnormality is identified. 2. A left hip arthroplasty is in near anatomic alignment. Electronically signed by: Waylon Berry M.D. 07/16/2022 10:01 AM
--- NOTE | 2022-07-16 10:05 | XRay Report ---
LEFT SHOULDER 2 VIEWS CLINICAL HISTORY: Fracture. FINDINGS: 2 views of the left shoulder are compared to study dated 05/25/2022. The skeletal structures are osteopenic. There is unchanged alignment of a subacute/healing impacted fracture of the left hum eral head and neck. There is mild persistent dorsal displacement of fragments. No new fracture is see n. Arthritic change is noted at the glenohumeral articulation. The acromioclavicular joint appears ma intained. The overlying soft tissues are normal as visualized. The visualized left lung parenchyma ap pears clear. IMPRESSION: Unchanged alignment of a healing left proximal humeral fracture as above. Electronically signed by: Waylon Berry M.D. 07/16/2022 10:03 AM
[2022-07-16 10:06] LABS: Albumin Level 2.7 gm/dl (3.4-5.0); Bilirubin,Total 0.6 mg/dl (0.2-1.0); Calcium 8.1 mg/dl (8.6-10.3); Potassium 3.4 mmol/L (3.5-5.1)
[2022-07-16 10:12] LABS: Albumin Globulin Ratio 0.9 (0.9-2); BUN Creatinine Ratio 14.5 (10-20); Est GFR (African American) 94.6 ml/min; Est GFR (Non-African American) 81.6 ml/min; Globulin 3.1 gm/dl (2.5-4.0); Total Protein 5.8 gm/dl (6.0-8.3)
--- NOTE | 2022-07-16 13:02 | Orthopedic Consultation ---
Date of Service July 16, 2022 Assessment & Plan (1) Fracture of proximal end of humerus: (2) Olecranon fracture: (3) History of partial replacement of left hip joint using bipolar prosthesis: She was seen and examined by Dr. Clemons today. She is now 2 months out from these injuries. She does not need a sling for the left arm. We will order therapy for her for active/active-assisted range of motion of the left shoulder and elbow. No resistance exercises yet. Gait training/wbat on the lower extremities. She can follow up as needed as an outpatient. History of Present Illness Reason for Consultation: . Requesting Physician: . Attending Physician: Arnol Bruce . Edda is a 87 year old who is 2 months s/p left hip hemiarthroplasty for a fracture, left proximal humerus fracture, and left olecranon fracture. The humerus and olecranon fractures were treated nonoperatively. She had an office appointment tomorrow with Dr. Clemons for routine follow up but was admitted for PE's. Her hip and shoulder are doing reasonably well. Still some elbow pain. She has not been wearing a sling. She did have a fall about 10 days ago but didn't injure anything. No other orthopedic complaints. Allergies Allergy/AdvReac Type Severity Reaction Status Date / Time adhesive Allergy Intermediate rash Verified 07/14/22 10:26 codeine Allergy Intermediate ITCHING Verified 07/14/22 10:26 oxycodone Allergy Intermediate ITCHING Verified 07/14/22 10:26 Penicillins Allergy Intermediate ITCHING Verified 07/14/22 10:26 Home Medications Medication Instructions Recorded Confirmed Type oxycodone 5 mg tablet 2.5 mg PO Q4H PRN moderate to 05/20/22 07/15/22 Rx severe pain (5,6,7,8,9,10) #12 tabs Walking Cane #1 ea 06/06/22 07/14/22 Rx acetaminophen 325 mg tablet 650 mg PO Q4H PRN mild pain (scale 06/16/22 07/15/22 Rx score 1-4) #120 tabs cyanocobalamin (vitamin B-12) 1,000 mcg PO DAILY #90 tabs 06/16/22 07/15/22 Rx 1,000 mcg tablet (Vitamin B-12) furosemide 20 mg tablet 20 mg PO DAILY #90 tabs 06/16/22 07/15/22 Rx lanolin alcohols-mineral 1 applic topical BID PRN dry skin, 06/16/22 07/15/22 Rx oil-w.petrolatum-ceresin topical skin breakdown #454 grams cream (Eucerin topical cream) losartan 50 mg tablet 50 mg PO HS #90 tabs 06/16/22 07/15/22 Rx meclizine 25 mg tablet 25 mg PO TID PRN Dizziness #60 tabs 06/16/22 07/15/22 Rx omeprazole 20 mg capsule,delayed 20 mg PO QAM #90 caps 06/16/22 07/15/22 Rx release verapamil 120 mg tablet 120 mg PO BID #180 tabs 06/17/22 07/15/22 Rx sennosides 8.6 mg-docusate sodium 2 tab PO HS PRN constipation #180 07/02/22 07/15/22 Rx 50 mg tablet (Senokot-S) tabs cholestyramine-aspartame 4 gram 4 g PO DAILY #60 ea 07/14/22 07/15/22 Rx oral powder for susp in a packet (Cholestyramine Light) coconut oil 1,000 mg capsule 1,000 mg PO DAILY #90 caps 07/14/22 07/15/22 Rx ergocalciferol (vitamin D2) 1,250 50,000 unit PO Q7D@0900 #12 caps 07/14/22 07/15/22 Rx mcg (50,000 unit) capsule loratadine 10 mg tablet 10 mg PO DAILY #90 tabs 07/14/22 07/15/22 Rx escitalopram oxalate 10 mg tablet 10 mg PO DAILY 07/15/22 07/15/22 History potassium chloride 10 mEq 10 meq PO DAILY 07/15/22 07/15/22 History tablet,extended release Past Med/Surg History Medical History Diaphragmatic hernia Diverticulosis of colon HTN (hypertension) Surgical History History of cholecystectomy History of right mastectomy Family History Sister Breast cancer Lung cancer Ovarian cancer Father Stomach cancer Prostate cancer Brother Myocardial infarction Diabetes Mother Hypertension Diabetes Denies family history of Colorectal cancer Social History Smoking Status: Never smoker Second Hand Exposure: No; Do You Dip or Chew Tobacco: No; Tobacco Cessation Education Requested by Patient: No Hx Alcohol Use: No Hx Substance Use: No Preferred Language: [place] Communication Ability: Effective Legal Aid Required: No Beliefs That Will Affect Care: None Current Living Situation: Personal Care Facility Current Living Situation Comment: lives next to son and daughter in law Other Information That Helps Us Care for You: No Feels Safe at Home: Yes Safety Concerns: Feels Safe At This Time Assistive Devices: Cane and Walker Review of Systems All systems reviewed & are unremarkable except as noted in HPI & below. Physical Exam .alert and oreinted. NAD Left leg: hip incision healed well. No signs of infection. Able to dorsiflex and plantarflex. NVI Left arm: Able to actively raise her shoulder. No pain with gentle over head elevation and internal/external rotation. Some ecchymosis of the elbow. Can actively extend elbow but lacks about 20 degrees of extension. Good elbow flexion. NVI Results & Data Results & Data Laboratory Results . Diagnostic Findings . 2 views of the left shoulder show healing proximal humerus fracture in acceptable alignment. AP pelvis and Ap/lateral of the left hip show a cemented hemiarthroplasty in good position. No dislocation. PG Care Time/CCT Total # of Minutes Spent Total Time Spent with Patient: Total time spent is greater than 50% in coordination of care (as documented) at patient's floor/unit and/or counseling patient: Coding Level of Care Code None Diagnoses Fracture of proximal end of humerus S42.209A Olecranon fracture S52.023A History of partial replacement of left hip joint using bipolar prosthesis Z96.642
[2022-07-16] MEDS: HEPARIN SODIUM/DEXTROSE 25,000 UNITS/500 ML BAG IV SCH (14:05)
--- NOTE | 2022-07-16 15:56 | XCELERA ---
[id number]
--- NOTE | 2022-07-16 16:50 | Cardiology Consultation ---
Date of Consultation July 16, 2022 Assessment & Plan (1) Paroxysmal A-fib: (2) Pulmonary embolism: (3) Deep vein thrombosis, lower left extremity: (4) Pulmonary hypertension: Plan ASSESSMENT/PLAN: 1. Paroxysmal atrial fibrillation: Apparently had cardioversion in the past and is symptomatic with episodes. Patient and family agree that this occurs infrequently. Continue verapamil, which has been used by previous providers, for rate control strategy. She had not been on long-term anticoagulation therapy but now receiving anticoagulation therapy in the setting of acute PE and DVT. 2. PE/DVT: As per primary service. On anticoagulation therapy. 3. Pulmonary hypertension: Likely due to newly diagnosed pulmonary embolism. She appears euvolemic. 4. Concern for CHF: She appears euvolemic. She apparently is on low-dose Lasix at home. It is not clear if she has been formally diagnosed with heart failure in the past. Prior [facility] cardiology records can be obtained in anticipation of future follow-up in the cardiology clinic. There is no suggestion of acute decompensation of heart failure at the time of today's visit. She had received 40 mg of IV Lasix and has negative fluid balance. 5. Disposition: Family would like for her appointment with Dr. Moeller to be rescheduled as she missed her initial evaluation with him today. Message sent to the cardiology office to help facilitate this. Patient care has been discussed with Dr. Mullen of the primary hospitalist service. Cardiology will sign off for now. Call with questions or concerns. Thank you for allowing me to participate in the care of your patient. Please call for any other questions or concerns. Sincerely, Salo Emery M.D. History of Present Illness Reason for Consultation: family request/heart failure Requesting Physician: Arnol Bruce Attending Physician: Arnol Bruce History of Present Illness Mrs Starr is a very pleasant 87-year-old female with a history significant for paroxysmal atrial fibrillation, hypertension, Parkinson's with memory decline, dyslipidemia, and breast cancer (s/p surgery; no chemo or radiation). Her primary steam engineer was Dr. Montgomery of [facility], but she was scheduled to establish care with Dr. Moeller of [facility] cardiology today. Family requested that she be seen by [facility] cardiology during this hospitalization and that her appointment be rescheduled. She was admitted on 07/15/2022 with large pulmonary embolus involving the right main pulmonary artery with extension to branch vessels, predominantly in the right lower lobe. There was concern on CT imaging for developing pulmonary infarct. She also had lower extremity Doppler which demonstrated extensive left leg DVT, but no DVT in the right leg. She denies shortness of breath, chest pain, syncope, near syncope, or bleeding such as melena, hematochezia, or hematuria. She recalls that her left leg has been swollen for a couple of weeks. She had been hospitalized in May 2022 with left proximal femur fracture and olecranon fracture. She had an outpatient lower extremity Doppler done which demonstrated extensive DVT and therefore she was prompted to come to the ER for further evaluation and treatment by her PCP. She recalls having palpitations on occasion. She recalls having atrial fibrillation and states that she has had cardioversion many years ago. She states that when she has palpitations they are very brief, lasting only a few minutes. According to available records for review, she has not been on anticoagulation therapy for atrial fibrillation due to falls. Her [id number], Bhargav Starr, was called as per patient request. Bhargav was able to supply some of her cardiac history. She states that she was seeing Dr. Montgomery on an annual basis for paroxysmal atrial fibrillation. She also did worsening cognitive/memory issues for Mrs. Starr. When reviewing records, there is no mention of prior heart failure diagnosis. While hospitalized in May 2022 with hip fracture, she was placed on Lasix sometime after surgery for hypoxia. History and physical from 05/16/2022 had reported home Lasix of 20 mg at that time as well. Review of systems: As above. Review of systems otherwise negative/unremarkable. Family history: Noncontributory. Social history: She denies tobacco, alcohol, or drug abuse. She lives alone. . Has a son and a daughter. She was alone in her hospital room. Allergies Allergy/AdvReac Type Severity Reaction Status Date / Time adhesive Allergy Intermediate rash Verified 07/14/22 10:26 codeine Allergy Intermediate ITCHING Verified 07/14/22 10:26 oxycodone Allergy Intermediate ITCHING Verified 07/14/22 10:26 Penicillins Allergy Intermediate ITCHING Verified 07/14/22 10:26 Home Medications Medication Instructions Recorded Confirmed Type oxycodone 5 mg tablet 2.5 mg PO Q4H PRN moderate to 05/20/22 07/15/22 Rx severe pain (5,6,7,8,9,10) #12 tabs Walking Cane #1 ea 06/06/22 07/14/22 Rx acetaminophen 325 mg tablet 650 mg PO Q4H PRN mild pain (scale 06/16/22 07/15/22 Rx score 1-4) #120 tabs cyanocobalamin (vitamin B-12) 1,000 mcg PO DAILY #90 tabs 06/16/22 07/15/22 Rx 1,000 mcg tablet (Vitamin B-12) furosemide 20 mg tablet 20 mg PO DAILY #90 tabs 06/16/22 07/15/22 Rx lanolin alcohols-mineral 1 applic topical BID PRN dry skin, 06/16/22 07/15/22 Rx oil-w.petrolatum-ceresin topical skin breakdown #454 grams cream (Eucerin topical cream) losartan 50 mg tablet 50 mg PO HS #90 tabs 06/16/22 07/15/22 Rx meclizine 25 mg tablet 25 mg PO TID PRN Dizziness #60 tabs 06/16/22 07/15/22 Rx omeprazole 20 mg capsule,delayed 20 mg PO QAM #90 caps 06/16/22 07/15/22 Rx release verapamil 120 mg tablet 120 mg PO BID #180 tabs 06/17/22 07/15/22 Rx sennosides 8.6 mg-docusate sodium 2 tab PO HS PRN constipation #180 07/02/22 0 07/15/22 Rx 50 mg tablet (Senokot-S) tabs cholestyramine-aspartame 4 gram 4 g PO DAILY #60 ea 07/14/22 07/15/22 Rx oral powder for susp in a packet (Cholestyramine Light) coconut oil 1,000 mg capsule 1,000 mg PO DAILY #90 caps 07/14/22 07/15/22 Rx ergocalciferol (vitamin D2) 1,250 50,000 unit PO Q7D@0900 #12 caps 07/14/22 07/15/22 Rx mcg (50,000 unit) capsule loratadine 10 mg tablet 10 mg PO DAILY #90 tabs 07/14/22 07/15/22 Rx escitalopram oxalate 10 mg tablet 10 mg PO DAILY 07/15/22 07/15/22 History potassium chloride 10 mEq 10 meq PO DAILY 07/15/22 07/15/22 History tablet,extended release Patient History Medical History Deep vein thrombosis, lower left extremity 07-14-22 Extensive nearly occlusive to occlusive deep venous thrombosis throughout the left lower extremity Dementia Diaphragmatic hernia Diverticulosis of colon Dyslipidemia Fracture of proximal end of humerus GERD (gastroesophageal reflux disease) HTN (hypertension) Hx of breast cancer IBS (irritable bowel syndrome) Olecranon fracture Parkinsons disease Paroxysmal A-fib Pulmonary embolism Surgical History History of cholecystectomy History of right mastectomy Family History Sister Breast cancer Lung cancer Ovarian cancer Father Stomach cancer Prostate cancer Brother Myocardial infarction Diabetes Mother Hypertension Diabetes Denies family history of Colorectal cancer Social History Smoking Status: Never smoker Second Hand Exposure: No; Do You Dip or Chew Tobacco: No; Tobacco Cessation Education Requested by Patient: No Hx Alcohol Use: No Hx Substance Use: No Preferred Language: Turkish Communication Ability: Effective 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 Alert. HEENT: Anicteric sclera. Neck: No JVD. No bruits. Normal carotid upstrokes bilaterally. Cardiac: PMI was nondisplaced. No ventricular heave. Regular. Normal S1-S2. No murmurs, rubs, or gallops. Pulmonary: Clear to auscultation bilaterally without wheezes, rales, or rhonchi. Abdomen: Soft, nontender, nondistended, with normoactive bowel sounds. No bruits noted. Extremities: 2+ radial pulses bilaterally. Trace left lower extremity edema. No cyanosis. Results & Data Vital Signs (Past 12 Hours) Vital Signs Temp Pulse Resp BP Pulse Ox O2 Del Method O2 Flow Rate 07/16/22 15:23 36.4 C L 71 20 140/68 92 Room Air 07/16/22 13:17 Nasal Cannula 2 07/16/22 11:44 36.8 C 69 19 123/72 96 Nasal Cannula 2 07/16/22 07:40 37.1 C 62 20 133/59 L 97 Nasal Cannula 2 Laboratory Results Laboratory Results - last 24 hr 07/15/22 07/15/22 07/15/22 15:53 15:53 17:15 WBC RBC Hgb Hct MCV MCH MCHC RDW Std Deviation RDW Coeff of Ysabel Plt Count MPV Immature Gran % (Auto) Neut % (Auto) Lymph % (Auto) Mclennan % (Auto) Eos % (Auto) Baso % (Auto) Neut # (Auto) Lymph # (Auto) Mclennan # (Auto) Eos # (Auto) Baso # (Auto) Immature Gran # (Auto) PT Cancelled 13.1 H INR Cancelled 1.2 H APTT Cancelled 28.0 PTT Ratio Cancelled 1.0 Sodium Potassium Chloride Carbon Dioxide Anion Gap BUN Creatinine Est Cr Clr Drug Dosing Est GFR ( Amer) Est GFR (Non-Af Amer) BUN/Creatinine Ratio Glucose Calcium Total Bilirubin AST ALT Alkaline Phosphatase Troponin I High Sens B-Natriuretic Peptide Total Protein Albumin Globulin Albumin/Globulin Ratio Procalcitonin 0.06 07/15/22 07/15/22 07/16/22 19:02 20:40 00:27 WBC RBC Hgb Hct MCV MCH MCHC RDW Std Deviation RDW Coeff of Ysabel Plt Count MPV Immature Gran % (Auto) Neut % (Auto) Lymph % (Auto) Mclennan % (Auto) Eos % (Auto) Baso % (Auto) Neut # (Auto) Lymph # (Auto) Mclennan # (Auto) Eos # (Auto) Baso # (Auto) Immature Gran # (Auto) PT INR APTT 68.5 H* PTT Ratio 2.4 Sodium Potassium Chloride Carbon Dioxide Anion Gap BUN Creatinine Est Cr Clr Drug Dosing Est GFR ( Amer) Est GFR (Non-Af Amer) BUN/Creatinine Ratio Glucose Calcium Total Bilirubin AST ALT Alkaline Phosphatase Troponin I High Sens 22.5 H B-Natriuretic Peptide 292 H Total Protein Albumin Globulin Albumin/Globulin Ratio Procalcitonin 07/16/22 07/16/22 07/16/22 08:37 08:37 08:37 WBC 6.40 RBC 4.11 L Hgb 11.6 L Hct 34.6 L MCV 84.2 MCH 28.2 MCHC 33.5 RDW Std Deviation 43.7 RDW Coeff of Ysabel 14.3 Plt Count 390 MPV 9.4 Immature Gran % (Auto) 0.5 Neut % (Auto) 70.4 Lymph % (Auto) 19.2 Mclennan % (Auto) 8.8 Eos % (Auto) 0.6 Baso % (Auto) 0.5 Neut # (Auto) 4.51 Lymph # (Auto) 1.23 Mclennan # (Auto) 0.56 Eos # (Auto) 0.04 Baso # (Auto) 0.03 Immature Gran # (Auto) 0.03 PT INR APTT 55.0 H* PTT Ratio 2.0 Sodium 139 Potassium 3.4 L Chloride 100 Carbon Dioxide 33 H Anion Gap 6 BUN 9 Creatinine 0.62 Est Cr Clr Drug Dosing 61.0 Est GFR ( Amer) 94.6 Est GFR (Non-Af Amer) 81.6 BUN/Creatinine Ratio 14.5 Glucose 120 H Calcium 8.1 L Total Bilirubin 0.6 AST 37 ALT 27 Alkaline Phosphatase 131 H Troponin I High Sens B-Natriuretic Peptide Total Protein 5.8 L Albumin 2.7 L Globulin 3.1 Albumin/Globulin Ratio 0.9 Procalcitonin Diagnostic Findings History and physical report reviewed. PCP note from 06/16/2022 reviewed. History and physical from 05/16/2022 and discharge summary from 05/21/2022 reviewed. Labs reviewed and notable for mild hypokalemia, stable renal function, mild anemia (stable), reasonable LDL, normal TSH, normal transaminase levels, mildly elevated BNP, mildly elevated high-sensitivity troponin, peaking at 22.6. ECG personally reviewed from 07/15/2022: Sinus rhythm 71 bpm. Possible RV conduction delay. Echo 07/16/2022: Normal LV size, wall motion, systolic function. EF 65 to 70%. Mild LVH. Moderate MAC. RVSP 41. CTA of the chest report reviewed as summarized in HPI. Lower extremity Doppler report reviewed and summarized in HPI. Medications Administered Current Inpatient Medications Acetaminophen (Acetaminophen 325 Mg Tab) 650 mg PO Q4H PRN PRN Reason: Pain or Fever Stop: 08/14/22 20:09 Cholestyramine Resin (Cholestyramine Light 4 Gm Pkt) 4 gm PO DAILY@1000 [facility] Stop: 08/15/22 09:59 Last Admin: 07/16/22 09:59 Dose: 4 gm Cyanocobalamin (Cyanocobalamin (B-12) 500 Mcg Tablet) 1,000 mcg PO DAILY [facility] Stop: 08/15/22 08:59 Last Admin: 07/16/22 09:59 Dose: 1,000 mcg Escitalopram Oxalate (Escitalopram Oxalate 10 Mg Tab) 10 mg PO DAILY [facility] Stop: 08/15/22 08:59 Last Admin: 07/16/22 09:58 Dose: 10 mg Heparin Sodium/Dextrose (Heparin Sodium/Dextrose) 25,000 units in 500 mls @ 23 mls/hr IV .[id number] [facility]; Protocol Stop: 08/14/22 17:44 Last Admin: 07/16/22 14:05 Dose: 1,150 units/hr, 23 mls/hr Loratadine (Loratadine 10 Mg Tab) 10 mg PO DAILY [facility] Stop: 08/15/22 08:59 Last Admin: 07/16/22 09:59 Dose: 10 mg Multi-Ingredient Cream (Eucerin Cr 120 Gm Jar) 1 appln TOP BID PRN PRN Reason: dry skin, skin breakdown Stop: 08/14/22 20:26 Oxycodone HCl (Oxycodone Hcl Ir 5 Mg Tab (Immediate Release)) 2.5 mg PO Q4H PRN PRN Reason: moderate to severe pain (5,6,7,8,9,10) Stop: 07/29/22 20:26 Pantoprazole Sodium (Pantoprazole 40 Mg Tab) 40 mg PO QAM [facility] Stop: 08/15/22 08:59 Last Admin: 07/16/22 09:59 Dose: 40 mg Potassium Chloride (Potassium Chloride 10 Meq Tabcr) 10 meq PO DAILY [facility] Stop: 08/15/22 08:59 Last Admin: 07/16/22 09:59 Dose: 10 meq Verapamil HCl (Verapamil Hcl 40 Mg Tab) 120 mg PO BID [facility] Stop: 08/14/22 20:59 Last Admin: 07/16/22 09:59 Dose: 120 mg PG Care Time/CCT Total # of Minutes Spent Total Time Spent with Patient: Total time spent is greater than 50% in coordination of care (as documented) at patient's floor/unit and/or counseling patient: Coding Level of Care Code 07975 INT INP/OBS CARE 2/MIN Diagnoses Paroxysmal A-fib I48.0 Pulmonary embolism I26.94 Pulmonary embolism type: multiple subsegmental (without acute cor pulmonale) Deep vein thrombosis, lower left extremity I82.402 Pulmonary hypertension I27.20 (2) Pulmonary embolism Pulmonary embolism type: multiple subsegmental (without acute cor pulmonale) Qualified Code(s): I26.94 - Multiple subsegmental pulmonary emboli without acute cor pulmonale
[2022-07-16] MEDS: ACETAMINOPHEN 325 MG TAB PO PRN (20:33)
--- NOTE | 2022-07-16 22:02 | Hospitalist Progress Note ---
Date of Service July 16, 2022 Assessment & Plan (1) Pulmonary embolism: Plan: Nb: recently switched PCP so she is now a [facility] patient despite being seen by [facility] last admission Provoked from recent surgery and lack of movement. IV heparin. Large PE with pulmonary infarction Patient is now on 2 liters from 3 liters the night prior will transition to Eliquis and will stop heparin. will monitor her improvement, patient is not currently tachycardic. Echo completed. Patient does not appear to be fluid overloaded. Will obtain PT/OT eval. May need home O2 at discharge as she recovers from this PE (2) Hypoxia: Plan: Suspect secondary to pulmonary embolism as above with pulmonary infarction noted on CT +/- CHF Low tolerance to start antibiotics given high risk of secondary bacterial infection. However, given procalcitonin and WBC normal on admission will defer antibiotics Incentive spirometer (3) Heart failure with acute decompensation, type unknown: Plan: Last 40mg IV now, defer further doses to oncoming provider depending on response TTE Strict I&Os, daily weights (4) Diarrhea: Plan: Chronic - noted EHR diagnosis of IBS Start cholestyramine - prescribed but not yet started this as outpatient Stool PCR requested by daughter while here (5) Paroxysmal A-fib: Plan: Previously elected against anticoagulation due to falls risk but not much Continue verapamil for rate control (6) Parkinsons disease: Plan: Continue coconut oil. Unclear why she isn't on any more treatment for this. Consider neurology inpatient consult given continued falls risk. (7) GERD (gastroesophageal reflux disease): Plan: Switch omeprazole to pantoprazole per hospital formulary (8) Depression: Plan: Continue Lexapro (9) HTN (hypertension): Plan: Hold losartan in setting of PE and need for lasix increase Continue verapamil for this and rate control Plan VTE Prophylaxis - heparin IV Diet - regular Admission and Anticipated Discharge Date Admission Date: July 15, 2022 Subjective Patient reports breathing better today. She has no new complaints. Review of Systems Review of Systems: All systems reviewed & are unremarkable except as noted in HPI & below Physical Exam Constitutional: well developed and + frail appearing; + not well nourished and no acute distress Respiratory: normal respiratory effort; no respiratory distress Auscultat ion: breath sounds present, no diminished lung sounds, no rales and no wheezes Cardiovascular: Rate/Rhythm: regular rate and regular rhythm Heart Sounds: no murmur Extremities: + pedal edema (3+ b/l pitting) Gastrointestinal (Abdomen): normal bowel sounds, soft, nontender, no hepatosplenomegaly Musculoskeletal: no cyanosis or clubbing, extremities motor strength 5/5 Skin: no rashes, warm and dry Neurologic: moves all extremities and awake; not confused Psychiatric: Orientation: alert, oriented to person and oriented to place; + not oriented to time Results & Data Results & Data Vital Signs (Past 12 Hours) Vital Signs Temp Pulse Resp BP Pulse Ox O2 Del Method O2 Flow Rate 07/16/22 19:34 36.8 C 70 20 140/62 97 Room Air, Nasal Cannula 2 07/16/22 15:23 36.4 C L 71 20 140/68 92 Room Air 07/16/22 13:17 Nasal Cannula 2 07/16/22 11:44 36.8 C 69 19 123/72 96 Nasal Cannula 2 PG Care Time/CCT Total # of Minutes Spent Total Time Spent with Patient: Total time spent is greater than 50% in coordination of care (as documented) at patient's floor/unit and/or counseling patient: Coding Level of Care Code 75508 SUB INP/OBS CARE 2/35MIN Diagnoses Pulmonary embolism I26.94 Pulmonary embolism type: multiple subsegmental (without acute cor pulmonale) Hypoxia R09.02 Heart failure with acute decompensation, type unknown I50.9 Diarrhea R19.7 Paroxysmal A-fib I48.0 Parkinsons disease G20 GERD (gastroesophageal reflux disease) K21.9 Depression F32.A HTN (hypertension) I10 (1) Pulmonary embolism Pulmonary embolism type: multiple subsegmental (without acute cor pulmonale) Qualified Code(s): I26.94 - Multiple subsegmental pulmonary emboli without acute cor pulmonale
--- NOTE | 2022-07-16 23:10 | Electrocardiogram Report ---
Test Reason : Blood Pressure : / mmHG Vent. Rate : 071 BPM Atrial Rate : 071 BPM P-R Int : 172 ms QRS Dur : 090 ms QT Int : 414 ms P-R-T Axes : 023 011 015 degrees QTc Int : 449 ms Normal sinus rhythm RSR' or QR pattern in V1 suggests right ventricular conduction delay Borderline ECG When compared with ECG of 16-MAY-2022 14:03, No significant change was found Confirmed by Ady Emery ([id number]) on 07/16/2022 11:10:23 PM Referred By: REFERRED SELF Confirmed By:Ady Emery
[2022-07-16] MEDS: APIXABAN 5 MG TABLET PO SCH (23:25)
--- NOTE | 2022-07-17 07:09 | Hospitalist Progress Note ---
Date of Service July 17, 2022 Assessment & Plan (1) Pulmonary embolism: Plan: Pulmonary embolism: Plan: Acute high risk, present on admission Large PE with pulmonary infarction Provoked from recent surgery treated with IV heparin, transitioned to Eliquis. Requiring supplemental oxygen, Elevated pulmonary pressures seen on Echo, will test to see if needed home oxygen PT/OT eval. (2) Hypoxia: Plan: acute hypoxia , moderate risk, resolving r secondary to pulmonary embolism as above with pulmonary infarction noted on CT +/- CHF Incentive spirometer (3) Heart failure with acute decompensation, type unknown: Plan: Echocardiography does not suggest systolic or diastolic dysfunction but acute pulmonary hypertension likely from PE with it. No signs of reduced ejection fraction (4) Diarrhea: Plan: Chronic - noted EHR diagnosis of IBS Start cholestyramine - prescribed but not yet started this as outpatient Stool PCR requested by daughter while here (5) Paroxysmal A-fib: Plan: Chronic and stable previously elected against anticoagulation due to falls risk but not much Continue verapamil for rate control (6) Parkinsons disease: Plan: Chronic unclear if stable falls may be related to Parkinson's disease she however is nonambulatory at unclear whether intervention would improve this May have outpatient neurological evaluation if needed (7) GERD (gastroesophageal reflux disease): Plan: Chronic and stable switch omeprazole to pantoprazole per hospital formulary (8) Depression: Plan: Chronic and stable continue Lexapro (9) HTN (hypertension): Plan: Chronic unstable hold losartan in setting of PE and need for lasix increase Continue verapamil for this and rate control Plan VTE Prophylaxis -therapeutic anticoagulation Admission and Anticipated Discharge Date Admission Date: July 15, 2022 Subjective Patient is pleasant not confused she has been tapered down to lower limits of oxygen. She typically is nonambulatory therefore a ambulatory oxygen saturation just cannot be performed Are being transferred to personal-skilled nursing likely on 07/18 Physical Exam Physical Exam: Awake able to answer questions No discernible shortness of breath lungs are clear Cardiac exam is regular Extremities are with trace edema Results & Data Results & Data Vital Signs (Past 12 Hours) Vital Signs Temp Pulse Pulse Resp BP Pulse Ox O2 Del Method 07/17/22 03:00 97.7 F 57 L 20 121/54 L 98 Nasal Cannula 07/16/22 21:00 Nasal Cannula 07/16/22 21:59 67 07/16/22 22:18 97.9 F 66 20 124/54 L 98 Nasal Cannula 07/16/22 19:34 98.2 F 70 20 140/62 97 Room Air, Nasal Cannula O2 Flow Rate FiO2 07/17/22 03:00 2 07/16/22 21:00 2 28 07/16/22 21:59 07/16/22 22:18 2 07/16/22 19:34 2 Laboratory Results reviewed CBC PG Care Time/CCT Total # of Minutes Spent Total Time Spent with Patient: Total time spent is greater than 50% in coordination of care (as documented) at patient's floor/unit and/or counseling patient: Coding Level of Care Code 79111 SUB INP/OBS CARE 3/50MIN Diagnoses Pulmonary embolism I26.94 Pulmonary embolism type: multiple subsegmental (without acute cor pulmonale) Hypoxia R09.02 Heart failure with acute decompensation, type unknown I50.9 Diarrhea R19.7 Paroxysmal A-fib I48.0 Parkinsons disease G20 GERD (gastroesophageal reflux disease) K21.9 Depression F32.A HTN (hypertension) I10 (1) Pulmonary embolism Pulmonary embolism type: multiple subsegmental (without acute cor pulmonale) Qualified Code(s): I26.94 - Multiple subsegmental pulmonary emboli without acute cor pulmonale
[2022-07-17 08:10] LABS: Hematocrit (blood only) 33.7 % (37.0-47.0); Hemoglobin 11.3 g/dl (12.0-16.0); Mean Corpuscular Hemoglobin 28.2 pg (25.0-34.0); Mean Corpuscular Hgb Conc 33.5 g/dL (32.0-36.0); Mean Platelet Volume 9.4 fL (9.4-12.4); Platelet Count 409 K/uL (130-400); RDW Coefficient of Variation 13.7 % (11.5-14.5); RDW Standard Deviation 42.5 fL (36.4-46.3); Red Blood Count 4.01 M/uL (4.20-5.40)
[2022-07-17] MEDS: PANTOprazole 40 MG TAB PO SCH (08:16)
[2022-07-17] MEDS: ESCITALOPRAM OXALATE 10 MG TAB PO SCH (08:16)
[2022-07-17] MEDS: CYANOCOBALAMIN (B-12) 500 MCG TABLET PO SCH (08:16)
[2022-07-17] MEDS: LORATADINE 10 MG TAB PO SCH (08:16)
[2022-07-17] MEDS: VERAPAMIL HCL 40 MG TAB PO SCH ×2 (08:16→21:00)
[2022-07-17] MEDS: APIXABAN 5 MG TABLET PO SCH ×2 (08:17→20:59)
[2022-07-17] MEDS: POTASSIUM CHLORIDE CRTAB 20 MEQ TABCR PO SCH (13:42)
[2022-07-17] MEDS: CHOLESTYRAMINE LIGHT 4 GM PKT PO SCH (15:58)
[2022-07-17] MEDS: ACETAMINOPHEN 325 MG TAB PO PRN (20:59)
[2022-07-18 08:20] LABS: Adenovirus F 40/41 PCR Not Detected (NotDetected); Astrovirus PCR Not Detected (NotDetected); Campylobacter PCR Not Detected (NotDetected); Cryptosporidium PCR Not Detected (NotDetected); Cyclospora cayetanensis PCR Not Detected (NotDetected); Entamoeba histolytica PCR Not Detected (NotDetected); Enteroaggregative E.coli(EAEC) Not Detected (NotDetected); Enteropathogenic E.coli (EPEC) Not Detected (NotDetected); Enterotoxigenic E.coli (ETEC) Not Detected (NotDetected); Giardia lamblia PCR Not Detected (NotDetected); Norovirus GI/GII PCR Not Detected (NotDetected); Plesiomonas shigelloides PCR Not Detected (NotDetected); Rotavirus A PCR Not Detected (NotDetected); Salmonella PCR Not Detected (NotDetected); Sapovirus PCR Not Detected (NotDetected); Shiga-like Toxin E.coli (STEC) Not Detected (NotDetected); Shigella/Enteroinvasive E.coli Not Detected (NotDetected); Vibrio cholerae PCR Not Detected (NotDetected); Vibrio species PCR Not Detected (NotDetected); Yersinia enterocolitica PCR Not Detected (NotDetected)
[2022-07-18] MEDS: VERAPAMIL HCL 40 MG TAB PO SCH (08:37)
[2022-07-18] MEDS: CYANOCOBALAMIN (B-12) 500 MCG TABLET PO SCH (08:37)
[2022-07-18] MEDS: APIXABAN 5 MG TABLET PO SCH (08:37)
[2022-07-18] MEDS: ESCITALOPRAM OXALATE 10 MG TAB PO SCH (08:38)
[2022-07-18] MEDS: PANTOprazole 40 MG TAB PO SCH (08:38)
[2022-07-18] MEDS: LORATADINE 10 MG TAB PO SCH (08:38)
[2022-07-18] MEDS: POTASSIUM CHLORIDE CRTAB 20 MEQ TABCR PO SCH (08:38)
--- NOTE | 2022-07-18 18:25 | Discharge Summary ---
Date of Service July 18, 2022 Admission HPI Per Admitting Provider Edda Starr is an 87 year old female with Parkinson's disease who presents to the ER after outpatient US venous doppler showed extensive DVT. History mainly obtained from EHR and daughter at bedside but patient was able to contribute but clearly has some memory issues with timelines. She was recently admitted to [facility] from May 16 - 2022 due to left proximal femur fracture, olecranon fracture. She was treated with Lovenox post operatively for DVT prophylaxis. She was discharged to rehab at [facility] and then [facility] in [place]. She followed up with her PCP yesterday and had a number of concerns. Most notably she has been too short of breath to do physical therapy, cough (occurs while talking). She was also having significant leg swelling therefore was sent for US venous doppler today which showed extensive DVT therefore she was sent straight to the ER for evaluation. Ct for PE in the ER showed extensive right pulmonary artery embolus therefore she was referred to medicine for admission and ongoing management. Regarding the shortness of breath she denies any chest pain, orthopnea, PND, palpitation or presyncope. No fever, chills, nasal congestion or sinus pain. She reports chronic diarrhea although was also recently being treated with a laxative. Stool is yellow/orange. Unknown last colonoscopy. She denies any recent change to this. Cholestyramine just prescribed yesterday for this but unclear if she has taken any doses. No nausea, vomiting, melena or hematochezia. She also uses only coconut oil for her Parkinson's disease which help with her shaking. She is planning on following up with neurology regarding this. She reports her legs sometimes just don't work. She has had a few falls since her discharge but nothing that resulted in any significant injury, most recently on July 06. Principal Diagnosis pulmonary embolism Discharge Exam Patient awake and alert still requiring oxygen therapy Discharge Data Allergies Allergy/AdvReac Type Severity Reaction Status Date / Time adhesive Allergy Intermediate rash Verified 07/14/22 10:26 codeine Allergy Intermediate ITCHING Verified 07/14/22 10:26 oxycodone Allergy Intermediate ITCHING Verified 07/14/22 10:26 Penicillins Allergy Intermediate ITCHING Verified 07/14/22 10:26 Consultations 07/15/22 17:52 ED Decision to Admit Stat 07/16/22 07:08 Consult Orthopedic Surgery Routine 07/16/22 13:17 Consult Cardiology Routine Ordered Studies 07/15/22 14:52 CT angio chest PE protocol Stat Hospital Course (1) Pulmonary embolism: Pulmonary embolism: Plan: Acute high risk, present on admission Large PE with pulmonary infarction Provoked from recent surgery treated with IV heparin, transitioned to Eliquis. Requiring supplemental oxygen, Elevated pulmonary pressures seen on Echo, will need home oxygen may benefit from retesting in 4 to 6 weeks (2) Hypoxia: acute hypoxia , moderate risk, resolving r secondary to pulmonary embolism as above with pulmonary infarction noted on CT +/- CHF Incentive spirometer encourage deep breathing (3) Heart failure with acute decompensation, type unknown: Echocardiography does not suggest systolic or diastolic dysfunction but acute pulmonary hypertension likely from PE with it. No signs of reduced ejection fraction (4) Diarrhea: Chronic - noted EHR diagnosis of IBS Start cholestyramine - prescribed but not yet started this as outpatient Stool PCR requested by daughter while here this has been negative after tested (5) Paroxysmal A-fib: Chronic and stable previously elected against anticoagulation due to falls risk require anticoagulation for pulm embolism Continue verapamil for rate control (6) Parkinsons disease: Chronic unclear if stable falls may be related to Parkinson's disease she however is nonambulatory at unclear whether intervention would improve this May have outpatient neurological evaluation if needed (7) GERD (gastroesophageal reflux disease): Chronic and stable switch omeprazole to pantoprazole per hospital formulary (8) Depression: Chronic and stable continue Lexapro (9) HTN (hypertension): Chronic unstable hold losartan in setting of PE and need for lasix increase Continue verapamil for this and rate control Total Time Total Time Spent Total Time Spent (In Minutes): It required greater than 30 minutes to prepare this patient for discharge Discharge Plan Discharge Items Patient Disposition: Personal Intermediate Reason For Visit: PULMONARY EMBOLISM Discharge Diagnosis: pulmonary embolism Activity: Resume your previous activity Non-emergency contact: Primary Care Provider Call non-emergency contact if: your symptoms worsen Follow-up/Referrals: Vito Gordon DO [Primary Care Provider] - Diet: Regular Addtl Attending Provider Instructions: Medication Instructions: Your condition is typically treated with an anticoagulant. Anticoagulants will thin your blood to help prevent new clots. * You should take her medication exactly as directed. * Never skip a dose. * Never take a double dose. If you miss a dose, take it as soon as you remember. Call your Primary Care doctor if you experience any of the following: * Swelling or Pain in your leg * Sudden, continuous pain deep in a muscle * Pain that worsens when you are active or when you stand still for a long time * Chest Pain * Sudden Shortness of Breath * Rapid or pounding heart beat * Fainting * Dizziness * Cough with blood or bloody sputum * Sweating more than normal * Bruises * Heavy or uncontrolled bleeding * Blood in your urine, stool or vomit * Black or tarry stools Caring for Your Self at Home: * Avoid sitting, standing or lying down for long periods without moving your legs and feet * When traveling by car, stop to get out and move around at least once every 3 hours * On long airplane, train or bus rides, get up and move around when possible * If you can't get up, wiggle your toes and tighten your calves to keep your blood moving Follow Up: It is important for you to keep your follow up appointments with your medical provider. Addtl Bottle Inspector Provider Instructions: This pulmonary embolism was considered provoked due to recent orthopedic surgery due to 6-month treatment window would be recommended however if patient remains in less acceptable immobile state long-term anticoagulation may be considered if there is no bleeding risks or side effects Pending Studies at Discharge: Yes Stand-Alone Forms: My [employer]One, Smoking Cessation Skilled Items Patient informed of condition?: Yes DNR: Yes Discharge Level of Care: Other Communicable Disease: No Discharge Prognosis: Stable Lines: None Urinary Catheter: No Medications and DC Order Prescriptions: New Eliquis 5 mg Tablet 10 mg PO BID Qty: 60 0RF Rx Instructions: after 6 days please reduce to 5 mg bid (DME) Oxygen Home Liters Per Minute See Rx Instructions .ROUTE Qty: 2 0RF Rx Instructions: As directed Continued (DME) Walking Cane Misc See Rx Instructions .MEDSUPPLY Qty: 1 0RF Rx Instructions: As directed verapamil 120 mg tablet 120 mg PO BID Qty: 180 3RF sennosides-docusate sodium [Senokot-S] 8.6-50 mg tablet 2 tab PO HS PRN (Reason: constipation) Qty: 180 3RF coconut oil 1,000 mg capsule 1,000 mg PO DAILY Qty: 90 3RF ergocalciferol (vitamin D2) 1,250 mcg (50,000 unit) capsule 50,000 unit PO Q7D@0900 Qty: 12 3RF Rx Instructions: Taken on Tuesdays loratadine 10 mg tablet 10 mg PO DAILY Qty: 90 3RF cholestyramine-aspartame [Cholestyramine Light] 4 gram powder in packet 4 g PO DAILY Qty: 60 5RF Rx Instructions: administer w/meal; avoid other meds within 1hr before or 4-6hr after dose acetaminophen 325 mg tablet 650 mg PO Q4H PRN (Reason: mild pain (scale score 1-4)) Qty: 120 11RF cyanocobalamin (vitamin B-12) [Vitamin B-12] 1,000 mcg tablet 1,000 mcg PO DAILY Qty: 90 3RF furosemide 20 mg tablet 20 mg PO DAILY Qty: 90 3RF losartan 50 mg tablet 50 mg PO HS Qty: 90 3RF meclizine 25 mg tablet 25 mg PO TID PRN (Reason: Dizziness) Qty: 60 5RF omeprazole 20 mg capsule,delayed release(DR/EC) 20 mg PO QAM Qty: 90 3RF Eucerin Cream 1 applic topical BID PRN (Reason: dry skin, skin breakdown) Qty: 454 5RF oxycodone 5 mg Tablet 2.5 mg PO Q4H PRN (Reason: moderate to severe pain (5,6,7,8,9,10)) Qty: 12 0RF potassium chloride 10 mEq tablet extended release 10 meq PO DAILY escitalopram oxalate 10 mg tablet 10 mg PO DAILY Discharge Orders: Discharge Order (Routine); Ordered 07/18/22 Ordered By: Demetrius Diallo Admission Data Admit Date/Time: 07/15/22 18:09 Attending Provider: Demetrius Diallo Admit Provider: Andrea Barron Primary Care Provider: Vito Gordon Other Providers: Andrea Barron ; Dusty Clemons ; Alton Segura ; Kaleb Segura ; Naun Diallo ; Dusty Moeller ; Kushal Corey ; Jorge Lazo Jr ; Ady Emery ; Mely Novak ; Maryam Ya ; Frederick Schmitt ; Jimbo Wild ; Atilio Corrigan ; Silvia Small ; Ciera Odell ; Deonte Martin ; Zenon Malave ; Dusty Cooper V. Other Interventions: Discharge Summary Assessment (RN) Last Done: 07/18/22 11:10 Coding Level of Care Code 56277 INP/OBS DISCH >30 MIN Diagnoses Pulmonary embolism I26.94 Pulmonary embolism type: multiple subsegmental (without acute cor pulmonale) Hypoxia R09.02 Heart failure with acute decompensation, type unknown I50.9 Diarrhea R19.7 Paroxysmal A-fib I48.0 Parkinsons disease G20 GERD (gastroesophageal reflux disease) K21.9 Depression F32.A HTN (hypertension) I10
== END 2022-07-18 12:55 | disposition home or self-care (01) | DRG 176 ==
LOC: ED 14:31 → 2E 18:09 → SUATTDRO 18:09 → 2E 19:38